=== PATIENT | female | born 1965 | race Caucasian/White ===

== ENCOUNTER → 2018-03-05 12:58 | Outpatient (BNVA) | payer MEDICARE, MEDICAID, SELFPAY | PROVIDERS: PCP Internal Medicine; Visit Provider Student in an Organized Health Care Education/Training Program | DX: M23.92 Unspecified internal derangement of left knee (principal); M25.562 Pain in left knee; M19.90 Unspecified osteoarthritis, unspecified site; E11.39 Type 2 diabetes mellitus with other diabetic ophthalmic complication; M75.31 Calcific tendinitis of right shoulder; M25.511 Pain in right shoulder; M25.512 Pain in left shoulder | CPT/HCPCS: 20610; 99204; J1040 ==

== ENCOUNTER → 2018-04-16 13:12 | Outpatient (BNVA) | payer MEDICARE, MEDICAID, SELFPAY | PROVIDERS: PCP Internal Medicine; Referring Provider Internal Medicine; Visit Provider Surgery | DX: D48.5 Neoplasm of uncertain behavior of skin (principal) | CPT/HCPCS: 11442; 99203; 99213 ==

== ENCOUNTER 2018-04-16 16:20 | Outpatient (REF) | payer MEDICARE, MEDICAID, SELFPAY ==
--- NOTE | 2018-04-16 13:45 | SKI_PTH ---
PATIENT: Trini Sierra LOC: [facility] U#:[id number] AGE/SX: 52/F ROOM: RE04/16/[address]: Gary Mittal DO : 1965 BED: DIS: 04/16/2018 SPEC #: [id number] RECD: 04/16/18 17:53 STATUS: ABDI REQ #: [id number] JAMES: 04/16/18 13:[address]: Gary Mittal DEPT: Surgical Specimen RECD BY: Gale Natarajan ENTERED: 04/16/18 17:54 SP TYPE: SKI OTHR DR: Kathy Solano MD Tissues: 1 - SKIN BIOPSY(SHAVE/PUNCH) Procedures: SKIN LEVEL 4 Comments: [id number]
== END 2018-04-16 16:40 ==
LOC: LBN 16:20
PROVIDERS: PCP Internal Medicine; Visit Provider Surgery
DX: L92.8 Other granulomatous disorders of the skin and subcutaneous tissue (principal)
CPT/HCPCS: 88305

== ENCOUNTER 2018-05-01 14:37 | Outpatient (CLI) | payer MEDICARE, MEDICAID, SELFPAY ==
[2018-05-01 15:02] LABS: HGB 14.1 g/dL (12.0-15.5); Mean Corp. HGB Concentration 34.4 g/dL (32.0-36.0); Mean Corpuscular Volume 84.4 fL (80-95); Mean Platelet Volume 10.4 fL (8.0-11.0); Platelet Count 220 x1000/uL (130-400); RBC 4.86 m/cumm (4.00-5.20); RBC Distribution Width 14.4 % (11.7-14.6); White Blood Cell Count 7.26 k/cumm (4.4-10.8)
[2018-05-01 16:06] LABS: ALT 42 U/L (12-78); AST 28 U/L (15-37); Albumin 3.8 g/dL (3.4-5.0); Alkaline Phosphatase 71 U/L (46-116); BUN 19 mg/dL (7-18); Bilirubin, Total 0.4 mg/dL (0.2-1.0); CREATININE 0.84 mg/dL (0.55-1.02); Calcium 9.2 mg/dL (8.5-10.1); Chloride 104 mmol/L (98-107); Glucose 83 mg/dL (70-100); Potassium 3.7 mmol/L (3.5-5.1); Sodium 141 mmol/L (136-145); Total Protein 7.1 g/dL (6.4-8.2)
[2018-05-01 17:21] LABS: Cholesterol 189 mg/dL (50-200); HDL Cholesterol 46 mg/dL (40-60); LDL CHOLESTEROL 119 mg/dL (<100); Triglyceride 178 mg/dL (30-150)
[2018-05-03 08:04] LABS: Iron 61 ug/dL (50-175)
[2018-05-03 08:17] LABS: Ferritin 80 ng/mL (8-388); TSH (W/Ref FT4) 0.47 uIU/mL (0.358-3.74)
== END 2018-05-01 14:57 ==
PROVIDERS: PCP Internal Medicine; Visit Provider Internal Medicine
DX: L08.9 Local infection of the skin and subcutaneous tissue, unspecified (principal); E11.9 Type 2 diabetes mellitus without complications; N28.9 Disorder of kidney and ureter, unspecified; G47.33 Obstructive sleep apnea (adult) (pediatric); G47.61 Periodic limb movement disorder
CPT/HCPCS: 36415; 80053; 80061; 83721; 85027; 82728; 83036; 83540; 84443

== ENCOUNTER → 2018-05-02 08:58 | Outpatient (BNVA) | payer MEDICARE, MEDICAID, SELFPAY | PROVIDERS: PCP Internal Medicine; Referring Provider Internal Medicine; Visit Provider Student in an Organized Health Care Education/Training Program | DX: M75.31 Calcific tendinitis of right shoulder (principal); E11.9 Type 2 diabetes mellitus without complications; Z79.4 Long term (current) use of insulin | CPT/HCPCS: 20610; 99213; J1040 ==

== ENCOUNTER → 2018-06-13 13:17 | Outpatient (BNVA) | payer MEDICARE, MEDICAID, SELFPAY | PROVIDERS: PCP Internal Medicine; Referring Provider Internal Medicine; Visit Provider Student in an Organized Health Care Education/Training Program | DX: M75.31 Calcific tendinitis of right shoulder (principal); E11.9 Type 2 diabetes mellitus without complications; Z79.4 Long term (current) use of insulin | CPT/HCPCS: 99213 ==

== ENCOUNTER 2018-09-19 10:38 | Outpatient (CLI) | payer OTHER, MEDICAID, SELFPAY ==
[2018-09-19 13:08] LABS: TSH (W/Ref FT4) 1.73 uIU/mL (0.358-3.74)
== END 2018-09-19 10:58 ==
PROVIDERS: PCP Internal Medicine; Visit Provider Internal Medicine
DX: R79.89 Other specified abnormal findings of blood chemistry (principal)
CPT/HCPCS: 36415; 84443

== ENCOUNTER 2018-10-07 08:01 | Emergency (ER) | payer OTHER, MEDICAID, SELFPAY ==
[2018-10-07 08:11] VITALS: BP 123/80; PULSE 82; RESP 18; TEMP 36.9; O2SAT 98
--- NOTE | 2018-10-07 09:16 | ED.GENADUL_ITS ---
Discharge Plan Disposition Patient Disposition: HOME Condition: Stable Discharge Details Chief Complaint: Sorethroat Clinical Impression: Sore throat, Dry throat, Seasonal allergies Primary Care Provider: Kathy Alejandra ED Provider: Radha Bhatti Home Meds and New Rx's Prescriptions: Continued diclofenac sodium 1 % gel 2 gm TP QID PRNRF: 0 loratadine [Claritin] 10 mg tablet 10 mg PO DAILY Qty: 90 RF: 3 diclofenac potassium 50 mg tablet 50 mg PO BID RF: 0 tramadol 50 mg tablet 50 mg PO Q8H MDD 150 Qty: 90 RF: 0 nystatin 100,000 unit/gram powder 1 applic Topical BID PRN Qty: 60 RF: 3 Boost Glucose Control 0.06-1.1 gram-kcal/mL liquid 237 ml PO DAILY Qty: 14 RF: 5 fluconazole [Diflucan] 150 mg tablet 150 mg PO once weekly x3 Qty: 3 RF: 0 furosemide 20 mg tablet 20 mg PO DAILY Qty: 60 RF: 2 gabapentin 600 mg tablet 600 mg PO TID Qty: 90 RF: 6 Restasis 0.05 % dropperette 1 drp OP Q12H RF: 0 Fritz Aerosol [place] [employer] spacer .ROUTE .MEDSUPPLY Qty: 1 RF: 0 multivitamin [Multi-Day] 1 EACH tablet 1 ea PO DAILY RF: 0 ascorbic acid (vitamin C) [Vitamin C] 500 MG tablet 500 mg PO BID RF: 0 Menopause Support 20 MG tablet 20 mg PO BID RF: 0 cyanocobalamin (vitamin B-12) [Vitamin B-12] 1,000 MCG tablet 1,000 mcg PO DAILY RF: 0 primrose 1 cap PO DAILY RF: 0 cholecalciferol (vitamin D3) 1,000 UNIT tablet 1,000 unit PO DAILY RF: 0 blood-glucose meter [OneTouch Ultra2] 1 EACH kit 1 ea Miscellaneous DAILY Qty: 1 RF: 1 Humira 40 MG/0.8 ML kit 40 mg SQ Q 14 DAYS RF: 0 OneTouch Ultra Test 1 EACH strip 1 ea Miscellaneous TID Qty: 200 RF: 4 lancets [OneTouch Delica Lancets] 1 EACH misc 1 ea Miscellaneous TID Qty: 200 RF: 4 pen needle, diabetic 1 EACH needle 1 ea Sub-Q AC & HS Qty: 100 RF: 3 Potassium Chloride 20 MEQ packet 20 meq PO BID Qty: 30 RF: 2 pravastatin 40 MG tablet 40 mg PO DAILY Qty: 90 RF: 3 Jardiance 25 MG tablet 25 mg PO DAILY Qty: 30 RF: 11 triamcinolone acetonide 15 GM cream 15 gm Topical BID Qty: 1 RF: 2 esomeprazole magnesium [Nexium] 40 MG capsule,delayed release(DR/EC) 40 mg PO BID Qty: 180 RF: 4 albuterol sulfate [ProAir HFA] 90 mcg/actuation HFA aerosol inhaler 2 puff Inhalation Q4H PRN Qty: 1 RF: 0 ipratropium bromide 42 mcg (0.06 %) spray,non-aerosol 2 spray ELVER TID Qty: 15 RF: 3 fluticasone propionate 50 mcg/actuation spray,suspension 1 spray NS DAILY PRN (Reason: nasal congestion) Qty: 1 RF: 3 pen needle, diabetic [Unifine Pentips] 31 gauge x 3/16 needle 1 ea Sub-Q AC & HS Qty: 450 RF: 3 Tresiba FlexTouch U-100 100 unit/mL (3 mL) insulin pen 65 - 70 unit SC DAILY Qty: 15 RF: 4 Humalog KwikPen Insulin 100 unit/mL insulin pen 10 unit SC QAC Qty: 15 RF: 5 zolpidem 10 mg tablet 10 mg PO HS Qty: 60 RF: 2 acetaminophen [Tylenol Extra Strength] 500 MG tablet 2 tab PO Q6H PRN PRNQty: 0 RF: 0 Discharge Instructions Instructions: Pharyngitis (ED), Allergies (ED) Additional Instructions: Use your Flonase and Claritin that you have at home as directed. Use [id number] saline nose spray to help with lubrication in your nose and back of the throat. Alternate Tylenol Motrin as needed and directed for pain. Gargle with salt water and use throat lozenges to help with sore throat. Follow-up with primary care doctor in 3 days for reevaluation. Return immediately to the emergency department with any worsening or new concerning symptoms. Discharge Data Discharge Date/Time-TO BE ENTERED AT DEPARTURE: 10/07/18 09:26 Discharge Physician: Radha Bhatti Medical Decision Making 53-year-old female with a history of fibromyalgia, migraine, GERD, diabetes, hyperlipidemia and bipolar disorder who presents with sore throat for the past 4 days, dry throat, sneezing, watery eyes as well as dry cough since last night. Recent positive sick contact with strep throat. Vitals within normal limits. Rapid strep done on arrival and negative. Essentially normal ENT exam. No peritonsillar abscess, drooling, trismus, or lymphadenopathy. Lungs clear to auscultation. Patient's overall symptom presentation appears likely consistent with postnasal drainage causing sore throat likely due to allergies. Also discussed that her symptoms could be viral in nature. Patient states she has loratadine and Flonase at home. She is instructed to use saline nose spray or sinus rinse kit to help with lubrication. She is instructed to drink plenty of fluids. I do not see an indication for antibiotics and patient is agreeable. She is instructed to follow-up with a primary care doctor for reevaluation and return here at any time if worse. HPI General Mode of arrival: ambulatory . Date/Time Provider Initiated Documentation: 10/07/18 08:54 . Limitations to Documentation: no limitations . Information obtained by: patient . HPI Narrative: Pt is a 53yo female with a history of fibromyalgia, migraines, GERD, diabetes, hyperlipidemia and bipolar disorder who presents with sore throat for the past 4 days. Patient states the sore throat is bilateral but worse on the right. She states it was worse this morning. She states she mainly feels like she has a dry throat that hurts when she swallows. She saw her PCP for this complaint 2 days ago and had a rapid strep which was negative. She also admits to a dry cough since last night. She states she is able to eat and drink but with some discomfort. She was recently on antibiotics for a left ear infection but states this ear infection completely resolved. She denies any fever, ear pain, headache, cough, chest pain or shortness of breath. She states she is here to make sure she does not have strep throat as her granddaughter recently tested positive for this. Related Data Home Medications Medication Instructions Recorded Confirmed Menopause Support 20 mg PO BID 09/29/12 10/07/18 ascorbic acid (vitamin C) [Vitamin 500 mg PO BID 09/29/12 10/07/18 C] multivitamin [Multi-Day] 1 ea PO DAILY 09/29/12 10/07/18 [employer] 1 cap PO DAILY 05/29/14 10/07/18 cyanocobalamin (vitamin B-12) 1,000 mcg PO DAILY 05/29/14 10/07/18 [Vitamin B-12] cholecalciferol (vitamin D3) 1,000 unit PO DAILY 10/09/15 10/07/18 blood-glucose meter [OneTouch #1 kit 11/30/16 10/07/18 Ultra2] Humira 40 mg SQ Q 14 DAYS kit 03/22/17 10/07/18 acetaminophen [Tylenol Extra 2 tab PO Q6H PRN PRN #0 tab-cap 04/22/17 10/07/18 Strength] OneTouch Ultra Test #200 strip 06/02/17 10/07/18 lancets [LYFE KitchenTouch Delica Lancets] #200 ea 09/11/17 10/07/18 pen needle, diabetic #100 dis.ndl 09/28/17 10/07/18 pravastatin 40 mg PO DAILY #90 tab-cap 10/27/17 10/07/18 Jardiance 25 mg PO DAILY #30 cap 12/08/17 10/07/18 triamcinolone acetonide 15 gm TOPICAL BID #1 script 12/18/17 10/07/18 esomeprazole magnesium [Nexium] 40 mg PO BID #180 tab-cap NS 01/18/18 10/07/18 diclofenac 1 % topical gel 2 gm TP QID PRN 03/22/18 10/07/18 loratadine 10 mg tablet 10 mg PO DAILY #90 tab-cap 03/22/18 10/07/18 inhalational spacing device #1 each 05/01/18 10/07/18 albuterol sulfate HFA 90 2 puff INHALATION Q4H PRN #1 05/09/18 10/07/18 mcg/actuation aerosol inhaler inhaler ipratropium bromide 42 mcg (0.06 2 spray ELVER TID #15 ml 07/01/18 10/07/18 %) nasal spray fluticasone propionate 50 1 spray NS DAILY PRN #1 bottle 07/11/18 10/07/18 mcg/actuation nasal spray,suspension pen needle, diabetic 31 gauge x #450 each 08/28/18 10/07/1809/08 insulin degludec (U-100) 100 65 - 70 unit SC DAILY #15 ml 09/17/18 10/07/18 unit/mL (3 mL) subcutaneous pen insulin lispro (U- 100) 100 10 unit SC QAC #15 ml 09/17/18 10/07/18 unit/mL subcutaneous pen cyclosporine 0.05 % eye drops in a 1 drp OP Q12H 09/19/18 10/07/18 dropperette diclofenac potassium 50 mg tablet 50 mg PO BID 09/19/18 10/07/18 fluconazole 150 mg tablet 150 mg PO once weekly x3 #3 tab-cap 09/19/18 10/07/18 furosemide 20 mg tablet 20 mg PO DAILY #60 tab-cap 09/19/18 10/07/18 gabapentin 600 mg tablet 600 mg PO TID #90 tab 09/19/18 10/07/18 nutrition tx glu 237 ml PO DAILY #14 bottle 09/19/18 10/07/18 intol,lac-free,soy-fiber 0.06 gram-1.1 kcal/mL liquid nystatin 100,000 unit/gram topical 1 applic TOPICAL BID PRN #60 gm 09/19/18 10/07/18 powder tramadol 50 mg tablet 50 mg PO Q8H #90 tab MDD 150 09/19/18 10/07/18 zolpidem 10 mg tablet 10 mg PO HS #60 tab 10/04/18 10/07/18 Previous Rx's Medication Instructions Recorded acetaminophen [Tylenol Extra 2 tab PO Q6H PRN PRN #0 tab-cap 04/22/17 Strength] OneTouch Ultra Test #200 strip 06/02/17 lancets [OneTouch Delica Lancets] #200 ea 09/11/17 pen needle, diabetic #100 dis.ndl 09/28/17 pravastatin 40 mg PO DAILY #90 tab-cap 10/27/17 Jardiance 25 mg PO DAILY #30 cap 12/08/17 triamcinolone acetonide 15 gm TOPICAL BID #1 script 12/18/17 esomeprazole magnesium [Nexium] 40 mg PO BID #180 tab-cap NS 01/18/18 loratadine 10 mg tablet 10 mg PO DAILY #90 tab-cap 03/22/18 inhalational spacing device #1 each 05/01/18 albuterol sulfate HFA 90 2 puff INHALATION Q4H PRN #1 05/09/18 mcg/actuation aerosol inhaler inhaler ipratropium bromide 42 mcg (0.06 2 spray ELVER TID #15 ml 07/01/18 %) nasal spray fluticasone propionate 50 1 spray NS DAILY PRN #1 bottle 07/11/18 mcg/actuation nasal spray,suspension pen needle, diabetic 31 gauge x #450 each 08/28/1809/08 insulin degludec (U-100) 100 65 - 70 unit SC DAILY #15 ml 09/17/18 unit/mL (3 mL) subcutaneous pen insulin lispro (U- 100) 100 10 unit SC QAC #15 ml 09/17/18 unit/mL subcutaneous pen fluconazole 150 mg tablet 150 mg PO once weekly x3 #3 tab-cap 09/19/18 furosemide 20 mg tablet 20 mg PO DAILY #60 tab-cap 09/19/18 gabapentin 600 mg tablet 600 mg PO TID #90 tab 09/19/18 nutrition tx glu 237 ml PO DAILY #14 bottle 09/19/18 intol,lac-free,soy-fiber 0.06 gram-1.1 kcal/mL liquid nystatin 100,000 unit/gram topical 1 applic TOPICAL BID PRN #60 gm 09/19/18 powder tramadol 50 mg tablet 50 mg PO Q8H #90 tab MDD 150 09/19/18 zolpidem 10 mg tablet 10 mg PO HS #60 tab 10/04/18 Allergies Allergy/AdvReac Type Severity Reaction Status Date / Time divalproex sodium AdvReac Intermediate MENTAL, Verified 10/07/18 08:14 [From Depakote] PHYSICAL REACTIONS lithium AdvReac Intermediate MENTAL, Verified 10/07/18 08:14 PHYSICAL REACTIONS simvastatin AdvReac Mild MYALGIAS Verified 10/07/18 08:14 thioridazine AdvReac Mild PSYCHOTIC Verified 10/07/18 08:14 adhesive tape AdvReac Verified 10/07/18 08:14 General Stated Complaint: Sorethroat NEGRITO: 4 Review of Systems Review of Systems All systems reviewed & are unremarkable except as noted in HPI and below Constitutional Reports as per HPI, Denies chills and Denies fever(s) Eyes Denies blurry vision and Reports other (watery eyes) ENT Denies dizziness, Reports nasal congestion, Reports post nasal drip, Reports sore throat, Denies throat swelling and Reports other (sneezing) Cardiovascular Denies chest pain and Denies dyspnea Respiratory Reports cough and Denies dyspnea Gastrointestinal Denies abdominal pain, Denies diarrhea and Denies vomiting Genitourinary Denies hematuria and Denies dysuria Musculoskeletal Denies back pain and Denies numbness Integumentary/Breasts Denies lesions and Denies rash Neurologic Denies dizziness, Denies focal weakness and Denies numbness Allergic/Immunologic Denies throat swelling [facility] Medical History Internal derangement of left knee (Acute) Undifferentiated inflammatory arthritis (Chronic) Calcific tendinitis of right shoulder (Acute) Retinopathy (Chronic 12/01/16) Primary fibromyalgia syndrome (Chronic) Posterior vitreous detachment of left eye (Acute 08/16/16) Obesity (Acute) Neck pain (Chronic 08/12/14) Migraine (Chronic) Insomnia (Chronic) Hyperlipidemia (Chronic 10/02/12) Gastroesophageal reflux disease (Chronic) Diabetes mellitus (Chronic 10/02/12) Depression (Chronic 03/16/17) Chronic pain syndrome (Chronic) Diabetes type 2, controlled (Chronic) Bipolar disorder (Chronic) Vitamin B12 deficiency (Resolved 05/29/14) Surgical History Status post excisional biopsy (Resolved 04/16/18) Hysterectomy, Laproscopic (~01/2011) Open Carpal Tunnel release (~2000) Family History Mother Diabetes Hyperlipidemia Sister No problems noted. Brother Asthma Brother No problems noted. Brother No problems noted. Grandfather Heart disease Grandfather No problems noted. Grandmother Heart disease Grandmother No problems noted. Son Asthma Son Asthma Son No problems noted. 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 Duration: 15-30 minutes/day Frequency: 1-2 times per week Theodora/Sikhism: Anabaptist Do you feel safe at home: Yes Do you feel safe in your relationship?: Yes Exam Const General: cooperative and healthy appearing Orientation: alert and awake [facility] Head: normal to inspection Ears: hearing grossly normal bilaterally, external ears normal and TM's normal bilaterally General nose exam: external nose normal Face and sinus: normal facial exam and sinus tenderness frontal (right ) Mouth: oral mucosae normal Teeth and gingiva: dentition normal Throat: posterior oropharynx normal, uvula midline, no peritonsillar masses, no postnasal drainage and no uvular edema Eyes General: appearance normal, both eyes and all related structures Eyelids: eyelids normal Pupils: PERRL EOM: EOM intact bilaterally Neck Neck: normal visual inspection Lymphatic: no lymphadenopathy noted Chest Chest: normal inspection of the chest Resp Effort & Inspection: normal respiratory effort and able to speak in complete sentences Auscultation: clear to auscultation bilaterally Cardio Rate: regular rate Rhythm: regular rhythm GI Inspection: normal to inspection Palpation: soft, not firm, no guarding, no hepatosplenomegaly, no masses and nontender Auscultation: normal bowel sounds Skin General skin exam: no rashes or lesions noted Neuro General: alert and awake Cognition: normal cognition Speech: speech normal Gait: normal gait Motor: muscle tone normal throughout Sensory Exam: no sensory deficits noted Extrem General: normal to inspection, full ROM and no edema Psych Appearance: grossly normal Mental Status: mental status grossly normal Speech and Movement: speech and movement normal Affect: normal affect Thought Process: normal Course Vital Signs Temperature 98.4 F 10/07/18 08:11 Pulse 82 10/07/18 08:11 Respiratory Rate 18 10/07/18 08:11 Blood Pressure 123/80 10/07/18 08:11 Pulse Oximetry 98 10/07/18 08:11 Temperature 98.4 F 10/07/18 08:11 Pulse 82 10/07/18 08:11 Respiratory Rate 18 10/07/18 08:11 Respiratory Effort Non-Labored 10/07/18 08:11 Blood Pressure 123/80 10/07/18 08:11 Pulse Oximetry 98 10/07/18 08:11 Oxygen Delivery Method Room Air 10/07/18 08:11 Oxygen Flow Rate 0 10/07/18 08:11 Pain Level 7 10/07/18 08:11 Lab/Test Results Lab/Test Results: 10/07/18 08:17 Pharynx Streptococcus Screen ([facility]) - Pending
== END 2018-10-07 09:26 | disposition home or self-care (01) ==
PROVIDERS: Emergency Provider Physician Assistant; PCP Internal Medicine
DX: J02.9 Acute pharyngitis, unspecified (principal); J30.2 Other seasonal allergic rhinitis
CPT/HCPCS: 99282; 87081

== ENCOUNTER 2019-02-04 13:49 | Outpatient (CLI) | payer OTHER, MEDICAID, SELFPAY ==
[2019-02-04 14:12] LABS: Abs Immature Grans 0.02 k/cumm (0.0-0.09); Absolute Basophil Count 0.02 k/cumm (0.0-0.2); Absolute Eosinophil Count 0.19 k/cumm (0.0-0.7); Absolute Lymphocyte Count 2.13 k/cumm (1.2-3.4); Absolute Monocyte Count 0.44 k/cumm (0.11-0.7); Absolute Neutrophil Count 4.83 k/cumm (1.2-6.7); Basophils % 0.3; Eosinophils % 2.5; HCT 44.3 % (36.0-46.0); HGB 15.4 g/dL (12.0-15.5); Immature Grans % 0.3; Lymphocytes % 27.9; Mean Corp. HGB Concentration 34.8 g/dL (32.0-36.0); Mean Corpuscular Hemoglobin 29.1 pg (27.0-33.0); Mean Corpuscular Volume 83.7 fL (80-95); Mean Platelet Volume 10.6 fL (8.0-11.0); Monocytes % 5.8; Neutrophils % 63.2; Platelet Count 221 x1000/uL (130-400); RBC 5.29 m/cumm (4.00-5.20); RBC Distribution Width 13.4 % (11.7-14.6); White Blood Cell Count 7.63 k/cumm (4.4-10.8)
[2019-02-04 14:38] LABS: Mono Screening Negative (Negative)
== END 2019-02-04 14:09 ==
PROVIDERS: PCP Internal Medicine; Visit Provider Family Medicine
DX: J02.9 Acute pharyngitis, unspecified (principal)
CPT/HCPCS: 36415; 85025; 86308

== ENCOUNTER 2019-04-16 11:47 | Outpatient (CLI) | payer OTHER, SELFPAY ==
[2019-04-16 12:32] LABS: Hemoglobin A1C 7.2 % (4.5-6.2)
== END 2019-04-16 12:07 ==
PROVIDERS: PCP Internal Medicine; Visit Provider Pharmacist
DX: E11.65 Type 2 diabetes mellitus with hyperglycemia (principal)
CPT/HCPCS: 36415; 83036

== ENCOUNTER 2019-08-18 12:41 | Emergency (ER) | payer OTHER, MEDICAID, SELFPAY ==
[2019-08-18 12:44] VITALS: BP 125/99; PULSE 97; RESP 18; TEMP 36.6; O2SAT 97
[2019-08-18] MEDS: Normal Saline 1,000 ML 1000 ML IV (13:59)
[2019-08-18 14:05] LABS: Abs Immature Grans 0.03 k/cumm (0.0-0.09); Absolute Basophil Count 0.05 k/cumm (0.0-0.2); Absolute Eosinophil Count 0.13 k/cumm (0.0-0.7); Absolute Lymphocyte Count 2.92 k/cumm (1.2-3.4); Absolute Monocyte Count 0.71 k/cumm (0.11-0.7); Absolute Neutrophil Count 5.13 k/cumm (1.2-6.7); Basophils % 0.6; Eosinophils % 1.4; HCT 47.1 % (36.0-46.0); HGB 16.3 g/dL (12.0-15.5); Immature Grans % 0.3 %; Lymphocytes % 32.6; Mean Corp. HGB Concentration 34.6 g/dL (32.0-36.0); Mean Corpuscular Hemoglobin 29.5 pg (27.0-33.0); Mean Corpuscular Volume 85.2 fL (80-95); Mean Platelet Volume 10.2 fL (8.0-11.0); Monocytes % 7.9; Neutrophils % 57.2; Platelet Count 200 x1000/uL (130-400); RBC 5.53 m/cumm (4.00-5.20); RBC Distribution Width 13.7 % (11.7-14.6); White Blood Cell Count 8.97 k/cumm (4.4-10.8)
[2019-08-18 14:12] LABS: Mono Screening Negative (Negative)
--- NOTE | 2019-08-18 15:47 | W.ED.GENAD ---
Discharge Plan Disposition Patient Disposition: HOME Condition: Stable Discharge Details Chief Complaint: Sorethroat Clinical Impression: Strep throat Primary Care Provider: Kathy Duenas ED Provider: Lois Bishop Home Meds and New Rx's Prescriptions: New penicillin V potassium 500 mg tablet 500 mg PO TID Qty: 30 RF: 0 Continued diclofenac sodium 1 % gel 2 gm TP QID PRNRF: 0 diclofenac potassium 50 mg tablet 50 mg PO BID RF: 0 Restasis 0.05 % dropperette 1 drp OP Q12H RF: 0 (DME) Fritz Aerosol [place]igo Enhancer spacer See Dose Instructions .ROUTE .MEDSUPPLY Qty: 1 RF: 0 albuterol sulfate [ProAir HFA] 90 mcg/actuation HFA aerosol inhaler 2 puff Inhalation Q4H PRN Qty: 8.5 RF: 3 (DME) [place] Ultra Test strip 1 ea Miscellaneous TID Qty: 200 RF: 4 (DME) lancets [[place] Delica Lancets] 33 gauge misc 1 ea Miscellaneous TID Qty: 200 RF: 4 pravastatin 40 mg tablet 40 mg PO DAILY Qty: 90 RF: 3 ipratropium bromide 42 mcg (0.06 %) spray,non-aerosol 2 spray ELVER TID PRNRF: 0 nystatin 100,000 unit/gram powder 1 applic Topical BID PRN Qty: 60 RF: 3 multivitamin [Multi-Day] 1 EACH tablet 1 ea PO DAILY RF: 0 ascorbic acid (vitamin C) [Vitamin C] 500 MG tablet 500 mg PO BID RF: 0 Menopause Support 20 MG tablet 20 mg PO BID RF: 0 cyanocobalamin (vitamin B-12) [Vitamin B-12] 1,000 MCG tablet 1,000 mcg PO DAILY RF: 0 primrose 1 cap PO DAILY RF: 0 cholecalciferol (vitamin D3) 1,000 UNIT tablet 1,000 unit PO DAILY RF: 0 (DME) blood-glucose meter [TopTenREVIEWS Ultra2 Meter] 1 EACH kit 1 ea Miscellaneous DAILY Qty: 1 RF: 1 (DME) pen needle, diabetic 1 EACH needle 1 ea Sub-Q AC & HS Qty: 100 RF: 3 Potassium Chloride 20 MEQ packet 20 meq PO BID Qty: 30 RF: 2 (DME) pen needle, diabetic [Unifine Pentips] 31 gauge x 3/16 needle 1 ea Sub-Q AC & HS Qty: 450 RF: 3 Jardiance 25 mg tablet 25 mg PO DAILY Qty: 90 RF: 4 fluticasone propionate 50 mcg/actuation spray,suspension 1 spray NS DAILY PRN (Reason: nasal congestion) Qty: 1 RF: 3 furosemide 20 mg tablet 20 mg PO DAILY Qty: 90 RF: 2 gabapentin 600 mg tablet 600 mg PO TID Qty: 300 RF: 3 esomeprazole magnesium [Nexium] 40 mg capsule,delayed release(DR/EC) 40 mg PO BID Qty: 180 RF: 4 triamcinolone acetonide 0.5 % cream 1 applic Topical BID Qty: 15 RF: 2 mupirocin calcium 2 % cream 1 applic TP TID Qty: 15 RF: 1 Tresiba FlexTouch U-100 100 unit/mL (3 mL) insulin pen 65 - 70 unit SC DAILY Qty: 30 RF: 12 insulin lispro [Humalog KwikPen Insulin] 100 unit/mL insulin pen 10 unit SC QAC Qty: 15 RF: 12 loratadine [Claritin] 10 mg tablet 10 mg PO DAILY Qty: 90 RF: 3 zolpidem 10 mg tablet 10 mg PO HS Qty: 90 RF: 2 tramadol 50 mg tablet 50 mg PO Q8H MDD 150 Qty: 90 RF: 0 acetaminophen [Tylenol Extra Strength] 500 MG tablet 2 tab PO Q6H PRN PRNQty: 0 RF: 0 Remicade 100 mg Recon Soln IV RF: 0 Discharge Instructions Instructions: Strep Throat (ED) Additional Instructions: Drink plenty of fluids. Warm salt water gargles. Cepacol lozenge for comfort. Use antibiotic as prescribed. Be sure to throw away her toothbrush on day 3 and day 10 of treatment. Rest activities as tolerated. Follow-up with your primary care doctor for reevaluation next week as discussed. Consider having your grandchild and family members tested for colonization of strep which may be the source of your infections as discussed. Return for any worsening, concerns or alarming symptoms. Specifically observe for difficulty swallowing, drooling, high fevers or signs of dehydration. Medical Decision Making Is a 53-year-old patient presenting to the emergency room with complaints of sore throat. Patient has had sore throat intermittently for the last 2 months has been treated with multiple courses of antibiotics after being positively diagnosed with strep and having subsequent tonsillar infections. Patient reports 1 week of sore throat after feeling improved for several weeks. Patient reports mild laryngitis associated. Able to eat and drink without difficulty. Patient does report appetite suppression in the last few days. Denies abdominal pain associated. Intermittent headaches present. No measured fever or chills. Patient does have a cough which has been present with no associated production, difficulty breathing shortness of breath or wheezing. Will recommend mono testing given the persistence of pharyngeal complaints Over the last several months in the left upper quadrant pain noted on exam. Patient with mild tonsillar exudates present and pharyngeal erythema present with cervical lymphadenopathy associated. Strep testing pending. Patient does feel somewhat dehydrated will provide IV fluids. Greenup testing negative. Rapid strep testing positive. Labs reviewed with no associated leukocytosis. Discussed positive strep testing today. Patient has not been on antibiotics in the last 30 days therefore will prescribe penicillin. Patient agrees with this plan of care. We did discuss etiology of patient's strep as she is concerned she has had frequent infections recently. Patient is immunocompromise due to Remicade which she takes however she has been throwing away her toothbrush, inhalers and lip products during and after treatment. She does not feel she is likely reinfecting herself. She does care to her grandchild who was positive for strep in the last few months. I am concerned that there is a possibility that she is being exposed to a chronic carrier and therefore I have recommended considering her family to have strep testing. Patient agrees with plan of care. Patient stable, requesting discharge home at this time. HPI General Date/Time Provider Initiated Documentation: 08/18/19 12:52. HPI Narrative: Is a 53-year-old patient presenting for complaints of sore throat. Patient reports several tonsil infections over the last 2 months. Patient reports she has been treated with antibiotics multiple times. Last course of antibiotics was greater than 30 days ago. Patient reports in the last week onset of sore throat. Patient reports mild laryngitis associated. Is able to eat and drink. Patient does report painful swallowing. Patient denies measured fever or chills. Patient does report a dry cough. No associated difficulty breathing shortness of breath or wheezing. Denies abdominal pain, nausea, vomiting or diarrhea. Patient reports intermittent headache. No associated dizziness. Related Data Home Medications Medication Instructions Recorded Confirmed Menopause Support 20 mg PO BID 04/06/13 01/03/20 ascorbic acid (vitamin C) [Vitamin 500 mg PO BID 09/29/12 08/18/19 C] multivitamin [Multi-Day] 1 ea PO DAILY 09/29/12 08/18/19 [place] 1 cap PO DAILY 05/29/14 06/28/19 cyanocobalamin (vitamin B-12) 1,000 mcg PO DAILY 05/29/14 08/18/19 [Vitamin B-12] cholecalciferol (vitamin D3) 1,000 unit PO DAILY 10/09/15 08/18/19 blood-glucose meter [OneTouch #1 kit 11/30/16 06/28/19 Ultra2 Meter] acetaminophen [Tylenol Extra 2 tab PO Q6H PRN PRN #0 tab-cap 04/22/17 08/18/19 Strength] pen needle, diabetic #100 dis.ndl 09/28/17 06/28/19 diclofenac sodium 1 % topical gel 2 gm TP QID PRN 03/22/18 08/18/19 inhalational spacing device #1 each 05/01/18 06/28/19 pen needle, diabetic 31 gauge x #450 each 08/28/18 06/28/1909/08 cyclosporine 0.05 % eye drops in a 1 drp OP Q12H 09/19/18 08/18/19 dropperette diclofenac potassium 50 mg tablet 50 mg PO BID 09/19/18 08/18/19 Nexium 40 mg capsule,delayed 40 mg PO BID #180 tab-cap NS 10/18/18 08/18/19 release empagliflozin 25 mg tablet 25 mg PO DAILY #90 cap 10/18/18 08/18/19 fluticasone propionate 50 1 spray NS DAILY PRN #1 bottle 10/18/18 08/18/19 mcg/actuation nasal spray,suspension furosemide 20 mg tablet 20 mg PO DAILY #90 tab-cap 10/18/18 08/18/19 gabapentin 600 mg tablet 600 mg PO TID #300 tab 10/18/18 08/18/19 triamcinolone acetonide 0.5 % 1 applic TOPICAL BID #15 gm 10/18/18 08/18/19 topical cream albuterol sulfate 90 mcg/actuation 2 puff INHALATION Q4H PRN #8.5 gm 10/24/18 08/18/19 aerosol inhaler blood sugar diagnostic #200 strip 10/24/18 06/28/19 lancets 33 gauge #200 ea 10/24/18 06/28/19 pravastatin 40 mg tablet 40 mg PO DAILY #90 tab-cap 10/24/18 08/18/19 mupirocin calcium 2 % topical cream 1 applic TP TID #15 gm 02/27/19 06/28/19 ipratropium bromide 42 mcg (0.06 2 spray ELVER TID PRN ml 03/04/19 08/18/19 %) nasal spray nystatin 100,000 unit/gram topical 1 applic TOPICAL BID PRN #60 gm 03/04/19 08/18/19 powder insulin degludec 100 unit/mL (3 65 - 70 unit SC DAILY #30 ml 03/25/19 06/28/19 mL) subcutaneous pen insulin lispro 100 unit/mL 10 unit SC QAC #15 ml 03/25/19 08/18/19 subcutaneous pen loratadine 10 mg tablet 10 mg PO DAILY #90 tab-cap 03/25/19 08/18/19 zolpidem 10 mg tablet 10 mg PO HS #90 tab 04/30/19 08/18/19 tramadol 50 mg tablet 50 mg PO Q8H #90 tab MDD 150 08/02/19 08/18/19 Remicade IV 08/18/19 penicillin V potassium 500 mg PO TID #30 tab 08/18/19 Previous Rx's Medication Instructions Recorded acetaminophen [Tylenol Extra 2 tab PO Q6H PRN PRN #0 tab-cap 04/22/17 Strength] pen needle, diabetic #100 dis.ndl 09/28/17 inhalational spacing device #1 each 05/01/18 pen needle, diabetic 31 gauge x #450 each 08/28/18/ Nexium 40 mg capsule,delayed 40 mg PO BID #180 tab-cap NS 10/18/18 release empagliflozin 25 mg tablet 25 mg PO DAILY #90 cap 10/18/18 fluticasone propionate 50 1 spray NS DAILY PRN #1 bottle 10/18/18 mcg/actuation nasal spray,suspension furosemide 20 mg tablet 20 mg PO DAILY #90 tab-cap 10/18/18 gabapentin 600 mg tablet 600 mg PO TID #300 tab 10/18/18 triamcinolone acetonide 0.5 % 1 applic TOPICAL BID #15 gm 10/18/18 topical cream albuterol sulfate 90 mcg/actuation 2 puff INHALATION Q4H PRN #8.5 gm 10/24/18 aerosol inhaler blood sugar diagnostic #200 strip 10/24/18 lancets 33 gauge #200 ea 10/24/18 pravastatin 40 mg tablet 40 mg PO DAILY #90 tab-cap 10/24/18 mupirocin calcium 2 % topical cream 1 applic TP TID #15 gm 02/27/19 nystatin 100,000 unit/gram topical 1 applic TOPICAL BID PRN #60 gm 03/04/19 powder insulin degludec 100 unit/mL (3 65 - 70 unit SC DAILY #30 ml 03/25/19 mL) subcutaneous pen insulin lispro 100 unit/mL 10 unit SC QAC #15 ml 03/25/19 subcutaneous pen loratadine 10 mg tablet 10 mg PO DAILY #90 tab-cap 03/25/19 zolpidem 10 mg tablet 10 mg PO HS #90 tab 04/30/19 tramadol 50 mg tablet 50 mg PO Q8H #90 tab MDD 150 08/02/19 penicillin V potassium 500 mg PO TID #30 tab 08/18/19 Allergies Allergy/AdvReac Type Severity Reaction Status Date / Time divalproex sodium AdvReac Intermediate MENTAL, Verified 08/18/19 12:50 [From Depakote] PHYSICAL REACTIONS lithium AdvReac Intermediate MENTAL, Verified 08/18/19 12:50 PHYSICAL REACTIONS simvastatin AdvReac Mild MYALGIAS Verified 08/18/19 12:50 thioridazine AdvReac Mild PSYCHOTIC Verified 08/18/19 12:50 adhesive tape AdvReac Verified 08/18/19 12:50 General Stated Complaint: Sorethroat NEGRITO: 4 Review of Systems All systems reviewed & are unremarkable except as noted in HPI and below Constitutional Constitutional: Reports chills, Denies fatigue, Denies fever(s), Reports headache(s) and Denies malaise ENT Ears, Nose, Mouth, and Throat: Denies otalgia, Reports headache(s), Denies nasal congestion, Denies sinus pain, Denies sinus pressure and Reports sore throat Respiratory Respiratory: Reports cough, Denies pain on inspiration and Denies pain with cough Gastrointestinal Gastrointestinal: Denies abdominal pain, Denies diarrhea, Denies nausea and Denies vomiting Neurologic Neurologic: Reports headache(s) Endocrine Endocrine: Denies fatigue FOR[facility]LY [facility], [facility] Medical History Acute tonsillitis (Acute) Bipolar disorder (Chronic) Doing well off risperadone. Will leave her off and continue Prozac. Calcific tendinitis of right shoulder (Acute) Chronic pain syndrome (Chronic) 07/03/17 CONTROLLED SUBSTANCE AGREEMENT (TRAMADOL) Depression (Chronic 03/16/17) Diabetes mellitus (Chronic 10/02/12) Diabetes type 2, controlled (Chronic) Gastroesophageal reflux disease (Chronic) + EGD for inflammation (11/27) Hyperlipidemia (Chronic 10/02/12) Due for recheck of Lipids and A1C along with CBC/CMP... Insomnia (Chronic) Internal derangement of left knee (Acute) Follow up with Dr. Lawrence Migraine (Chronic) Neck pain (Chronic 08/12/14) muscle spasm 2013 functional [facility] at [facility] Obesity (Acute) Posterior vitreous detachment of left eye (Acute 08/16/16) [facility]- VITREOUS CELLS AND CHOROIDAL LESIONS IN BOTH EYES. 08/16/16 Primary fibromyalgia syndrome (Chronic) fibromyalgia Retinopathy (Chronic 12/01/16) 11/18/16 [facility]-MILD 10/15/18 [facility] Undifferentiated inflammatory arthritis (Chronic) Vitamin B12 deficiency (Resolved 05/29/14) resolved on po B12 Surgical History (Updated 12/14/18 @ 13:00 by Miky Ochoa) Hysterectomy, Laproscopic (~01/2011) AT [facility]/STILL HAS OVARIES Open Carpal Tunnel release (~2000) right Status post excisional biopsy (Resolved 04/16/18) dr hdz (in office) - granuloma around foreign object (glass) Social History Smoking/Tobacco Use Status: Former Tobacco Use Alcohol Intake: never Drug use: Never Substance use type: does not use Household members: other Details: ADAM LOCKETT 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 Well hydrated. Alert and oriented. HENMT: Head nomocephalic, normal to inspection. Atraumatic. Hearing grossly normal. Pharyngeal erythema present with mild tonsillar exudates present. No evidence of peritonsillar abscess. Mildly dry mucous membranes. EYES: General normal appearance. Alignment normal. Eyelids normal. Conjunctiva normal. NECK: Normal visual inspection. FROM. Trachea midline. No Midline tenderness. Cervical lymphadenopathy present bilaterally CHEST: Normal insepection of the chest. RESP: Normal respiratory effort. Speaking full sentences. No cough. No audible wheezing. No retractions. Breath sounds are clear, full and equal bilaterally. No wheezing, rhonchi or rales CARDIO: No JVD. No murmur. Regular rate and rhythm GI: Bowel sounds present in all 4 quadrants, abdomen is soft. Left upper quadrant tenderness with palpation. No peritoneal signs, rebound or guarding. Course Vital Signs Vital signs: Vital Signs Temperature 36.6 C 08/18/19 12:44 Pulse 97 H 08/18/19 12:44 Respiratory Rate 18 08/18/19 12:44 Blood Pressure 125/99 H 08/18/19 12:44 Pulse Oximetry 97 08/18/19 12:44 Temperature 36.6 C 08/18/19 12:44 Temperature Source Skin 08/18/19 12:44 Pulse 97 H 08/18/19 12:44 Respiratory Rate 18 08/18/19 12:44 Respiratory Effort 08/18/19 12:48 Blood Pressure 125/99 H 08/18/19 12:44 Blood Pressure Position Sitting 08/18/19 12:44 Pulse Oximetry 97 08/18/19 12:44 Oxygen Delivery Method Room Air 08/18/19 12:44 Oxygen Flow Rate 0 08/18/19 12:44 Pain Level 2 08/18/19 12:44 Lab/Test Results Lab/Test Results: Laboratory Tests Range/Units 08/18/19 08/18/19 13:55 13:55 WBC (4.4-10.8) k/cumm 8.97 RBC (4.00-5.20) m/cumm 5.53 H Hgb (12.0-15.5) g/dL 16.3 H Hct (36.0-46.0) % 47.1 H MCV (80-95) fL 85.2 MCH (27.0-33.0) pg 29.5 MCHC (32.0-36.0) g/dL 34.6 RDW (11.7-14.6) % 13.7 Plt Count (130-400) x1000/uL 200 MPV (8.0-11.0) fL 10.2 Immature Gran % % 0.3 Neutrophils % 57.2 Lymphocytes % 32.6 Monocytes % 7.9 Eosinophils % 1.4 Basophils % 0.6 Absolute Neutrophils (1.2-6.7) k/cumm 5.13 Absolute Lymphocytes (1.2-3.4) k/cumm 2.92 Absolute Monocytes (0.11-0.7) k/cumm 0.71 H Absolute Eosinophils (0.0-0.7) k/cumm 0.13 Absolute Basophils (0.0-0.2) k/cumm 0.05 Monoscreen (Negative) Negative POC Strep Test-ZOEY(Rapid) Start: 08/18/19 14:20 Freq: .Rapid Strep Test Status: Active Protocol: Document 08/18/19 14:45 MM (Rec: 08/18/19 14:56 MM ER10) Strep test-ZOEY(Rapid)-POC POC-Strep test-ZOEY (Rapid) Positive POC-Strep test-ZOEY (Rapid) Positive
== END 2019-08-18 16:00 | disposition home or self-care (01) ==
PROVIDERS: Emergency Provider Physician Assistant; PCP Internal Medicine
DX: J02.0 Streptococcal pharyngitis (principal); E86.0 Dehydration; E11.9 Type 2 diabetes mellitus without complications
CPT/HCPCS: 36415; 87880; 96360; 99283; 85025; 86308

== ENCOUNTER 2019-09-02 08:59 | Outpatient (CLI) | payer OTHER, MEDICAID, SELFPAY ==
[2019-09-02 12:06] LABS: Hemoglobin A1C 6.2 % (3.8-5.6)
== END 2019-09-02 09:19 ==
PROVIDERS: PCP Internal Medicine; Visit Provider Internal Medicine
DX: E11.9 Type 2 diabetes mellitus without complications (principal)
CPT/HCPCS: 36415; 83036

== ENCOUNTER 2019-09-02 13:10 | Outpatient (REF) | payer OTHER, MEDICAID, SELFPAY | END 2019-09-02 13:30 | LOC: LBN 13:10 | PROVIDERS: PCP Internal Medicine; Visit Provider Internal Medicine | DX: J03.01 Acute recurrent streptococcal tonsillitis (principal) | CPT/HCPCS: 87070 ==

== ENCOUNTER → 2019-11-15 13:28 | Outpatient (BNVA) | payer OTHER, MEDICAID, SELFPAY | PROVIDERS: PCP Family Medicine; Referring Provider Family Medicine; Visit Provider Surgery | DX: K21.9 Gastro-esophageal reflux disease without esophagitis (principal); J02.9 Acute pharyngitis, unspecified; E11.9 Type 2 diabetes mellitus without complications; Z79.4 Long term (current) use of insulin | CPT/HCPCS: 99213; 99214 ==

== ENCOUNTER 2019-11-22 01:46 | Outpatient (CLI) | payer OTHER, MEDICAID, SELFPAY ==
[2019-11-22 13:02] LABS: Abs Immature Grans 0.01 k/cumm (0.0-0.09); Absolute Basophil Count 0.01 k/cumm (0.0-0.2); Absolute Eosinophil Count 0.01 k/cumm (0.0-0.7); Absolute Lymphocyte Count 1.33 k/cumm (1.2-3.4); Absolute Monocyte Count 0.21 k/cumm (0.11-0.7); Absolute Neutrophil Count 4.59 k/cumm (1.2-6.7); Basophils % 0.2; Eosinophils % 0.2; HCT 45.6 % (36.0-46.0); HGB 15.7 g/dL (12.0-15.5); Immature Grans % 0.2 %; Lymphocytes % 21.6; Mean Corp. HGB Concentration 34.4 g/dL (32.0-36.0); Mean Corpuscular Hemoglobin 29.6 pg (27.0-33.0); Mean Platelet Volume 10.5 fL (8.0-11.0); Monocytes % 3.4; Neutrophils % 74.4; Platelet Count 239 x1000/uL (130-400); RBC Distribution Width 13.6 % (11.7-14.6); White Blood Cell Count 6.16 k/cumm (4.4-10.8)
[2019-11-22 13:50] LABS: ALT 97 U/L (14-59); AST 40 U/L (15-37); Albumin 3.9 g/dL (3.4-5.0); Alkaline Phosphatase 70 U/L (46-116); Anion Gap 4.9 mmol/L (3-11); BUN 20 mg/dL (7-18); Bilirubin, Total 0.5 mg/dL (0.2-1.0); CO2 29.1 mmol/L (21.0-32.0); CREATININE 0.98 mg/dL (0.55-1.02); Calcium 9.3 mg/dL (8.5-10.1); Chloride 105 mmol/L (98-107); Estimated GFR 59.14 (mL/min/1.73m2); Glucose 141 mg/dL (74-106); Potassium 4.1 mmol/L (3.5-5.1); Sodium 139 mmol/L (136-145); Total Protein 7.8 g/dL (6.4-8.2)
[2019-11-23 12:33] LABS: COVID-19 RT-PCR UVMMC Result Negative (Negative)
== END 2019-11-22 02:06 ==
PROVIDERS: Surgery; PCP Family Medicine; Visit Provider Student in an Organized Health Care Education/Training Program
DX: H30.90 Unspecified chorioretinal inflammation, unspecified eye (principal); Z01.818 Encounter for other preprocedural examination; Z11.59 Encounter for screening for other viral diseases
CPT/HCPCS: 36415; 80053; U0003; 85025

== ENCOUNTER 2019-11-25 07:51 | Day surgery (SDC) | payer OTHER, MEDICAID, SELFPAY ==
--- NOTE | 2019-11-25 06:36 | ENDO_ITS ---
Date of service: 11/25/19 Time of Service: 09:25 Endoscopy Report DATE OF PROCEDURE: 11/25/19 PRE-OP DIAGNOSIS: Dysphagia, hoarsness and sore throat POST-OP DIAGNOSIS: same (reflux) PROCEDURE: EGD with biopsies SURGEON: Fina Mathew ANESTHESIA: other (General/ ASA 3/ luanne Mathew, CITLALLI) ESTIMATED BLOOD LOSS: 3 PATHOLOGY: other (Distal esophagus) COMPLICATIONS: None DISPOSITION: same day INDICATIONS: 54 year old female with hx of GERD on high dose Nexium for years who has had 1 year of recurrent sore throat treated with antibiotics for tonsilitis. She has some relief while on antibiotics and then symptoms recur. Al so complains of hoarsness and dysphagia. Risks, benefits and complications have been reviewed. Complications include but are not limited to bleeding, pain, perforation, sore throat, aspiration, and adverse reaction to the medications. Questions were entertained and answered to their satisfaction and they wished to proceed. No guarantees were given or implied. FINDINGS: evidence of mild reflux in the esophagus PROCEDURE DESCRIPTION: After informed consent was obtained the patient was take to the procedure room and placed in a supine position. Monitors were applied and a time out was done. The patients name, date of , procedure type, allergies to medications and metal in their body was reviewed. A bite block was placed and the patient was sedated. Once sedated and comfortable the gastroscope was advanced through the oropharynx which was grossly normal into the esophagus. Vocal cords were noted to be normal. The proximal and mid-esophagus were normal. In the distal esophagus there was mild inflammation noted and evidence of reflux noted. The scope was advanced into the stomach and through the pylorus into the 3rd portion of the duodenum. The duodenum was noted to be normal. The scope was retracted back into the stomach. There was no inflammation and no ulcers. The scope was retro-flexed. The cardia and fundus were noted to be normal. There was no hiatal hernia noted. The scope was retracted back into the esophagus and biopsies were done of the GE junction to rule out Bermudez's. The Z line was irregular. The GE junction was at 35 cm. The scope was removed and the patient was woken up and taken back to [facility] in stable condition. Follow up: with PCP. Recommend ENT referral. EGD was non-diagnostic for the patients symptoms.
--- NOTE | 2019-11-25 06:38 | W.PM.DSUDISC ---
Discharge Plan Disposition Patient Disposition: HOME Condition: Good Discharge Details Reason For Visit: Hoarsness, dysphagia and sore throat Attending Provider: Fina Mathew Primary Care Provider: Louie Lao Home Meds and New Rx's Prescriptions: Continued prednisone 20 mg tablet 40 mg PO DAILY Qty: 10 RF: 0 Restasis 0.05 % dropperette 1 drp OP Q12H RF: 0 (DME) Fritz Aerosol [place] Enhancer spacer See Dose Instructions .ROUTE .MEDSUPPLY Qty: 1 RF: 0 ipratropium bromide 42 mcg (0.06 %) spray,non-aerosol 2 spray ELVER TID PRNRF: 0 nystatin 100,000 unit/gram powder 1 applic Topical BID PRN Qty: 60 RF: 3 diclofenac sodium 1 % gel 2 gm TP QID PRN (Reason: pain) Qty: 100 RF: 3 zolpidem 10 mg tablet 10 mg PO HS Qty: 90 RF: 2 albuterol sulfate [ProAir HFA] 90 mcg/actuation HFA aerosol inhaler 2 puff Inhalation Q4H PRN Qty: 8.5 RF: 5 (DME) blood sugar diagnostic Strip 1 ea Miscellaneous TID Qty: 200 RF: 4 Jardiance 25 mg tablet 25 mg PO DAILY Qty: 90 RF: 4 fluticasone propionate 50 mcg/actuation spray,suspension 1 spray NS DAILY PRN (Reason: nasal congestion) Qty: 1 RF: 3 gabapentin 600 mg tablet 600 mg PO TID Qty: 300 RF: 3 (DME) lancets [OneTouch Delica Lancets] 33 gauge misc 1 ea Miscellaneous TID Qty: 200 RF: 4 pravastatin 40 mg tablet 40 mg PO DAILY Qty: 90 RF: 3 triamcinolone acetonide 0.5 % cream 1 applic Topical BID Qty: 15 RF: 2 tramadol 50 mg tablet 50 mg PO Q8H MDD 150 Qty: 90 RF: 0 multivitamin [Multi-Day] 1 EACH tablet 1 ea PO DAILY RF: 0 ascorbic acid (vitamin C) [Vitamin C] 500 MG tablet 500 mg PO BID RF: 0 Menopause Support 20 MG tablet 20 mg PO BID RF: 0 cyanocobalamin (vitamin B-12) [Vitamin B-12] 1,000 MCG tablet 5,000 mcg PO DAILY RF: 0 primrose 1 cap PO DAILY RF: 0 cholecalciferol (vitamin D3) 1,000 UNIT tablet 1,000 unit PO DAILY RF: 0 (DME) blood-glucose meter [Crimson HexagonTouch Ultra2 Meter] 1 EACH kit 1 ea Miscellaneous DAILY Qty: 1 RF: 1 Potassium Chloride 20 MEQ tablet 20 meq PO BID Qty: 30 RF: 2 (DME) pen needle, diabetic [Unifine Pentips] 31 gauge x 3/16 needle 1 ea Sub-Q AC & HS Qty: 450 RF: 3 mupirocin calcium 2 % cream 1 applic TP TID Qty: 15 RF: 1 Tresiba FlexTouch U-100 100 unit/mL (3 mL) insulin pen 65 - 70 unit SC DAILY Qty: 30 RF: 12 insulin lispro [Humalog KwikPen Insulin] 100 unit/mL insulin pen 10 unit SC QAC Qty: 15 RF: 12 loratadine [Claritin] 10 mg tablet 10 mg PO DAILY Qty: 90 RF: 3 furosemide 20 mg tablet 20 mg PO DAILY Qty: 90 RF: 2 esomeprazole magnesium [Nexium] 40 mg capsule,delayed release(DR/EC) 40 mg PO BID Qty: 180 RF: 4 fluconazole [Diflucan] 150 mg tablet 150 mg PO Q3D 0 Days Qty: 2 RF: 0 acetaminophen [Tylenol Extra Strength] 500 MG tablet 2 tab PO Q6H PRN PRNQty: 0 RF: 0 leflunomide 10 mg tablet 10 mg PO DAILY RF: 0 diclofenac potassium 50 mg tablet 50 mg PO DAILY RF: 0 Remicade 100 mg Recon Soln IV RF: 0 Discharge Instructions Instructions: Gastroesophageal Reflux Disease (DC) Additional Instructions: Findings: evidence of reflux Normal stomach and normal small bowel Follow up: with your PCP Continue antacids Please call if you develop: fevers >101.5 Nausea or Vomiting Abdominal pain that is not transient DAY SURGERY UNIT POST ENDOSCOPY INSTRUCTIONS 1. Because there will be medication in your system for the next 24 hours, you may feel a little sleepy. Your coordination will be affected. Therefore: a. Do not drive or operate dangerous equipment for 24 hours. b. Do not drink alcohol beverages for 24 hours (not even beer). c. Plan to go home and rest for the day. 2. Generally there are no restrictions on your activity after a day or so has gone by, but you may feel a bit fatigued for a few days. 3 After you arrive home you may have a light meal and return to a normal diet as you can tolerate it without feeling sick to your stomach. 4. After surgery, you may feel pain or discomfort. This should be only transient, but if it persists please contact your doctor. 5. If there are any questions regarding the findings of your procedure, please feel free to contact your doctor. 6. If you are unable to contact your doctor with a problem, contact the hospital at [phone]. 7. Continue all your regular medications unless directed otherwise. I understand the above instructions and have no questions. Signature of Patient or Responsible Adult Escort Date/Time Name of Responsible Adult Escort Signature of Nurse Date/Time Activity:: Activity as Tolerated Diet:: As Tolerated Discharge Orders Discharge Orders: Discharge Order (Routine); Ordered 11/25/19 Ordered By: Fina Mathew DS: Diagnosis Discharge Diagnosis (1) Dysphagia: Status: Acute (2) Hoarseness: Status: Acute (3) Sore throat: Status: Acute
[2019-11-25 08:08] VITALS: BP 110/80; PULSE 89; RESP 20; TEMP 37.2; O2SAT 97
[2019-11-25] MEDS: Lactated Ringers 1,000 ML 80 ML IV (08:39)
--- NOTE | 2019-11-25 09:17 | ESO_PTH ---
PATIENT: Trini Sierra LOC: [facility] U#:[id number] AGE/SX: 54/F ROOM: RE11/25/[address]: Fina Mathew MD : [id number] BED: DIS: 11/25/2019 SPEC #: [id number] RECD: 11/25/19 14:32 STATUS: ABDI REMalachi #: [id number] JAMES: 11/25/19 09:[address]: Fina Mathew DEPT: Surgical Specimen RECD BY: Gale Natarajan ENTERED: 11/25/19 14:33 SP TYPE: Eso JEFF DR: Louie Lao MD Tissues: 1 - ESOPHAGUS BIOPSY Procedures: GROSS AND MICRO LEVEL 4 Comments: [id number]
[2019-11-25 10:00] VITALS: BP 104/62; PULSE 72; RESP 16; TEMP 36.3; O2SAT 97
== END 2019-11-25 10:26 | disposition home or self-care (01) ==
LOC: SUR 07:52
PROVIDERS: PCP Family Medicine; Visit Provider Surgery
PROC: 0DJ68ZZ Inspection of Stomach, Via Natural or Artificial Opening Endoscopic (ICD-10-PCS; CPT 43235; principal; 2019-11-25 08:45)
DX: R13.10 Dysphagia, unspecified (principal); R49.0 Dysphonia; J02.9 Acute pharyngitis, unspecified
CPT/HCPCS: 43239; 88305; J2001

== ENCOUNTER 2019-12-19 01:11 | Outpatient (CLI) | payer OTHER, MEDICAID, SELFPAY ==
--- NOTE | 2019-12-19 10:45 | DI.RAD_ITS ---
EXAM: XR CHEST 2V PA LATERAL CLINICAL HISTORY: exertional dyspnea/autoimmune arthritis, R06.00 TECHNIQUE: 2D digital imaging was performed. COMPARISON: CR RIGHT SHOULDER COMPLETE from 11/01/2017 FINDINGS: The heart is not enlarged. The lungs are clear and well expanded. No pleural effusion seen. Mediastin al contours appear intact. IMPRESSION: Normal chest
== END 2019-12-19 01:31 ==
PROVIDERS: PCP Family Medicine; Visit Provider Family Medicine
DX: R06.09 Other forms of dyspnea (principal)
CPT/HCPCS: 71046

== ENCOUNTER 2019-12-23 08:59 | Outpatient (CLI) | payer OTHER, MEDICAID, SELFPAY ==
[2019-12-23 23:24] LABS: COVID-19 RT-PCR UVMMC Result Negative (Negative)
== END 2019-12-23 09:19 ==
PROVIDERS: PCP Family Medicine; Visit Provider Family Medicine
DX: Z03.818 Encounter for observation for suspected exposure to other biological agents ruled out (principal)
CPT/HCPCS: U0003

== ENCOUNTER 2019-12-25 04:37 | Outpatient (CLI) | payer OTHER, MEDICAID, SELFPAY ==
--- NOTE | 2019-12-30 08:42 | W.PFT ---
Date of service: 12/25/19 Time of Service: 10:05 Pulmonary Function Test Result Interpretation Spirometry: Spirometry shows no evidence of obstructive airways disease, no bronchodilator response Lung Volumes: Not done Diffusion Capacity: Not done Airway Pressure: Not done Impression Normal spirometry. Clinical correlation recommended Clinical Correlation therefore is recommended.
== END 2019-12-25 04:57 ==
PROVIDERS: PCP Family Medicine; Visit Provider Family Medicine
DX: R06.09 Other forms of dyspnea (principal)
CPT/HCPCS: 94060

== ENCOUNTER 2019-12-27 00:41 | Outpatient (CLI) | payer OTHER, MEDICAID, SELFPAY ==
--- NOTE | 2019-12-27 09:13 | DI.MAMMO_ITS ---
EXAM: MG MAMMO SCREENING CLINICAL HISTORY: screening, Z12.39 TECHNIQUE: Bilateral full field digital CC and MLO mammographic images were obtained with 3D tomosyn thesis and utilizing computer aided detection (CAD). COMPARISON: Available for comparison. FINDINGS: Masses/Architectural Distortion: None seen. Microcalcifications: No suspicious pleomorphic-type are seen. Skin Thickening/Nipple Retraction: None. IMPRESSION: 1. No significant interval change with no specific features of malignancy noted. 2. Unless there is more urgent need, screening mammography is recommended, as per [employer] guidelines. BI-RADS Category 1 - Negative Breast Density - Category A - Almost entirely fatty A negative radiographic report should not delay biopsy if a dominant or clinically suspicious mass is present. Up to ten percent of cancers are not identified on mammography. A negative report may reinforce clinical impression. Adenosis and dense breasts may obscure an underlying neoplasm. False positive reports average 6 to 10%. Patient will receive a letter notifying them of these results.
== END 2019-12-27 01:01 ==
PROVIDERS: PCP Family Medicine; Visit Provider Internal Medicine
DX: Z12.31 Encounter for screening mammogram for malignant neoplasm of breast (principal)
CPT/HCPCS: 77063; 77067

== ENCOUNTER 2020-03-05 03:03 | Outpatient (CLI) | payer OTHER, MEDICAID, SELFPAY ==
[2020-03-05 14:51] LABS: Abs Immature Grans 0.01 10^3/uL (0.0-0.06); Absolute Basophil Count 0.05 10^3/uL (0.0-0.2); Absolute Eosinophil Count 0.24 10^3/uL (0.0-0.7); Absolute Lymphocyte Count 1.97 10^3/uL (1.2-3.4); Absolute Neutrophil Count 4.35 10^3/uL (1.2-6.7); Basophils % 0.7; Eosinophils % 3.4; HCT 48.7 % (36.0-46.0); HGB 16.6 g/dL (11.2-15.7); Immature Grans % 0.1; Lymphocytes % 27.7; MCH 29.2 pg (27.0-33.0); MCHC 34.1 % (32.0-36.0); MCV 85.7 fL (80-95); Neutrophils % 61.1; Nucleated RBC 0 %; Platelet Count 214 10^3/uL (130-400); RBC 5.68 10^6/uL (3.93-5.22); RDW 13.3 % (11.7-14.6); RDW-SD 41.3 fL; WBC 7.12 10^3/uL (4.4-10.8)
[2020-03-05 15:32] LABS: ESR 22 mm/hr (0-30)
[2020-03-05 17:59] LABS: ALT 118 U/L (14-59); AST 74 U/L (15-37); Albumin 3.6 g/dL (3.4-5.0); Alkaline Phosphatase 81 U/L (46-116); Anion Gap 8.6 mmol/L (3-11); BUN 13 mg/dL (7-18); Bilirubin, Total 0.5 mg/dL (0.2-1.0); CO2 27.4 mmol/L (21.0-32.0); CREATININE 0.99 mg/dL (0.55-1.02); Calcium 9.3 mg/dL (8.5-10.1); Chloride 103 mmol/L (98-107); Estimated GFR 58.45 (mL/min/1.73m2); Glucose 162 mg/dL (74-106); Potassium 3.8 mmol/L (3.5-5.1); Sodium 139 mmol/L (136-145)
[2020-03-05 18:22] LABS: C-Reactive Protein 0.41 mg/dL (0.0-0.3)
== END 2020-03-05 03:23 ==
PROVIDERS: Nurse Practitioner; PCP Family Medicine; Visit Provider Internal Medicine Rheumatology
DX: M13.80 Other specified arthritis, unspecified site (principal); M19.90 Unspecified osteoarthritis, unspecified site; H30.90 Unspecified chorioretinal inflammation, unspecified eye
CPT/HCPCS: 36415; 80053; 85652; 85025; 86140

== ENCOUNTER 2020-04-24 03:57 | Outpatient (RCR) | payer OTHER, MEDICAID, SELFPAY ==
[2020-04-24] VITALS (7 sets, daily range): BP systolic 106–119; BP diastolic 70–82; PULSE 84–91; RESP 16–18; TEMP 36.6–37; O2SAT 91–94
[2020-04-24] MEDS: diphenhydrAMINE 25 MG CAP PO (08:53)
[2020-04-24] MEDS: Acetaminophen 325 MG TAB 650 MG PO (08:53)
[2020-04-24] MEDS: methylPREDNISolone SUCC 125 MG VIAL 50 MG IVP (08:54)
[2020-04-24] MEDS: Normal Saline Flush 10 ML SYR IVP (08:55)
== END 2020-04-25 23:59 | disposition home or self-care (01) ==
LOC: INF 03:57
PROVIDERS: PCP Family Medicine; Visit Provider Nurse Practitioner Family
DX: M06.0A Rheumatoid arthritis without rheumatoid factor, other specified site (principal)
CPT/HCPCS: 96365; 96366; J1745; J2930

== ENCOUNTER 2020-05-02 01:43 | Emergency (ER) | payer OTHER, MEDICAID, SELFPAY ==
--- NOTE | 2020-05-02 01:45 | RT.EKG_ITS ---
APPROVED REPORT Exam: Resting ECG Patient Location: E HR:108 bpm ECG Measurements Heart Rate 108 AXIS NJ 166 P 46 QRSd 74 QRS 38 QT 337 T 19 QTc 454 Conclusion Sinus tachycardia...rate> 99 Physician: Rate 108, sinus tachycardia, no significant ST elevations or depressions, small Q-wave not ed in lead III, no evidence of STEMI.
[2020-05-02 01:46] VITALS: BP 117/73; PULSE 136; RESP 16; TEMP 36.8; O2SAT 95
--- NOTE | 2020-05-02 01:58 | ED.GENADUL_ITS ---
Discharge Plan Disposition Patient Disposition: HOME Condition: Good Discharge Details Clinical Impression: Neuropathic pain, Neck pain Primary Care Provider: Louie Lao ED Provider: James Wood Home Meds and New Rx's Prescriptions: Continued Restasis 0.05 % dropperette 1 drp OP Q12H RF: 0 (DME) Fritz Aerosol Hunt Enhancer spacer See Dose Instructions .ROUTE .MEDSUPPLY Qty: 1 RF: 0 ipratropium bromide 42 mcg (0.06 %) spray,non-aerosol 2 spray ELVER TID PRNRF: 0 diclofenac sodium 1 % gel 2 gm TP QID PRN (Reason: pain) Qty: 100 RF: 3 albuterol sulfate [ProAir HFA] 90 mcg/actuation HFA aerosol inhaler 2 puff Inhalation Q4H PRN Qty: 8.5 RF: 5 (DME) blood sugar diagnostic Strip 1 ea Miscellaneous TID Qty: 200 RF: 4 Jardiance 25 mg tablet 25 mg PO DAILY Qty: 90 RF: 4 fluticasone propionate 50 mcg/actuation spray,suspension 1 spray NS DAILY PRN (Reason: nasal congestion) Qty: 1 RF: 3 gabapentin 600 mg tablet 600 mg PO TID Qty: 300 RF: 3 (DME) lancets [[employer] DelDoppelganger Lancets] 33 gauge misc 1 ea Miscellaneous TID Qty: 200 RF: 4 pravastatin 40 mg tablet 40 mg PO DAILY Qty: 90 RF: 3 triamcinolone acetonide 0.5 % cream 1 applic Topical BID Qty: 15 RF: 2 multivitamin [Multi-Day] 1 EACH tablet 1 ea PO DAILY RF: 0 ascorbic acid (vitamin C) [Vitamin C] 500 MG tablet 500 mg PO BID RF: 0 Menopause Support 20 MG tablet 20 mg PO BID RF: 0 cyanocobalamin (vitamin B-12) [Vitamin B-12] 1,000 MCG tablet 5,000 mcg PO DAILY RF: 0 primrose 1 cap PO DAILY RF: 0 cholecalciferol (vitamin D3) 1,000 UNIT tablet 1,000 unit PO DAILY RF: 0 (DME) blood-glucose meter [[employer] Ultra2 Meter] 1 EACH kit 1 ea Miscellaneous DAILY Qty: 1 RF: 1 Potassium Chloride 20 MEQ tablet 20 meq PO BID Qty: 30 RF: 2 (DME) pen needle, diabetic [Unifine Pentips] 31 gauge x 3/16 needle 1 ea Sub-Q AC & HS Qty: 450 RF: 3 mupirocin calcium 2 % cream 1 applic TP TID Qty: 15 RF: 1 insulin lispro [Humalog KwikPen Insulin] 100 unit/mL insulin pen 10 unit SC QAC Qty: 15 RF: 12 loratadine [Claritin] 10 mg tablet 10 mg PO DAILY Qty: 90 RF: 3 furosemide 20 mg tablet 20 mg PO DAILY Qty: 90 RF: 2 esomeprazole magnesium [Nexium] 40 mg capsule,delayed release(DR/EC) 40 mg PO BID Qty: 180 RF: 4 zolpidem 10 mg tablet 10 mg PO QHS PRN (Reason: insomnia) Qty: 30 RF: 5 tramadol 50 mg tablet 50 mg PO Q8H MDD 150 Qty: 90 RF: 0 acetaminophen [Tylenol Extra Strength] 500 MG tablet 2 tab PO Q6H PRN PRNQty: 0 RF: 0 leflunomide 10 mg tablet 10 mg PO DAILY RF: 0 Remicade 100 mg Recon Soln IV RF: 0 black cohosh 50 mg Capsule PO DAILY RF: 0 Tresiba FlexTouch U-100 100 unit/mL (3 mL) insulin pen 70 unit SC DAILY RF: 0 Discharge Instructions Instructions: Neck Pain (ED) Additional Instructions: At this time the CT scan of your neck does not show any signs of fractures or significant abnormality. Your laboratory work-up is reassuring and unremarkable. At this time I am concerned that your symptoms are combination of your unique arthritis in conjunction with nerve pain likely secondary to the chronic irritation to the peripheral nerves as they come out of your cervical spine. At this time I would recommend that you continue taking her gabapentin and tramadol. Please use ice as needed on your joints where there is pain. Please avoid any significant vigorous activity. Please follow-up closely with your survival specialist and your thermoscrew operator. If you notice any worsening of your symptoms, or any new symptoms such as vomiting, diarrhea, fever, chills, shortness of breath, chest pain, numbness, weakness, or fainting , please return immediately to the emergency department for reevaluation. Please follow up with your primary care provider as soon as possible for reassessment and reevaluation. As always, it was a pleasure participating in your medical care today. Referrals: Louie Lao [Primary Care Provider] - Medical Decision Making 54-year-old female with a past medical history of diabetes, primary fibromyalgia syndrome, undifferentiated inflammatory arthritis, previous cervical disc pathology with(per patient) surgery in 2013, bipolar type I, presents today for evaluation of bilateral arm and neck pain. Patient states that she was doing some lifting today, moving it daily but she did it safely and cautiously, there was no injury or straining at the time, and later this evening at about 5 PM she developed mild neck pain which she states that she has had before. However as the night went on at 630 she then subsequently developed bilateral arm and hand pain which has difficulty with movement. She does have good strength but pain is present regardless of movement or position. She describes it as a severe aching pain, like they are in a vice card lacer jacquard. She does take gabapentin chronically. She admits to some mild associated nausea which she states is classic when she gets pain, she denies any chest pain, chest heaviness, tightness or shortness of breath. She denies any history of cardiac disease. She has not taken anything for her symptoms. She has no other complaints at this time. Physical exam demonstrates mild midline tenderness at C6, but more so left paracervical tenderness at C6. Her neurologic exam is unremarkable, no evidence of weakness or neurologic deficit however she does have pain with movement but it seems to be less related to actual movement more related to what appears more so to be in neuropathic pain. She is able to hold her arms up, shows no focal weakness, no signs of central cord syndrome. With the patient's mild midline tenderness but greater paraspinal tenderness to the left I suspect the major cause of her symptomatology is muscle and peripheral nerve related, and not a central cord related. However because of her exam findings we will get a CT scan of the neck to evaluate for acute significant pathology. We will treat with morphine Toradol and Tylenol. We will give mild muscle relaxant. Will monitor closely and reassess. Additionally her differential is low for ACS but with her atypical arm pain I do feel that screening EKG and troponin are indicated. 3:[address] scan results have returned, no evidence of significant abnormality aside from mild to moderate degenerative disc disease and right and left osseous neural foraminal narrowing. Repeat exam demonstrates notable improvement of her symptoms, she can now move her arms well as well as her hands and wrists and e lbows without significant difficulty. She shows very mild residual achiness throughout, but otherwise minimal in comparison. The remainder of her work-up is otherwise unremarkable, no evidence of cardiac etiology, or distal acute fracture or osseous damage. Symptoms at this time I feel are consistent with neuropathic pain, possibly a component of reflex and pathetic dystrophy. But with no evidence of objective neurovascular abnormality do not see any indication for additional emergent imaging or work-up. With the patient's notable clinical improvement I do feel that she can go home, however I do recommend continued gabapentin and tramadol use at home which she already has, as well as close follow-up with her thermoscrew operator and survival specialist. I contacted her friend at her request, Anne, and discussed the case with her as well. Additionally the patient's potassium was slightly low at 3.1, she has been given 40 mEq of oral potassium, and I did discuss with her orally the importance of eating foods that are high in potassium. Of note patient's heart rate initially on my discussion with her at time of discharge was in the 90s.clinically the patient is afebrile and shows no clinical evidence of meningitis, infectious etiology, she has no white count bandemia or left shift, no other abnormality. I have extensively reviewed the treatment plan and discharge instructions with the patient. I have addressed all patient concerns at this time. The patient was made aware of what symptoms to monitor for that would warrant a return to the emergency department. Discussed the plan with the patient, they demonstrate verbal understanding and agreement with our assessment and plan at this time. EKG 2: 00 Rate 108, sinus tachycardia, no significant ST elevations or depressions, small Q-wave noted in lead III, no evidence of STEMI. FINDINGS: Brain: Normal volume for age. No hemorrhage. No significant white matter disease. No edema. Cerebral ventricles: No ventriculomegaly. Bones/joints: Unremarkable. No acute fracture. Paranasal sinuses: Visualized sinuses are unremarkable. No fluid levels. Mastoid air cells: No mastoid effusion. Soft tissues: No focal soft tissue abnormality. IMPRESSION: No acute intracranial abnormality FINDINGS: Bones/joints: No acute fracture, vertebral body heights are preserved. There is straightening with slight reversal of normal cervical lordosis, could be related to patient positioning or muscle spasm. No traumatic spondylolisthesis. There are mild scattered facet hypertrophic changes. Discs/Spinal canal/Neural foramina: There is moderate degenerative disc disease at C5-C6 with moderate intervertebral disc height loss and moderate right and mild left osseous neural foraminal narrowing. There are scattered mild degenerative disc changes at the other cervical levels. There is mild left osseous neural foraminal narrowing at C4-C5 related to uncovertebral hypertrophic changes and asymmetric facet hypertrophic changes. Osseous central canal is patent. Soft tissues: No focal abnormality. Trachea: At the level of the thoracic inlet there is likely tracheal diverticulum along the right posterolateral wall of the trachea. Thyroid: No mass. Lymph nodes: No pathologically sized nodes by CT size criteria. IMPRESSION: 1. No acute fracture. 2. Moderate degenerative disc disease at C5-C6 with moderate right and mild left osseous neural foraminal narrowing. Thank you for allowing us to participate in the care of your patient. Dictated and Authenticated by: Ino Grullon MD 05/02/2020 3:22 AM Eastern Time ([place] & [place]) HPI General Date/Time Provider Initiated Documentation: 05/02/20 01:45 . HPI Narrative: 54-year-old female with a past medical history of diabetes, primary fibromyalgia syndrome, undifferentiated inflammatory arthritis, previous cervical disc pathology with(per patient) surgery in 2014, bipolar type I, presents today for evaluation of bilateral arm and neck pain. Patient states that she was doing some lifting today, moving it daily but she did it safely and cautiously, there was no injury or straining at the time, and later this evening at about 5 PM she developed mild neck pain which she states that she has had before. However as the night went on at 630 she then subsequently developed bilateral arm and hand pain which has difficulty with movement. She does have good strength but pain is present regardless of movement or position. She describes it as a severe aching pain, like they are in a vice card lacer jacquard. She does take gabapentin chronically. She admits to some mild associated nausea which she states is classic when she gets pain, she denies any chest pain, chest h eaviness, tightness or shortness of breath. She denies any history of cardiac disease. She has not taken anything for her symptoms. She has no other complaints at this time. Related Data Home Medications Medication Instructions Recorded Confirmed Menopause Support 20 mg PO BID 09/29/12 05/02/20 ascorbic acid (vitamin C) [Vitamin 500 mg PO BID 09/29/12 05/02/20 C] multivitamin [Multi-Day] 1 ea PO DAILY 09/29/12 05/02/20 [place] 1 cap PO DAILY 05/29/14 05/02/20 cyanocobalamin (vitamin B-12) 5,000 mcg PO DAILY 05/29/14 05/02/20 [Vitamin B-12] cholecalciferol (vitamin D3) 1,000 unit PO DAILY 10/09/15 05/02/20 blood-glucose meter [OneTouch #1 kit 11/30/16 04/20/20 Ultra2 Meter] acetaminophen [Tylenol Extra 2 tab PO Q6H PRN PRN #0 tab-cap 04/22/17 05/02/20 Strength] inhalational spacing device #1 each 05/01/18 04/20/20 pen needle, diabetic 31 gauge x #450 each 08/28/18 04/20/2009/08 cyclosporine 0.05 % eye drops in a 1 drp OP Q12H 09/19/18 05/02/20 dropperette mupirocin calcium 2 % topical cream 1 applic TP TID #15 gm 02/27/19 05/02/20 ipratropium bromide 42 mcg (0.06 2 spray ELVER TID PRN ml 03/04/19 05/02/20 %) nasal spray insulin lispro 100 unit/mL 10 unit SC QAC #15 ml 03/25/19 05/02/20 subcutaneous pen loratadine 10 mg tablet 10 mg PO DAILY #90 tab-cap 03/25/19 05/02/20 Remicade IV 08/18/19 04/20/20 diclofenac sodium 1 % topical gel 2 gm TP QID PRN #100 gm 08/26/19 05/02/20 furosemide 20 mg tablet 20 mg PO DAILY #90 tab-cap 08/26/19 05/02/20 albuterol sulfate 90 mcg/actuation 2 puff INHALATION Q4H PRN #8.5 gm 09/30/19 05/02/20 aerosol inhaler blood sugar diagnostic #200 strip 09/30/19 04/20/20 empagliflozin 25 mg tablet 25 mg PO DAILY #90 cap 09/30/19 05/02/20 fluticasone propionate 50 1 spray NS DAILY PRN #1 bottle 09/30/19 05/02/20 mcg/actuation nasal spray,suspension gabapentin 600 mg tablet 600 mg PO TID #300 tab 09/30/19 05/02/20 lancets 33 gauge #200 ea 09/30/19 04/20/20 pravastatin 40 mg tablet 40 mg PO DAILY #90 tab-cap 09/30/19 05/02/20 triamcinolone acetonide 0.5 % 1 applic TOPICAL BID #15 gm 09/30/19 05/02/20 topical cream Nexium 40 mg capsule,delayed 40 mg PO BID #180 tab-cap NS 10/02/19 05/02/20 release leflunomide 10 mg PO DAILY 11/21/19 05/02/20 zolpidem 10 mg tablet 10 mg PO QHS PRN #30 tab 02/26/20 05/02/20 tramadol 50 mg tablet 50 mg PO Q8H #90 tab MDD 150 03/16/20 05/02/20 Tresiba FlexTouch U-100 70 unit SC DAILY 05/02/20 05/02/20 black cohosh mg PO DAILY 05/02/20 Previous Rx's Medication Instructions Recorded acetaminophen [Tylenol Extra 2 tab PO Q6H PRN PRN #0 tab-cap 04/22/17 Strength] inhalational spacing device #1 each 05/01/18 pen needle, diabetic 31 gauge x #450 each 08/28/1809/08 mupirocin calcium 2 % topical cream 1 applic TP TID #15 gm 02/27/19 insulin lispro 100 unit/mL 10 unit SC QAC #15 ml 03/25/19 subcutaneous pen loratadine 10 mg tablet 10 mg PO DAILY #90 tab-cap 03/25/19 diclofenac sodium 1 % topical gel 2 gm TP QID PRN #100 gm 08/26/19 furosemide 20 mg tablet 20 mg PO DAILY #90 tab-cap 08/26/19 albuterol sulfate 90 mcg/actuation 2 puff INHALATION Q4H PRN #8.5 gm 09/30/19 aerosol inhaler blood sugar diagnostic #200 strip 09/30/19 empagliflozin 25 mg tablet 25 mg PO DAILY #90 cap 09/30/19 fluticasone propionate 50 1 spray NS DAILY PRN #1 bottle 09/30/19 mcg/actuation nasal spray,suspension gabapentin 600 mg tablet 600 mg PO TID #300 tab 09/30/19 lancets 33 gauge #200 ea 09/30/19 pravastatin 40 mg tablet 40 mg PO DAILY #90 tab-cap 09/30/19 triamcinolone acetonide 0.5 % 1 applic TOPICAL BID #15 gm 09/30/19 topical cream Nexium 40 mg capsule,delayed 40 mg PO BID #180 tab-cap NS 10/02/19 release zolpidem 10 mg tablet 10 mg PO QHS PRN #30 tab 02/26/20 tramadol 50 mg tablet 50 mg PO Q8H #90 tab MDD 150 03/16/20 Allergies Allergy/AdvReac Type Severity Reaction Status Date / Time divalproex sodium AdvReac Intermediate MENTAL, Verified 12/14/19 12:41 [From Depakote] PHYSICAL REACTIONS lithium AdvReac Intermediate MENTAL, Verified 12/14/19 12:41 PHYSICAL REACTIONS methotrexate AdvReac Intermediate Rash Verified 12/14/19 12:41 simvastatin AdvReac Mild MYALGIAS Verified 12/14/19 12:41 thioridazine AdvReac Mild PSYCHOTIC Verified 12/14/19 12:41 adhesive tape AdvReac Verified 12/14/19 12:41 General NEGRITO: 4 Review of Systems All systems reviewed & are unremarkable except as noted in HPI and below PFSH Medical History Acute tonsillitis Amygdalolith Bipolar disorder Doing well off risperadone. Will leave her off and continue Prozac. Calcific tendinitis of right shoulder Chronic pain syndrome 07/03/17 CONTROLLED SUBSTANCE AGREEMENT (TRAMADOL) Depression (03/16/17) Diabetes mellitus (10/02/12) Diabetes type 2, controlled Dysphonia Exertional dyspnea Gastroesophageal reflux disease + EGD for inflammation (11/27) Hyperlipidemia (10/02/12) Due for recheck of Lipids and A1C along with CBC/CMP... Insomnia Internal derangement of left knee Follow up with Dr. Lawrence Migraine Neck pain (08/12/14) muscle spasm 2014 functional uatsdin program at [facility] Obesity Posterior vitreous detachment of left eye (08/16/16) [facility]- VITREOUS CELLS AND CHOROIDAL LESIONS IN BOTH EYES. 08/16/16 Primary fibromyalgia syndrome fibromyalgia Retinopathy (12/01/16) 11/18/16 [facility]-MILD 10/15/18 [facility]-kb Sleep apnea Undifferentiated inflammatory arthritis Vitamin B12 deficiency (05/29/14) resolved on po B12 Surgical History Hysterectomy, Laproscopic (~01/2011) AT [facility]/STILL HAS OVARIES Open Carpal Tunnel release (~2000) right Status post excisional biopsy (04/16/18) dr hdz (in office) - granuloma around foreign object (glass) Family History Mother Diabetes Hyperlipidemia Sister No problems noted. Brother Asthma Brother No problems noted. Brother No problems noted. Grandfather Heart disease Grandfather No problems noted. Grandmother Heart disease Grandmother No problems noted. Son Asthma Son Asthma Son No problems noted. 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 3.ENT: Atraumatic external nose and ears. Moist MM. Neck: Symmetric, trachea midline, No thyromegaly. 4.CVS: +S1/S2, No murmurs or gallops. Peripheral pulses 2+ and equal in all extremities. Brisk capillary refill in all extremities. 5.RESP: Unlabored respiratory effort. Clear to auscultation bilaterally. No wheezes rales or rhonchi 6.GI: Soft, Nontender/Nondistended, No hepatosplenomegaly. No guarding or rebound. 7.MSK: Normocephalic/Atraumatic, Extremities w/o deformity or ttp No cyanosis or clubbing, Normal movement of all extremities. No midline tenderness to palpation over the TLS spine. Minimal midline tenderness over C6, of her worsening pain more so over the left paraspinal region next to C6. Symptoms in the hands and arms are not worsened by cranial compression or movement of the head or neck. Normal ROM in flexion, extension, side bend, and rotation. Patient has +5 out of 5 strength in the lower extremities in dorsiflexion and plantarflexion, knee flexion and extension, hip flexion and extension. Normal strength for dorsiflexion and plantar flexion of the great toe bilaterally. There is +2 over 2 dorsalis pedis pulses bilaterally. There is normal sensation to the skin with light touch at the foot, knee, and hip. Good sensation over the deep sural nerve area bilaterally. Rectal exam deferred. +5 out of 5 strength in the medial, ulnar, radial nerve distribution bilaterally in the hands as well as intact light touch sensation to these dermatomes on the hands. Patient is able to abduct the arms to greater than 90 degrees, and is able to hold them in these positions. She is able to lift her arms over her head and hold them there. No evidence of focal weakness. There is subjective pain though with these movements that appears to be unrelated to palpation or movement. 8.Skin: Warm, Dry. No rashes or lesions. 9.Neuro: signal supervisor II-XII grossly intact. Sensation grossly intact, no focal neurologic deficits. Please see musculoskeletal 10.Psych: (AAO) x3. Appropriate mood and affect
[2020-05-02] MEDS: Acetaminophen 500 MG TAB 1000 MG PO (02:18)
[2020-05-02] MEDS: Ondansetron 4 MG/2 ML VIAL IVP (02:18)
[2020-05-02] MEDS: Ketorolac 30 MG/ML VIAL IVP (02:18)
[2020-05-02 02:28] VITALS: RESP 18
[2020-05-02 02:34] LABS: Abs Immature Grans 0.03 10^3/uL (0.0-0.06); Absolute Basophil Count 0.04 10^3/uL (0.0-0.2); Absolute Lymphocyte Count 1.73 10^3/uL (1.2-3.4); Absolute Monocyte Count 0.87 10^3/uL (0.1-0.8); Absolute Neutrophil Count 7.45 10^3/uL (1.2-6.7); Basophils % 0.4; HCT 45.8 % (36.0-46.0); HGB 15.6 g/dL (11.2-15.7); Immature Grans % 0.3; Lymphocytes % 16.9; MCH 29.1 pg (27.0-33.0); MCHC 34.1 % (32.0-36.0); MCV 85.3 fL (80-95); MPV 11.3 fL (8.0-11.0); Monocytes % 8.5; Neutrophils % 72.9; Nucleated RBC 0 %; Platelet Count 176 10^3/uL (130-400); RBC 5.37 10^6/uL (3.93-5.22); RDW 13.1 % (11.7-14.6); RDW-SD 40.2 fL; WBC 10.22 10^3/uL (4.4-10.8)
[2020-05-02 02:48] LABS: ALT 67 U/L (14-59); AST 29 U/L (15-37); Albumin 3.3 g/dL (3.4-5.0); Alkaline Phosphatase 77 U/L (46-116); Anion Gap 11.5 mmol/L (3-11); BUN 15 mg/dL (7-18); Bilirubin, Total 0.5 mg/dL (0.2-1.0); CO2 25.5 mmol/L (21.0-32.0); Chloride 102 mmol/L (98-107); Estimated GFR 51.76 (mL/min/1.73m2); Glucose 191 mg/dL (74-106); Potassium 3.1 mmol/L (3.5-5.1); Sodium 139 mmol/L (136-145); Total Protein 7.2 g/dL (6.4-8.2)
--- NOTE | 2020-05-02 02:49 | DI.CT_ITS ---
EXAM: CT HEAD CERVICAL SPINE WO COMPARISON: No exams were available for comparison FINDINGS: CT examination of the cervical spine was performed without contrast administration. There are moderate degenerative changes of the cervical spine and there is a mild cervical kyphosis. There is no evidence of acute cervical spine fracture or dislocation. Intervertebral disc spaces are well maintained. Tracheolaryngeal structures appear intact except for a probable tracheal diverticulum on the right at the level of the right lung apex measuring about 21 millimeters in greatest diameter.. No cervical mass or adenopathy. Noncontrast cranial CT was performed. Ventricular system is normal in appearance. No evidence of acute intracranial hemorrhage, mass effect, or midline shift. No calvarial fracture. The orbital and temporal bone structures appear intact. IMPRESSION: No evidence of acute cervical spine injury. No evidence of acute intracranial injury. RADIATION DOSE DELIVERED: 1,390.58mGy.cm Total DLP 1,390.58mGy.cm Total DLP DATA REPOSITORY: All CT scans at this facility are submitted to the National Radiology Data Registry (NRDR) Dose Index Registry (DIR) with the [employer] ([employer]). RADIATION OPTIMIZATION: All CT scans at this facility use at least one of these dose optimization te chniques: automated exposure control; mA and/or kV adjustment per patient size (includes targeted exa ms where dose is matched to clinical indication); or iterative reconstruction.
[2020-05-02 02:50] LABS: Troponin I < 0.05 ng/mL (<0.06)
[2020-05-02 03:06] LABS: Diff Comment Agrees w/ Instrument; RBC Morphology Normal
[2020-05-02] MEDS: Potassium Chloride 20 MEQ TABCR 40 MEQ PO (03:13)
--- NOTE | 2020-05-02 03:22 | DI.VRAD_ITS ---
PROCEDURE INFORMATION: Exam: CT Head Without Contrast Exam date and time: 05/02/2020 2:41 AM Age: 54 years old Clinical indication: Other: Neck pain; Additional info: Midline c6 pain and bilat arm pain S/P heavy lifting earlier today TECHNIQUE: Imaging protocol: Computed tomography of the head without contrast. Radiation optimization: All CT scans at this facility use at least one of these dose optimization techniques: automated exposure control; mA and/or kV adjustment per patient size (includes targeted exams where dose is matched to clinical indication); or iterative reconstruction. COMPARISON: No relevant prior studies available. FINDINGS: Brain: Normal volume for age. No hemorrhage. No significant white matter disease. No edema. Cerebral ventricles: No ventriculomegaly. Bones/joints: Unremarkable. No acute fracture. Paranasal sinuses: Visualized sinuses are unremarkable. No fluid levels. Mastoid air cells: No mastoid effusion. Soft tissues: No focal soft tissue abnormality. IMPRESSION: No acute intracranial abnormality. PROCEDURE INFORMATION: Exam: CT Cervical Spine Without Contrast Exam date and time: 05/02/2020 2:41 AM Age: 54 years old Clinical indication: Other: Neck pain; Additional info: Midline c6 pain and bilat arm pain S/P heavy lifting earlier today TECHNIQUE: Imaging protocol: Computed tomography images of the cervical spine without contrast. Radiation optimization: All CT scans at this facility use at least one of these dose optimization techniques: automated exposure control; mA and/or kV adjustment per patient size (includes targeted exams where dose is matched to clinical indication); or iterative reconstruction. COMPARISON: No relevant prior studies available. FINDINGS: Bones/joints: No acute fracture, vertebral body heights are preserved. There is straightening with slight reversal of normal cervical lordosis, could be related to patient positioning or muscle spasm. No traumatic spondylolisthesis. There are mild scattered facet hypertrophic changes. Discs/Spinal canal/Neural foramina: There is moderate degenerative disc disease at C5-C6 with moderate intervertebral disc height loss and moderate right and mild left osseous neural foraminal narrowing. There are scattered mild degenerative disc changes at the other cervical levels. There is mild left osseous neural foraminal narrowing at C4-C5 related to uncovertebral hypertrophic changes and asymmetric facet hypertrophic changes. Osseous central canal is patent. Soft tissues: No focal abnormality. Trachea: At the level of the thoracic inlet there is likely tracheal diverticulum along the right posterolateral wall of the trachea. Thyroid: No mass. Lymph nodes: No pathologically sized nodes by CT size criteria. IMPRESSION: 1. No acute fracture. 2. Moderate degenerative disc disease at C5-C6 with moderate right and mild left osseous neural foraminal narrowing. Dictated and Authenticated by: Ino Grullon MD. Ordering:CASTILLO Ramirez MD
[2020-05-02 03:31] VITALS: BP 95/54; PULSE 117; RESP 16; O2SAT 95
[2020-05-02 04:00] VITALS: BP 95/54; PULSE 117; RESP 16; O2SAT 95
== END 2020-05-02 03:55 | disposition home or self-care (01) ==
PROVIDERS: Emergency Provider Student in an Organized Health Care Education/Training Program; PCP Family Medicine
DX: M54.2 Cervicalgia (principal); M79.2 Neuralgia and neuritis, unspecified; M79.7 Fibromyalgia; M06.4 Inflammatory polyarthropathy; E87.6 Hypokalemia; E11.9 Type 2 diabetes mellitus without complications; Z79.4 Long term (current) use of insulin
CPT/HCPCS: 36415; 80053; 93005; 96374; 96375; 99285; 70450; 72125; 84484; 85025; 93010; 99284; J1885; J2405

== ENCOUNTER 2020-05-02 16:04 | Emergency (ER) | payer OTHER, MEDICAID, SELFPAY ==
[2020-05-02] VITALS (20 sets, daily range): BP systolic 92–110; BP diastolic 54–73; PULSE 93–128; RESP 13–27; TEMP 36.9; O2SAT 90–94
[2020-05-02] MEDS: Normal Saline 1,000 ML 1000 ML IV (16:36)
--- NOTE | 2020-05-02 16:57 | W.ED.GENAD ---
Discharge Plan Disposition Patient Disposition: HOME Condition: Improving Discharge Details Clinical Impression: Bilateral shoulder pain Primary Care Provider: Louie Lao ED Provider: Letty Abernathy Home Meds and New Rx's Prescriptions: New prednisone 20 mg tablet 60 mg PO DAILY Qty: 30 RF: 0 No Action Restasis 0.05 % dropperette 1 drp OP Q12H RF: 0 (DME) Fritz Aerosol Warrick Enhancer spacer See Dose Instructions .ROUTE .MEDSUPPLY Qty: 1 RF: 0 ipratropium bromide 42 mcg (0.06 %) spray,non-aerosol 2 spray ELVER TID PRNRF: 0 diclofenac sodium 1 % gel 2 gm TP QID PRN (Reason: pain) Qty: 100 RF: 3 albuterol sulfate [ProAir HFA] 90 mcg/actuation HFA aerosol inhaler 2 puff Inhalation Q4H PRN Qty: 8.5 RF: 5 (DME) blood sugar diagnostic Strip 1 ea Miscellaneous TID Qty: 200 RF: 4 Jardiance 25 mg tablet 25 mg PO DAILY Qty: 90 RF: 4 fluticasone propionate 50 mcg/actuation spray,suspension 1 spray NS DAILY PRN (Reason: nasal congestion) Qty: 1 RF: 3 gabapentin 600 mg tablet 600 mg PO TID Qty: 300 RF: 3 (DME) lancets [[employer] Delica Lancets] 33 gauge misc 1 ea Miscellaneous TID Qty: 200 RF: 4 pravastatin 40 mg tablet 40 mg PO DAILY Qty: 90 RF: 3 triamcinolone acetonide 0.5 % cream 1 applic Topical BID Qty: 15 RF: 2 multivitamin [Multi-Day] 1 EACH tablet 1 ea PO DAILY RF: 0 ascorbic acid (vitamin C) [Vitamin C] 500 MG tablet 500 mg PO BID RF: 0 Menopause Support 20 MG tablet 20 mg PO BID RF: 0 cyanocobalamin (vitamin B-12) [Vitamin B-12] 1,000 MCG tablet 5,000 mcg PO DAILY RF: 0 primrose 1 cap PO DAILY RF: 0 cholecalciferol (vitamin D3) 1,000 UNIT tablet 1,000 unit PO DAILY RF: 0 (DME) blood-glucose meter [[employer] Ultra2 Meter] 1 EACH kit 1 ea Miscellaneous DAILY Qty: 1 RF: 1 Potassium Chloride 20 MEQ tablet 20 meq PO BID Qty: 30 RF: 2 (DME) pen needle, diabetic [Unifine Pentips] 31 gauge x 3/16 needle 1 ea Sub-Q AC & HS Qty: 450 RF: 3 mupirocin calcium 2 % cream 1 applic TP TID Qty: 15 RF: 1 insulin lispro [Humalog KwikPen Insulin] 100 unit/mL insulin pen 10 unit SC QAC Qty: 15 RF: 12 loratadine [Claritin] 10 mg tablet 10 mg PO DAILY Qty: 90 RF: 3 furosemide 20 mg tablet 20 mg PO DAILY Qty: 90 RF: 2 esomeprazole magnesium [Nexium] 40 mg capsule,delayed release(DR/EC) 40 mg PO BID Qty: 180 RF: 4 zolpidem 10 mg tablet 10 mg PO QHS PRN (Reason: insomnia) Qty: 30 RF: 5 tramadol 50 mg tablet 50 mg PO Q8H MDD 150 Qty: 90 RF: 0 acetaminophen [Tylenol Extra Strength] 500 MG tablet 2 tab PO Q6H PRN PRNQty: 0 RF: 0 leflunomide 10 mg tablet 10 mg PO DAILY RF: 0 Remicade 100 mg Recon Soln 100 mg IV PRN PRNRF: 0 black cohosh 50 mg Capsule 50 mg PO DAILY RF: 0 Tresiba FlexTouch U-100 100 unit/mL (3 mL) insulin pen 70 unit SC DAILY RF: 0 Discharge Instructions Instructions: Shoulder Pain (ED), Polymyalgia Rheumatica (ED) Additional Instructions: take prednisone 60mg daily until instructed by your doctor, you will likely need a slow taper your symptoms as concerning for Giant cell arteritis and polymyalgia rheumatica you should discuss temporal artery biopsy as soon as possible. Referrals: RHEUMATOLOGY,[facility] – [place] [OTHER] - (call first thing Monday morning for follow up appointment) Medical Decision Making patient returns to ED with symptoms most consistent with PMR. will establish IV, check routine labs. give IV acetaminophen, IV solumedrol 80 mg and valium 2 mg. labs reviewed, magnesium repleted with 1 gm IV, symptoms starting to improve. differentials include PMR and GCA will discharge to home on prednisone 60 mg daily, taper should be by pcp or rheumatology. recommendations for outpatient temporal artery biopsy toradol 15 mg IVP with further improvement. safe for discharge to home for outpatient f/u Medical Records Medical records reviewed: Yes I reviewed the patient's medical records. Medical records narrative: [facility] – [place] records reviewed, rheumatology outpaient f/u from 03/11/20 Lab Data Lab results reviewed: Yes I reviewed the patient's lab results. Lab results narrative: Laboratory Tests Range/Units 05/02/20 05/02/20 05/02/20 16:30 16:30 16:30 WBC (4.4-10.8) 10^3/uL 11.86 H RBC (3.93-5.22) 10^6/uL 5.19 Hgb (11.2-15.7) g/dL 14.9 Hct (36.0-46.0) % 44.4 MCV (80-95) fL 85.5 MCH (27.0-33.0) pg 28.7 MCHC (32.0-36.0) % 33.6 RDW (11.7-14.6) % 13.4 Plt Count (130-400) 10^3/uL 161 MPV (8.0-11.0) fL 11.5 H Immature Gran % 0.4 Neutrophils % 76.7 Lymphocytes % 16.6 Monocytes % 5.7 Eosinophils % 0.3 Basophils % 0.3 Nucleated RBC % % 0 Absolute Neutrophils (1.2-6.7) 10^3/uL 9.10 H Absolute Lymphocytes (1.2-3.4) 10^3/uL 1.97 Absolute Monocytes (0.1-0.8) 10^3/uL 0.68 Absolute Eosinophils (0.0-0.7) 10^3/uL 0.04 Absolute Basophils (0.0-0.2) 10^3/uL 0.04 ESR (0-30) mm/hr Sodium (136-145) mmol/L 136 Potassium (3.5-5.1) mmol/L 3.3 L Chloride (98-107) mmol/L 100 Carbon Dioxide (21.0-32.0) mmol/L 26.9 Anion Gap (3-11) mmol/L 9.1 BUN (7-18) mg/dL 13 Creatinine (0.55-1.02) mg/dL 1.11 H Estimated GFR/1.73 m2 (mL/min/1.73m2) 51.22 Glucose (74-106) mg/dL 128 H Uric Acid (2.6-6.0) mg/dL Calcium (8.5-10.1) mg/dL 8.6 Magnesium (1.8-2.4) mg/dL 1.7 L Total Bilirubin (0.2-1.0) mg/dL 1.0 AST (15-37) U/L 26 ALT (14-59) U/L 53 Alkaline Phosphatase (46-116) U/L 65 C-Reactive Protein (0.0-0.3) mg/dL 8.66 H Total Protein (6.4-8.2) g/dL 7.3 Albumin (3.4-5.0) g/dL 3.2 L Range/Units 05/02/20 05/02/20 16:30 16:30 WBC (4.4-10.8) 10^3/uL RBC (3.93-5.22) 10^6/uL Hgb (11.2-15.7) g/dL Hct (36.0-46.0) % MCV (80-95) fL MCH (27.0-33.0) pg MCHC (32.0-36.0) % RDW (11.7-14.6) % Plt Count (130-400) 10^3/uL MPV (8.0-11.0) fL Immature Gran % Neutrophils % Lymphocytes % Monocytes % Eosinophils % Basophils % Nucleated RBC % % Absolute Neutrophils (1.2-6.7) 10^3/uL Absolute Lymphocytes (1.2-3.4) 10^3/uL Absolute Monocytes (0.1-0.8) 10^3/uL Absolute Eosinophils (0.0-0.7) 10^3/uL Absolute Basophils (0.0-0.2) 10^3/uL ESR (0-30) mm/hr 37 H Sodium (136-145) mmol/L Potassium (3.5-5.1) mmol/L Chloride (98-107) mmol/L Carbon Dioxide (21.0-32.0) mmol/L Anion Gap (3-11) mmol/L BUN (7-18) mg/dL Creatinine (0.55-1.02) mg/dL Estimated GFR/1.73 m2 (mL/min/1.73m2) Glucose (74-106) mg/dL Uric Acid (2.6-6.0) mg/dL 3.9 Calcium (8.5-10.1) mg/dL Magnesium (1.8-2.4) mg/dL Total Bilirubin (0.2-1.0) mg/dL AST (15-37) U/L ALT (14-59) U/L Alkaline Phosphatase (46-116) U/L C-Reactive Protein (0.0-0.3) mg/dL Total Protein (6.4-8.2) g/dL Albumin (3.4-5.0) g/dL Labs: cpk 96 HPI General Date/Time Provider Initiated Documentation: 05/02/20 16:21. Limitations to Documentation: no limitations. Information obtained by: patient. HPI Narrative: patient returns to the ED with c/o bilateral upper wrist elbow and shoulder pain, unable to lift her arms, also reporting pain in her hips and lower extremities. No fevers or recent illness. she denies visual disturbances, she is reporting pain now in her jaw. she reports visual disturbances but states this is longstanding and followed by Dr Catherine, ricardo new was seen in ED last night and given morphine, ketoralac and apap, potassium was replaced with no improvement in her symptoms Related Data Home Medications Medication Instructions Recorded Confirmed Menopause Support 20 mg PO BID 09/29/12 05/02/20 ascorbic acid (vitamin C) [Vitamin 500 mg PO BID 09/29/12 05/02/20 C] multivitamin [Multi-Day] 1 ea PO DAILY 09/29/12 05/02/20 Olivet 1 cap PO DAILY 05/29/14 05/02/20 cyanocobalamin (vitamin B-12) 5,000 mcg PO DAILY 05/29/14 05/02/20 [Vitamin B-12] cholecalciferol (vitamin D3) 1,000 unit PO DAILY 10/09/15 05/02/20 blood-glucose meter [OneTouch #1 kit 11/30/16 05/02/20 Ultra2 Meter] acetaminophen [Tylenol Extra 2 tab PO Q6H PRN PRN #0 tab-cap 04/22/17 05/02/20 Strength] inhalational spacing device #1 each 05/01/18 05/02/20 pen needle, diabetic 31 gauge x #450 each 08/28/18 05/02/2009/08 cyclosporine 0.05 % eye drops in a 1 drp OP Q12H 09/19/18 05/02/20 dropperette mupirocin calcium 2 % topical cream 1 applic TP TID #15 gm 02/27/19 05/02/20 ipratropium bromide 42 mcg (0.06 2 spray ELVER TID PRN ml 03/04/19 05/02/20 %) nasal spray insulin lispro 100 unit/mL 10 unit SC QAC #15 ml 03/25/19 05/02/20 subcutaneous pen loratadine 10 mg tablet 10 mg PO DAILY #90 tab-cap 03/25/19 05/02/20 Remicade 100 mg IV PRN PRN 08/18/19 05/02/20 diclofenac sodium 1 % topical gel 2 gm TP QID PRN #100 gm 08/26/19 05/02/20 furosemide 20 mg tablet 20 mg PO DAILY #90 tab-cap 08/26/19 05/02/20 albuterol sulfate 90 mcg/actuation 2 puff INHALATION Q4H PRN #8.5 gm 09/30/19 05/02/20 aerosol inhaler blood sugar diagnostic #200 strip 09/30/19 05/02/20 empagliflozin 25 mg tablet 25 mg PO DAILY #90 cap 09/30/19 05/02/20 fluticasone propionate 50 1 spray NS DAILY PRN #1 bottle 09/30/19 05/02/20 mcg/actuation nasal spray,suspension gabapentin 600 mg tablet 600 mg PO TID #300 tab 09/30/19 05/02/20 lancets 33 gauge #200 ea 09/30/19 05/02/20 pravastatin 40 mg tablet 40 mg PO DAILY #90 tab-cap 09/30/19 05/02/20 triamcinolone acetonide 0.5 % 1 applic TOPICAL BID #15 gm 09/30/19 05/02/20 topical cream Nexium 40 mg capsule,delayed 40 mg PO BID #180 tab-cap NS 10/02/19 05/02/20 release leflunomide 10 mg PO DAILY 11/21/19 05/02/20 zolpidem 10 mg tablet 10 mg PO QHS PRN #30 tab 02/26/20 05/02/20 tramadol 50 mg tablet 50 mg PO Q8H #90 tab MDD 150 03/16/20 05/02/20 Tresiba FlexTouch U-100 70 unit SC DAILY 05/02/20 05/02/20 black cohosh 50 mg PO DAILY 05/02/20 05/02/20 prednisone 60 mg PO DAILY #30 tab 05/02/20 Previous Rx's Medication Instructions Recorded acetaminophen [Tylenol Extra 2 tab PO Q6H PRN PRN #0 tab-cap 04/22/17 Strength] inhalational spacing device #1 each 05/01/18 pen needle, diabetic 31 gauge x #450 each 08/28/1809/08 mupirocin calcium 2 % topical cream 1 applic TP TID #15 gm 02/27/19 insulin lispro 100 unit/mL 10 unit SC QAC #15 ml 03/25/19 subcutaneous pen loratadine 10 mg tablet 10 mg PO DAILY #90 tab-cap 03/25/19 diclofenac sodium 1 % topical gel 2 gm TP QID PRN #100 gm 08/26/19 furosemide 20 mg tablet 20 mg PO DAILY #90 tab-cap 08/26/19 albuterol sulfate 90 mcg/actuation 2 puff INHALATION Q4H PRN #8.5 gm 09/30/19 aerosol inhaler blood sugar diagnostic #200 strip 09/30/19 empagliflozin 25 mg tablet 25 mg PO DAILY #90 cap 09/30/19 fluticasone propionate 50 1 spray NS DAILY PRN #1 bottle 09/30/19 mcg/actuation nasal spray,suspension gabapentin 600 mg tablet 600 mg PO TID #300 tab 09/30/19 lancets 33 gauge #200 ea 09/30/19 pravastatin 40 mg tablet 40 mg PO DAILY #90 tab-cap 09/30/19 triamcinolone acetonide 0.5 % 1 applic TOPICAL BID #15 gm 09/30/19 topical cream Nexium 40 mg capsule,delayed 40 mg PO BID #180 tab-cap NS 10/02/19 release zolpidem 10 mg tablet 10 mg PO QHS PRN #30 tab 02/26/20 tramadol 50 mg tablet 50 mg PO Q8H #90 tab MDD 150 03/16/20 prednisone 60 mg PO DAILY #30 tab 05/02/20 Allergies Allergy/AdvReac Type Severity Reaction Status Date / Time divalproex sodium AdvReac Intermediate MENTAL, Verified 05/02/20 16:19 [From Depakote] PHYSICAL REACTIONS lithium AdvReac Intermediate MENTAL, Verified 05/02/20 16:19 PHYSICAL REACTIONS methotrexate AdvReac Intermediate Rash Verified 05/02/20 16:19 simvastatin AdvReac Mild MYALGIAS Verified 05/02/20 16:19 thioridazine AdvReac Mild PSYCHOTIC Verified 05/02/20 16:19 adhesive tape AdvReac Verified 05/02/20 16:19 General Stated Complaint: GenMedical NEGRITO: 3 Review of Systems Constitutional Constitutional: Denies fever(s) and Reports headache(s) Eyes Eyes: Reports loss of vision (chronic and not worsened) ENT Ears, Nose, Mouth, and Throat: Denies vertigo, Denies dizziness, Reports headache(s) and Reports neck pain Cardiovascular Cardiovascular: Denies chest pain and Denies dyspnea Respiratory Respiratory: Denies cough and Denies dyspnea Gastrointestinal Gastrointestinal: Denies change in bowel habits, Reports nausea and Denies vomiting Musculoskeletal Musculoskeletal: Denies deformity, Reports arthralgias, Denies joint swelling, Reports limited range of motion, Reports muscle weakness, Reports neck pain and Denies numbness Integumentary/Breasts Skin/Breast: Denies rash and Denies sores Neurologic Neurologic: Denies confusion, Denies vertigo, Denies dizziness, Reports headache(s), Denies lack of coordination, Reports loss of vision (chronic and not worsened), Denies numbness and Denies convulsions Psychiatric Psychiatric: Denies confusion [facility] Medical History Acute tonsillitis Amygdalolith Bipolar disorder Doing well off risperadone. Will leave her off and continue Prozac. Calcific tendinitis of right shoulder Chronic pain syndrome 07/03/17 CONTROLLED SUBSTANCE AGREEMENT (TRAMADOL) Depression (03/16/17) Diabetes mellitus (10/02/12) Diabetes type 2, controlled Dysphonia Exertional dyspnea Gastroesophageal reflux disease + EGD for inflammation (11/27) Hyperlipidemia (10/02/12) Due for recheck of Lipids and A1C along with CBC/CMP... Insomnia Internal derangement of left knee Follow up with Dr. Lawrence Migraine Neck pain (08/12/14) muscle spasm 2014 functional hindu program at [facility] – [place] Obesity Posterior vitreous detachment of left eye (08/16/16) [facility]- VITREOUS CELLS AND CHOROIDAL LESIONS IN BOTH EYES. 08/16/16 Primary fibromyalgia syndrome fibromyalgia Retinopathy (12/01/16) 11/18/16 [facility]-MILD 10/15/18 [facility]-MILD-kb Sleep apnea Undifferentiated inflammatory arthritis Vitamin B12 deficiency (05/29/14) resolved on po B12 Surgical History Hysterectomy, Laproscopic (~01/2011) AT [facility] – [place]/STILL HAS OVARIES Open Carpal Tunnel release (~2000) right Status post excisional biopsy (04/16/18) dr hdz (in office) - granuloma around foreign object (glass) Family History Mother Diabetes Hyperlipidemia Sister No problems noted. Brother Asthma Brother No problems noted. Brother No problems noted. Grandfather Heart disease Grandfather No problems noted. Grandmother Heart disease Grandmother No problems noted. Son Asthma Son Asthma Son No problems noted. 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 Current gender identity: female Duration: 15-30 minutes/day Frequency: 1-2 times per week Theodora/Anglican: Gnosticism Do you feel safe at home: Yes Exam Const General: cooperative, no acute distress, disheveled and ill appearing (older appearing than stated age) chronically Nutritional Appearance: overweight Orientation: alert, awake and oriented x3 HENMT Head: normal to inspection, normocephalic and atraumatic Mouth: oral mucosae normal Resp Effort & Inspection: normal respiratory effort Auscultation: clear to auscultation bilaterally Cardio Rate: regular rate Rhythm: regular rhythm Extrem General: abnormal ROM and other (unable to lift arms up d/t pain. ) Right upper extremity: edema Left upper extremity: edema Course Vital Signs Vital signs: Vital Signs Temperature 36.9 C 05/02/20 16:12 Pulse 128 H 05/02/20 16:12 Respiratory Rate 15 05/02/20 16:12 Blood Pressure 110/73 05/02/20 16:12 Pulse Oximetry 93 05/02/20 16:12 Temperature 36.9 C 05/02/20 16:12 Temperature Source Oral 05/02/20 16:12 Pulse 128 H 05/02/20 16:12 Respiratory Rate 15 05/02/20 16:12 Respiratory Effort Non-Labored 05/02/20 16:16 Blood Pressure 110/73 05/02/20 16:12 Blood Pressure Position Sitting 05/02/20 16:12 Pulse Oximetry 93 05/02/20 16:12 Oxygen Delivery Method Room Air 05/02/20 16:12 Oxygen Flow Rate 0 05/02/20 16:12 Pain Level 10 05/02/20 16:12
[2020-05-02 17:05] LABS: Abs Immature Grans 0.05 10^3/uL (0.0-0.06); Absolute Basophil Count 0.04 10^3/uL (0.0-0.2); Absolute Lymphocyte Count 1.97 10^3/uL (1.2-3.4); Absolute Monocyte Count 0.68 10^3/uL (0.1-0.8); Basophils % 0.3; Eosinophils % 0.3; HCT 44.4 % (36.0-46.0); HGB 14.9 g/dL (11.2-15.7); Immature Grans % 0.4; Lymphocytes % 16.6; MCH 28.7 pg (27.0-33.0); MCHC 33.6 % (32.0-36.0); MCV 85.5 fL (80-95); MPV 11.5 fL (8.0-11.0); Monocytes % 5.7; Neutrophils % 76.7; Nucleated RBC 0 %; Platelet Count 161 10^3/uL (130-400); RBC 5.19 10^6/uL (3.93-5.22); RDW 13.4 % (11.7-14.6); RDW-SD 41.4 fL; WBC 11.86 10^3/uL (4.4-10.8)
[2020-05-02 17:13] LABS: Absolute Eosinophil Count 0.04 10^3/uL (0.0-0.7)
[2020-05-02 17:18] LABS: C-Reactive Protein 8.66 mg/dL (0.0-0.3)
[2020-05-02 17:20] LABS: Uric Acid 3.9 mg/dL (2.6-6.0)
[2020-05-02 17:23] LABS: ALT 53 U/L (14-59); AST 26 U/L (15-37); Albumin 3.2 g/dL (3.4-5.0); Alkaline Phosphatase 65 U/L (46-116); Anion Gap 9.1 mmol/L (3-11); BUN 13 mg/dL (7-18); CO2 26.9 mmol/L (21.0-32.0); CREATININE 1.11 mg/dL (0.55-1.02); Calcium 8.6 mg/dL (8.5-10.1); Chloride 100 mmol/L (98-107); Estimated GFR 51.22 (mL/min/1.73m2); Glucose 128 mg/dL (74-106); Magnesium 1.7 mg/dL (1.8-2.4); Potassium 3.3 mmol/L (3.5-5.1); Sodium 136 mmol/L (136-145); Total Protein 7.3 g/dL (6.4-8.2)
[2020-05-02] MEDS: ACETAMINOPHEN 1,000 MG/100 ML BTL 400 MG IVPB (17:37)
[2020-05-02 17:55] LABS: ESR 37 mm/hr (0-30)
[2020-05-02] MEDS: Ondansetron 4 MG/2 ML VIAL IVP (18:06)
[2020-05-02] MEDS: diazePAM 10 MG/2 ML SYR 2 MG IVP (18:06)
[2020-05-02] MEDS: methylPREDNISolone SUCC 125 MG VIAL 80 MG IVP (18:06)
[2020-05-02] MEDS: Potassium Chloride 20 MEQ TABCR 40 MEQ PO (18:06)
[2020-05-02] MEDS: MAGNESIUM SULFATE 1 GM/100 ML BAG IVPB (18:07)
[2020-05-02] MEDS: Ketorolac 15 MG/ML VIAL IVP (19:20)
[2020-05-02 19:43] LABS: Creatine Kinase 96 U/L (26-192)
[2020-05-12 13:26] LABS: Anaplasma phagocytophilum Negative (Negative); Ehrlichia chaffeensis Negative (Negative); Ehrlichia ewingii/canis Negative (Negative); Ehrlichia muris eauclairensis Negative (Negative); Lyme Ab w Rflx to Lyme Confirm Negative (Negative)
[2020-05-12 13:27] LABS: B. miyamotoi PCR Negative (Negative); Babesia divergens/MO-1 Negative (Negative); Babesia duncani Negative (Negative); Babesia microti Negative (Negative)
== END 2020-05-02 20:15 | disposition home or self-care (01) ==
PROVIDERS: Emergency Provider Nurse Practitioner Acute Care; PCP Family Medicine
DX: M25.511 Pain in right shoulder (principal); M25.512 Pain in left shoulder; M35.3 Polymyalgia rheumatica
CPT/HCPCS: 36415; 80053; 82550; 85652; 87798; 96361; 96365; 96367; 96375; 99284; 83735; 84550; 85025; 86140; 86618; J0131; J1885; J2405; J2930; J3360; J3475

== ENCOUNTER 2020-05-08 01:51 | Outpatient (CLI) | payer OTHER, MEDICAID, SELFPAY ==
[2020-05-08 10:08] LABS: Abs Immature Grans 0.05 10^3/uL (0.0-0.06); Absolute Basophil Count 0.01 10^3/uL (0.0-0.2); Absolute Monocyte Count 0.48 10^3/uL (0.1-0.8); Absolute Neutrophil Count 8.41 10^3/uL (1.2-6.7); Basophils % 0.1; Eosinophils % 0.9; HCT 51.3 % (36.0-46.0); Immature Grans % 0.4; MCH 29.1 pg (27.0-33.0); MCHC 33.1 % (32.0-36.0); MCV 87.7 fL (80-95); MPV 10.3 fL (8.0-11.0); Monocytes % 4.1; Neutrophils % 71.5; Nucleated RBC 0 %; Platelet Count 274 10^3/uL (130-400); RBC 5.85 10^6/uL (3.93-5.22); RDW 13.6 % (11.7-14.6); RDW-SD 42.9 fL; WBC 11.76 10^3/uL (4.4-10.8)
[2020-05-08 10:12] LABS: Absolute Eosinophil Count 0.11 10^3/uL (0.0-0.7)
[2020-05-08 10:51] LABS: ESR 29 mm/hr (0-30)
[2020-05-08 11:07] LABS: ALT 90 U/L (14-59); AST 44 U/L (15-37); C-Reactive Protein 0.76 mg/dL (0.0-0.3); CREATININE 1.11 mg/dL (0.55-1.02); Estimated GFR 51.22 (mL/min/1.73m2)
[2020-05-08 11:23] LABS: Potassium 3.9 mmol/L (3.5-5.1)
== END 2020-05-08 02:11 ==
PROVIDERS: PCP Family Medicine; Visit Provider Internal Medicine Rheumatology
DX: E87.6 Hypokalemia (principal); M19.09 Primary osteoarthritis, other specified site; Z79.899 Other long term (current) drug therapy
CPT/HCPCS: 36415; 85652; 82565; 84132; 84450; 84460; 85025; 86140

== ENCOUNTER 2020-05-08 03:50 | Outpatient (RCR) | payer OTHER, MEDICAID, SELFPAY ==
[2020-05-08 10:05] VITALS: BP 121/83; PULSE 89; RESP 18; TEMP 36.2; O2SAT 98
[2020-05-08] MEDS: Normal Saline Flush 10 ML SYR IVP (10:16)
[2020-05-08] MEDS: Acetaminophen 325 MG TAB 650 MG PO (10:16)
[2020-05-08] MEDS: diphenhydrAMINE 25 MG CAP PO (10:16)
[2020-05-08 10:42] VITALS: BP 111/78; PULSE 81; RESP 18; TEMP 36.2; O2SAT 96
[2020-05-08 10:56] VITALS: BP 111/75; PULSE 83; RESP 18; TEMP 36.5; O2SAT 97
[2020-05-08 11:12] VITALS: BP 112/74; PULSE 84; RESP 18; TEMP 36.5; O2SAT 94
[2020-05-08 11:27] VITALS: BP 113/78; PULSE 83; RESP 19; TEMP 36.5; O2SAT 96
[2020-05-08 11:56] VITALS: BP 122/81; PULSE 91; RESP 18; TEMP 36.5; O2SAT 98
== END 2020-05-25 23:59 | disposition home or self-care (01) ==
LOC: INF 03:50
PROVIDERS: PCP Family Medicine; Visit Provider Nurse Practitioner Family
DX: M06.00 Rheumatoid arthritis without rheumatoid factor, unspecified site (principal)
CPT/HCPCS: 96365; 96366; 96413; 96415; J1745

== ENCOUNTER 2020-05-12 15:53 | Outpatient (REF) | payer OTHER, MEDICAID, SELFPAY ==
[2020-05-16 05:26] LABS: Patient Race White; SARS-CoV-2 RNA Undetected (Undetected); SARS-CoV-2 Specimen Source Nasal
== END 2020-05-12 16:13 ==
LOC: NCHCN 15:53
PROVIDERS: PCP Family Medicine; Visit Provider Physician Assistant
DX: R05 Cough (principal)
CPT/HCPCS: U0003; 87070

== ENCOUNTER 2020-06-05 03:22 | Outpatient (RCR) | payer OTHER, MEDICAID, SELFPAY ==
[2020-05-26 00:05] VITALS: BP 122/81; PULSE 91; RESP 18; TEMP 36.5
[2020-06-05] VITALS (7 sets, daily range): BP systolic 106–126; BP diastolic 72–85; PULSE 83–96; RESP 18–19; TEMP 36.1–36.6; O2SAT 94–98
[2020-06-05] MEDS: diphenhydrAMINE 25 MG CAP PO (09:59)
[2020-06-05] MEDS: Acetaminophen 325 MG TAB 650 MG PO (09:59)
[2020-06-05] MEDS: methylPREDNISolone SUCC 125 MG VIAL 50 MG IVP ×2 (09:59→10:54)
[2020-06-05] MEDS: Normal Saline Flush 10 ML SYR IVP (11:08)
== END 2020-06-25 23:59 | disposition home or self-care (01) ==
LOC: INF 03:22
PROVIDERS: PCP Family Medicine; Visit Provider Nurse Practitioner Family
DX: M06.00 Rheumatoid arthritis without rheumatoid factor, unspecified site (principal)
CPT/HCPCS: 96365; 96366; 96375; 96413; 96415; J1745; J2930

== ENCOUNTER 2020-07-17 10:00 | Outpatient (RCR) | payer OTHER, MEDICAID, SELFPAY ==
[2020-06-26 00:06] VITALS: BP 110/74; PULSE 89; RESP 18; TEMP 36.6
[2020-07-17] VITALS (7 sets, daily range): BP systolic 106–131; BP diastolic 73–84; PULSE 85–98; RESP 18; TEMP 36.2–36.6; O2SAT 94–97
[2020-07-17] MEDS: diphenhydrAMINE 25 MG CAP PO (10:07)
[2020-07-17] MEDS: Acetaminophen 325 MG TAB 650 MG PO (10:07)
[2020-07-17 10:34] LABS: AST 52 U/L (15-37); C-Reactive Protein 0.23 mg/dL (0.0-0.3); CREATININE 1.02 mg/dL (0.55-1.02); Estimated GFR 56.47 (mL/min/1.73m2)
[2020-07-17] MEDS: methylPREDNISolone SUCC 125 MG VIAL 100 MG IVP (10:45)
[2020-07-17 12:50] LABS: Absolute Basophil Count 0.03 10^3/uL (0.0-0.2); Absolute Eosinophil Count 0.13 10^3/uL (0.0-0.7); Absolute Lymphocyte Count 1.81 10^3/uL (1.2-3.4); Absolute Neutrophil Count 2.88 10^3/uL (1.2-6.7); Basophils % 0.6; Eosinophils % 2.5; HCT 46.5 % (36.0-46.0); HGB 15.8 g/dL (11.2-15.7); Lymphocytes % 34.5; MCH 29.5 pg (27.0-33.0); MCV 86.9 fL (80-95); MPV 11.1 fL (8.0-11.0); Monocytes % 7.6; Neutrophils % 54.8; Nucleated RBC 0 %; Platelet Count 205 10^3/uL (130-400); RBC 5.35 10^6/uL (3.93-5.22); RDW 12.9 % (11.7-14.6); RDW-SD 40.5 fL; WBC 5.25 10^3/uL (4.4-10.8)
[2020-07-17 13:37] LABS: ESR 15 mm/hr (0-30)
== END 2020-07-26 23:59 | disposition home or self-care (01) ==
LOC: INF 10:00
PROVIDERS: Internal Medicine Rheumatology; PCP Family Medicine; Visit Provider Nurse Practitioner Family
DX: M06.0A Rheumatoid arthritis without rheumatoid factor, other specified site (principal); Z79.899 Other long term (current) drug therapy; K21.9 Gastro-esophageal reflux disease without esophagitis
CPT/HCPCS: 36415; 85652; 96365; 96366; 96374; 96375; 82565; 84450; 85025; 86140; J1745; J2930

== ENCOUNTER 2020-08-28 05:36 | Outpatient (RCR) | payer OTHER, MEDICAID, SELFPAY ==
[2020-07-27 00:12] VITALS: BP 130/78; PULSE 91; RESP 18; TEMP 36.6
[2020-08-28] VITALS (7 sets, daily range): BP systolic 101–117; BP diastolic 63–81; PULSE 77–89; RESP 17–19; TEMP 36.6–36.9; O2SAT 92–99
[2020-08-28] MEDS: methylPREDNISolone SUCC 125 MG VIAL 100 MG IVP (10:09)
[2020-08-28] MEDS: Acetaminophen 325 MG TAB 650 MG PO (10:10)
[2020-08-28] MEDS: diphenhydrAMINE 25 MG CAP PO (10:10)
== END 2020-09-23 23:59 | disposition home or self-care (01) ==
LOC: INF 05:36
PROVIDERS: PCP Family Medicine; Visit Provider Nurse Practitioner Family
DX: Z79.899 Other long term (current) drug therapy (principal); M05.8A Other rheumatoid arthritis with rheumatoid factor of other specified site; K21.9 Gastro-esophageal reflux disease without esophagitis
CPT/HCPCS: 96365; 96366; 96374; 96375; 96413; 96415; J1745; J2930

== ENCOUNTER 2020-09-07 08:50 | Emergency (ER) | payer OTHER, MEDICAID, SELFPAY ==
[2020-09-07 09:00] VITALS: BP 128/76; PULSE 107; RESP 18; TEMP 36.7; O2SAT 99
[2020-09-07 09:05] VITALS: PULSE 108; O2SAT 97
--- NOTE | 2020-09-07 09:15 | DI.RAD_ITS ---
EXAM: XR KNEE LT 3V AP,LAT,PK CLINICAL HISTORY: left knee pain, suspect patellar dislocation/reloc. TECHNIQUE: 2D digital imaging was performed. COMPARISON: CR,DX XR KNEE 3 VIEWS BILAT from 02/06/2018 FINDINGS: There is no evidence of fracture nor obvious joint effusion. No osseous lesions. With minimal degen erative changes. Some calcification is noted at the insertion of the quadriceps tendon on the oswaldo superior aspect of the patella. IMPRESSION: No fracture nor joint effusion. No osseous lesions DATA REPOSITORY: RADIATION DOSE DELIVERED:
--- NOTE | 2020-09-07 09:20 | ED.GENADUL_ITS ---
Discharge Plan Disposition Patient Disposition: HOME Condition: Good Discharge Details Clinical Impression: Internal derangement of left knee Primary Care Provider: Louie Lao ED Provider: Gale Santizo Home Meds and New Rx's Prescriptions: New (DME) Knee Support Brace Misc See Rx Instructions .ROUTE .MEDSUPPLY Qty: 1 RF: 0 (DME) cane Device See Rx Instructions .ROUTE .MEDSUPPLY Qty: 1 RF: 0 No Action Restasis 0.05 % dropperette 1 drp OP Q12H RF: 0 (DME) Fritz Aerosol Sierra Enhancer spacer See Dose Instructions .ROUTE .MEDSUPPLY Qty: 1 RF: 0 ipratropium bromide 42 mcg (0.06 %) spray,non-aerosol 2 spray ELVER TID PRNRF: 0 diclofenac sodium 1 % gel 2 gm TP QID PRN (Reason: pain) Qty: 100 RF: 3 albuterol sulfate [ProAir HFA] 90 mcg/actuation HFA aerosol inhaler 2 puff Inhalation Q4H PRN Qty: 8.5 RF: 5 (DME) blood sugar diagnostic Strip 1 ea Miscellaneous TID Qty: 200 RF: 4 Jardiance 25 mg tablet 25 mg PO DAILY Qty: 90 RF: 4 fluticasone propionate 50 mcg/actuation spray,suspension 1 spray NS DAILY PRN (Reason: nasal congestion) Qty: 1 RF: 3 gabapentin 600 mg tablet 600 mg PO TID Qty: 300 RF: 3 (DME) lancets [OneTouch Delica Lancets] 33 gauge misc 1 ea Miscellaneous TID Qty: 200 RF: 4 pravastatin 40 mg tablet 40 mg PO DAILY Qty: 90 RF: 3 triamcinolone acetonide 0.5 % cream 1 applic Topical BID Qty: 15 RF: 2 Tresiba FlexTouch U-100 100 unit/mL (3 mL) insulin pen 70 unit SC DAILY Qty: 63 RF: 3 fluconazole 150 mg tablet 150 mg PO Q3D PRN (Reason: yeast infection) Qty: 30 RF: 3 potassium chloride 20 mEq tablet extended release 20 meq PO BID Qty: 60 RF: 11 magnesium oxide 250 mg magnesium tablet 250 mg PO DAILY Qty: 30 RF: 11 multivitamin [Multi-Day] 1 EACH tablet 1 ea PO DAILY RF: 0 ascorbic acid (vitamin C) [Vitamin C] 500 MG tablet 500 mg PO BID RF: 0 cyanocobalamin (vitamin B-12) [Vitamin B-12] 1,000 MCG tablet 5,000 mcg PO DAILY RF: 0 [place]rose 1 cap PO DAILY RF: 0 cholecalciferol (vitamin D3) 1,000 UNIT tablet 1,000 unit PO DAILY RF: 0 (DME) blood-glucose meter [[employer] Ultra2 Meter] 1 EACH kit 1 ea Miscellaneous DAILY Qty: 1 RF: 1 mupirocin calcium 2 % cream 1 applic TP TID Qty: 15 RF: 1 insulin lispro [Humalog KwikPen Insulin] 100 unit/mL insulin pen 10 unit SC QAC Qty: 15 RF: 12 (DME) pen needle, diabetic [Unifine Pentips] 31 gauge x 3/16 needle 1 ea Sub-Q AC & HS Qty: 450 RF: 3 furosemide 20 mg tablet 20 mg PO DAILY Qty: 90 RF: 2 loratadine [Claritin] 10 mg tablet 10 mg PO DAILY Qty: 90 RF: 3 nystatin 100,000 unit/gram powder 1 applic Topical BID PRN Qty: 60 RF: 3 tramadol 50 mg tablet 50 mg PO Q8H MDD 150 Qty: 90 RF: 0 esomeprazole magnesium [Nexium] 40 mg capsule,delayed release(DR/EC) 40 mg PO BID Qty: 180 RF: 0 zolpidem 10 mg tablet 10 mg PO QHS PRN (Reason: insomnia) Qty: 30 RF: 5 acetaminophen [Tylenol Extra Strength] 500 MG tablet 2 tab PO Q6H PRN PRNQty: 0 RF: 0 leflunomide 10 mg tablet 10 mg PO DAILY RF: 0 prednisone 20 mg tablet 60 mg PO DAILY Qty: 30 RF: 0 Remicade 100 mg recon soln 100 mg IV PRN PRNRF: 0 black cohosh 50 mg Capsule 50 mg PO DAILY RF: 0 Discharge Instructions Additional Instructions: Apply Voltaren gel for pain control Follow-up with orthopedic supplied Use your knee brace when ambulatory Use cane for support Please return with redness, worsening pain, fever, chills, or with any new or progressing symptoms Referrals: Mina Lawrence MD [ [facility] STAFF PHYSICIAN] - Medical Decision Making Patient is ambulatory with antalgic with stable gait Given prescription for hands knees: Has Ultram, and Voltaren gel Orthopedic referral No clinical evidence of DVT Neurovascularly intact No evidence of fracture, x-ray image reviewed, pending radiology of review Return precautions discussed and patient expressed understanding, no clinical evidence of secondary infection Differential Diagnosis Differential Diagnosis: Septic arthritis, DVT, patellar dislocation, arthritis Medical Records Medical records reviewed: Yes I reviewed the patient's medical records. HPI This 54-year-old female with chronic arthritis, insulin-dependent diabetes presents with report of her knee locking up at 4 AM this morning. She states that she flexed her knee and the pain dramatically worsened and then improved. Now she is have persistent pain since the event occurred. She denies any additional injuries. She states she had a similar episode when she was 17 and have been had any symptoms since she had cartilage removed from my knee . She denies any known injuries to the affected area. She denies any posterior leg pain, chest pain, shortness of breath, dizziness. She denies any fever or ch ills. General Date/Time Provider Initiated Documentation: 09/07/20 09:11 . Related Data Home Medications Medication Instructions Recorded Confirmed ascorbic acid (vitamin C) [Vitamin 500 mg PO BID 09/29/12 09/07/20 C] multivitamin [Multi-Day] 1 ea PO DAILY 09/29/12 09/07/20 [place] 1 cap PO DAILY 05/29/14 09/07/20 cyanocobalamin (vitamin B-12) 5,000 mcg PO DAILY 05/29/14 09/07/20 [Vitamin B-12] cholecalciferol (vitamin D3) 1,000 unit PO DAILY 10/09/15 09/07/20 blood-glucose meter [OneTouch #1 kit 11/30/16 09/07/20 Ultra2 Meter] acetaminophen [Tylenol Extra 2 tab PO Q6H PRN PRN #0 tab-cap 04/22/17 09/07/20 Strength] inhalational spacing device #1 each 05/01/18 09/07/20 cyclosporine 0.05 % eye drops in a 1 drp OP Q12H 09/19/18 09/07/20 dropperette mupirocin calcium 2 % topical cream 1 applic TP TID #15 gm 02/27/19 09/07/20 ipratropium bromide 42 mcg (0.06 2 spray ELVER TID PRN ml 03/04/19 09/07/20 %) nasal spray diclofenac sodium 1 % topical gel 2 gm TP QID PRN #100 gm 08/26/19 09/07/20 albuterol sulfate 90 mcg/actuation 2 puff INHALATION Q4H PRN #8.5 gm 09/30/19 09/07/20 aerosol inhaler blood sugar diagnostic #200 strip 09/30/19 09/07/20 empagliflozin 25 mg tablet 25 mg PO DAILY #90 cap 09/30/19 09/07/20 fluticasone propionate 50 1 spray NS DAILY PRN #1 bottle 09/30/19 09/07/20 mcg/actuation nasal spray,suspension gabapentin 600 mg tablet 600 mg PO TID #300 tab 09/30/19 09/07/20 lancets 33 gauge #200 ea 09/30/19 09/07/20 pravastatin 40 mg tablet 40 mg PO DAILY #90 tab-cap 09/30/19 09/07/20 triamcinolone acetonide 0.5 % 1 applic TOPICAL BID #15 gm 09/30/19 09/07/20 topical cream leflunomide 10 mg PO DAILY 11/21/19 09/07/20 black cohosh 50 mg PO DAILY 05/02/20 09/07/20 prednisone 60 mg PO DAILY #30 tab 05/02/20 09/07/20 infliximab 100 mg intravenous 100 mg IV PRN PRN 05/05/20 09/07/20 solution magnesium oxide 250 mg PO DAILY #30 tab 05/05/20 09/07/20 potassium chloride 20 mEq 20 meq PO BID #60 tab 05/05/20 09/07/20 tablet,extended release insulin lispro 100 unit/mL 10 unit SC QAC #15 ml 05/13/20 09/07/20 subcutaneous pen pen needle, diabetic 31 gauge x #450 each 05/23/20 09/07/20 3/16 furosemide 20 mg tablet 20 mg PO DAILY #90 tab-cap 06/15/20 09/07/20 loratadine 10 mg tablet 10 mg PO DAILY #90 tab-cap 06/15/20 09/07/20 nystatin 100,000 unit/gram topical 1 applic TOPICAL BID PRN #60 gm 06/15/20 09/07/20 powder tramadol 50 mg tablet 50 mg PO Q8H #90 tab MDD 150 07/15/20 09/07/20 fluconazole 150 mg tablet 150 mg PO Q3D PRN #30 tab 07/22/20 09/07/20 insulin degludec 100 unit/mL (3 70 unit SC DAILY #63 ml 07/22/20 09/07/20 mL) subcutaneous pen Nexium 40 mg capsule,delayed 40 mg PO BID #180 tab-cap NS 08/03/20 09/07/20 release zolpidem 10 mg tablet 10 mg PO QHS PRN #30 tab 08/19/20 09/07/20 cane #1 ea 09/07/20 leg brace [Knee Support Brace] #1 ea 09/07/20 Previous Rx's Medication Instructions Recorded acetaminophen [Tylenol Extra 2 tab PO Q6H PRN PRN #0 tab-cap 04/22/17 Strength] inhalational spacing device #1 each 05/01/18 mupirocin calcium 2 % topical cream 1 applic TP TID #15 gm 02/27/19 diclofenac sodium 1 % topical gel 2 gm TP QID PRN #100 gm 08/26/19 albuterol sulfate 90 mcg/actuation 2 puff INHALATION Q4H PRN #8.5 gm 09/30/19 aerosol inhaler blood sugar diagnostic #200 strip 09/30/19 empagliflozin 25 mg tablet 25 mg PO DAILY #90 cap 09/30/19 fluticasone propionate 50 1 spray NS DAILY PRN #1 bottle 09/30/19 mcg/actuation nasal spray,suspension gabapentin 600 mg tablet 600 mg PO TID #300 tab 09/30/19 lancets 33 gauge #200 ea 09/30/19 pravastatin 40 mg tablet 40 mg PO DAILY #90 tab-cap 09/30/19 triamcinolone acetonide 0.5 % 1 applic TOPICAL BID #15 gm 09/30/19 topical cream prednisone 60 mg PO DAILY #30 tab 05/02/20 magnesium oxide 250 mg PO DAILY #30 tab 05/05/20 potassium chloride 20 mEq 20 meq PO BID #60 tab 05/05/20 tablet,extended release insulin lispro 100 unit/mL 10 unit SC QAC #15 ml 05/13/20 subcutaneous pen pen needle, diabetic 31 gauge x #450 each 05/23/20 3/16 furosemide 20 mg tablet 20 mg PO DAILY #90 tab-cap 06/15/20 loratadine 10 mg tablet 10 mg PO DAILY #90 tab-cap 06/15/20 nystatin 100,000 unit/gram topical 1 applic TOPICAL BID PRN #60 gm 06/15/20 powder tramadol 50 mg tablet 50 mg PO Q8H #90 tab MDD 150 07/15/20 fluconazole 150 mg tablet 150 mg PO Q3D PRN #30 tab 07/22/20 insulin degludec 100 unit/mL (3 70 unit SC DAILY #63 ml 07/22/20 mL) subcutaneous pen Nexium 40 mg capsule,delayed 40 mg PO BID #180 tab-cap NS 08/03/20 release zolpidem 10 mg tablet 10 mg PO QHS PRN #30 tab 08/19/20 cane #1 ea 09/07/20 leg brace [Knee Support Brace] #1 ea 09/07/20 Allergies Allergy/AdvReac Type Severity Reaction Status Date / Time divalproex sodium AdvReac Intermediate MENTAL, Verified 09/07/20 09:08 [From Depakote] PHYSICAL REACTIONS lithium AdvReac Intermediate MENTAL, Verified 09/07/20 09:08 PHYSICAL REACTIONS methotrexate AdvReac Intermediate Rash Verified 09/07/20 09:08 simvastatin AdvReac Mild MYALGIAS Verified 09/07/20 09:08 thioridazine AdvReac Mild PSYCHOTIC Verified 09/07/20 09:08 adhesive tape AdvReac Verified 09/07/20 09:08 General Stated Complaint: Orthopedic NEGRITO: 4 Review of Systems Narrative: Review of systems obtained x5, indicated in HPI [facility] Medical History (Updated 09/07/20 @ 10:09 by ALBERTO Warren) Acute tonsillitis Amygdalolith Bipolar disorder Doing well off risperadone. Will leave her off and continue Prozac. Calcific tendinitis of right shoulder Chronic pain syndrome Chronic pain syndrome Depression (03/16/17) Diabetes mellitus (10/02/12) Diabetes type 2, controlled Dysphonia Exertional dyspnea Gastroesophageal reflux disease + EGD for inflammation (11/27) Hyperlipidemia (10/02/12) Due for recheck of Lipids and A1C along with CBC/CMP... Insomnia Internal derangement of left knee Follow up with Dr. Lawrence Migraine Neck pain (08/12/14) muscle spasm 2014 [place] [facility] [place]erior vitreous [place] of left eye (08/16/16) [facility]- VITREOUS CELLS AND CHOROIDAL LESIONS IN BOTH EYES. 08/16/16 Primary fibromyalgia syndrome fibromyalgia Retinopathy (12/01/16) 11/18/16 [facility] 10/15/18 [facility]-kb Sleep apnea Undifferentiated inflammatory arthritis Vitamin B12 deficiency (05/29/14) resolved on po B12 Surgical History [place], [place] [facility] [place] Open Carpal Tunnel release (~2000) right Status post excisional biopsy (04/16/18) dr hdz (in office) - granuloma around foreign object (glass) Family History Mother Diabetes Hyperlipidemia Sister No problems noted. Brother Asthma Brother No problems noted. Brother No problems noted. Grandfather Heart disease Grandfather No problems noted. Grandmother Heart disease Grandmother No problems noted. Son Asthma Son Asthma Son No problems noted. 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 Current gender identity: female Duration: 15-30 minutes/day Frequency: 1-2 times per week Theodora/Mandaen: Adventist Do you feel safe at home: Yes Exam Const General: cooperative and healthy appearing Skin General skin exam: no rashes or lesions noted Extrem Other: Left knee with tenderness to the suprapatellar region, no palpable bursitis, no erythema, no crepitus, no calf tenderness or swelling, neurovascularly intact, no tenderness to left hip or left ankle Course Vital Signs Vital signs: Vital Signs Temperature 36.7 C 09/07/20 09:00 Pulse 107 H 09/07/20 09:00 Respiratory Rate 18 09/07/20 09:00 Blood Pressure 128/76 09/07/20 09:00 Pulse Oximetry 99 09/07/20 09:00 Temperature 36.7 C 09/07/20 09:00 Temperature Source Skin 09/07/20 09:00 Pulse 107 H 09/07/20 09:00 Respiratory Rate 18 09/07/20 09:00 Respiratory Effort Non-Labored 09/07/20 09:08 Blood Pressure 128/76 09/07/20 09:00 Blood Pressure Position Sitting 09/07/20 09:00 Pulse Oximetry 99 09/07/20 09:00 Oxygen Delivery Method Room Air 09/07/20 09:00 Oxygen Flow Rate 0 09/07/20 09:00 Pain Level 5 09/07/20 09:00
[2020-09-07] MEDS: traMADol 50 MG TAB PO (09:28)
== END 2020-09-07 10:20 | disposition home or self-care (01) ==
PROVIDERS: Emergency Provider Physician Assistant; PCP Family Medicine
DX: M23.8X2 Other internal derangements of left knee (principal); M23.92 Unspecified internal derangement of left knee
CPT/HCPCS: 73562; 99283

== ENCOUNTER 2020-09-22 18:22 | Outpatient (REF) | payer OTHER, MEDICAID, SELFPAY ==
[2020-09-24 14:16] LABS: COVID-19 RT-PCR UVMMC Result Negative (Negative)
== END 2020-09-22 18:23 | disposition home or self-care (01) ==
LOC: LBN 18:22
PROVIDERS: PCP Family Medicine; Visit Provider Nurse Practitioner Family
DX: J02.9 Acute pharyngitis, unspecified (principal); Z20.822 Contact with and (suspected) exposure to COVID-19
CPT/HCPCS: U0003; 87070

== ENCOUNTER 2020-10-09 10:00 | Outpatient (RCR) | payer OTHER, MEDICAID, SELFPAY ==
[2020-09-24 00:02] VITALS: BP 117/81; PULSE 88; RESP 17; TEMP 36.6
[2020-10-09] MEDS: Acetaminophen 325 MG TAB 650 MG PO (10:09)
[2020-10-09] MEDS: diphenhydrAMINE 25 MG CAP PO (10:09)
[2020-10-09] MEDS: methylPREDNISolone SUCC 125 MG VIAL 100 MG IVP (10:10)
[2020-10-09 10:19] LABS: Abs Immature Grans 0.02 10^3/uL (0.0-0.06); Absolute Basophil Count 0.06 10^3/uL (0.0-0.2); Absolute Eosinophil Count 0.18 10^3/uL (0.0-0.7); Absolute Lymphocyte Count 2.18 10^3/uL (1.2-3.4); Absolute Neutrophil Count 3.94 10^3/uL (1.2-6.7); Basophils % 0.9; Eosinophils % 2.6; HCT 45.6 % (36.0-46.0); HGB 15.7 g/dL (11.2-15.7); Immature Grans % 0.3; Lymphocytes % 31.2; MCHC 34.4 % (32.0-36.0); MCV 84.1 fL (80-95); MPV 11.1 fL (8.0-11.0); Monocytes % 8.6; Neutrophils % 56.4; Nucleated RBC 0 %; Platelet Count 228 10^3/uL (130-400); RBC 5.42 10^6/uL (3.93-5.22); RDW 12.9 % (11.7-14.6); WBC 6.98 10^3/uL (4.4-10.8)
[2020-10-09 10:22] LABS: ESR 32 mm//hr (0-30)
[2020-10-09 10:28] VITALS: BP 101/71; PULSE 84; RESP 16; TEMP 37; O2SAT 94
[2020-10-09 10:28] LABS: ALT 67 U/L (14-59); AST 47 U/L (15-37); C-Reactive Protein 0.29 mg/dL (0.0-0.3); Estimated GFR 57.56 (mL/min/1.73m2)
[2020-10-09 10:45] VITALS: BP 102/76; PULSE 62; RESP 16; TEMP 36; O2SAT 96
[2020-10-09 11:10] VITALS: BP 92/61; PULSE 84; RESP 18; TEMP 36.5; O2SAT 95
[2020-10-09 11:41] VITALS: BP 99/68; PULSE 82; RESP 16; TEMP 36.5; O2SAT 93
[2020-10-09 12:14] VITALS: BP 100/71; PULSE 84; RESP 16; TEMP 36.2; O2SAT 97
== END 2020-10-23 23:59 | disposition home or self-care (01) ==
LOC: INF 10:00
PROVIDERS: Internal Medicine Rheumatology; PCP Family Medicine; Visit Provider Nurse Practitioner Family
DX: M06.0A Rheumatoid arthritis without rheumatoid factor, other specified site (principal); K21.9 Gastro-esophageal reflux disease without esophagitis; Z79.899 Other long term (current) drug therapy
CPT/HCPCS: 36415; 85652; 96365; 96366; 96374; 96375; 96413; 96415; 82565; 84450; 84460; 85025; 86140; J1745; J2930

== ENCOUNTER → 2020-10-16 09:33 | Outpatient (BNVA) | payer OTHER, MEDICAID, SELFPAY | PROVIDERS: PCP Family Medicine; Referring Provider Student in an Organized Health Care Education/Training Program; Visit Provider Student in an Organized Health Care Education/Training Program | DX: M25.562 Pain in left knee (principal) | CPT/HCPCS: 99213 ==

== ENCOUNTER 2020-11-06 04:01 | Outpatient (CLI) | payer OTHER, MEDICAID, SELFPAY ==
--- NOTE | 2020-11-06 06:45 | DI.MRI_ITS ---
Exam(s) MR LOWER JOINT LT WO EXAM: MR LOWER JOINT LT WO CLINICAL HISTORY: KNEE PAIN, TEAR MEDIAL MENISCUS,S83.242A. TECHNIQUE: Multiplanar multisequence MRI was performed. COMPARISON: CR XR KNEE LT 3V AP,LAT,PK from 09/07/2020 CR XR KNEE LT 3V AP,LAT,PK from 09/07/2020 FINDINGS: Small joint effusion. Tiny Bryan's cyst. Thinning and irregularity of patellar cartilage greater at the apex and medial facet. No focal defec t. Mild red marrow reconversion. No bony contusion. Mild marginal spurring femoral condyles and tibial plateaus. Enthesophyte at quadriceps insertion on the patella and patellar tendon insertion at the tibial tubercle. Cruciate and collateral ligaments and extensor mechanism appear intact. Lateral meniscus shows mild degenerative inter substance change. Medial meniscus: Irregular abnormal areas of increased signal in the body and posterior horn. The ma in component of the tear is horizontal, extending to the inferior articular surface. No displaced fr agment is seen. The anterior horn appears intact. IMPRESSION: Complex tear of the posterior horn and body of the medial meniscus. No ligament or tendon tear. Patellar chondromalacia. DATA REPOSITORY:
== END 2020-11-06 04:21 ==
PROVIDERS: PCP Family Medicine; Visit Provider Student in an Organized Health Care Education/Training Program
DX: M25.562 Pain in left knee (principal); S83.242A Other tear of medial meniscus, current injury, left knee, initial encounter; M25.462 Effusion, left knee; M71.22 Synovial cyst of popliteal space [Baker], left knee; M22.42 Chondromalacia patellae, left knee
CPT/HCPCS: 73721

== ENCOUNTER → 2020-11-10 08:02 | Outpatient (BNVA) | payer OTHER, MEDICAID, SELFPAY | PROVIDERS: PCP Family Medicine; Referring Provider Family Medicine; Visit Provider Physician Assistant Surgical | DX: S83.242D Other tear of medial meniscus, current injury, left knee, subsequent encounter (principal); X50.9XXD Other and unspecified overexertion or strenuous movements or postures, subsequent encounter; M22.2X1 Patellofemoral disorders, right knee; M22.2X2 Patellofemoral disorders, left knee | CPT/HCPCS: 99213 ==

== ENCOUNTER 2020-11-19 10:00 | Outpatient (RCR) | payer OTHER, MEDICAID, SELFPAY ==
[2020-11-19] VITALS (7 sets, daily range): BP systolic 103–131; BP diastolic 70–83; PULSE 78–94; RESP 12–16; TEMP 36–36.7; O2SAT 93–96
[2020-11-19] MEDS: diphenhydrAMINE 25 MG CAP PO (10:00)
[2020-11-19] MEDS: Acetaminophen 325 MG TAB 650 MG PO (10:01)
[2020-11-19] MEDS: Normal Saline Flush 10 ML SYR IVP (10:01)
[2020-11-19] MEDS: methylPREDNISolone SUCC 125 MG VIAL 100 MG IVP (10:02)
[2020-11-19 10:37] LABS: Abs Immature Grans 0.01 10^3/uL (0.0-0.06); Absolute Basophil Count 0.04 10^3/uL (0.0-0.2); Absolute Eosinophil Count 0.13 10^3/uL (0.0-0.7); Absolute Lymphocyte Count 1.76 10^3/uL (1.2-3.4); Absolute Monocyte Count 0.41 10^3/uL (0.1-0.8); Absolute Neutrophil Count 2.93 10^3/uL (1.2-6.7); Basophils % 0.8; Eosinophils % 2.5; HCT 46.2 % (36.0-46.0); HGB 15.5 g/dL (11.2-15.7); Immature Grans % 0.2; Lymphocytes % 33.3; MCHC 33.5 % (32.0-36.0); MCV 86.4 fL (80-95); MPV 10.8 fL (8.0-11.0); Monocytes % 7.8; Neutrophils % 55.4; Nucleated RBC 0 %; Platelet Count 188 10^3/uL (130-400); RBC 5.35 10^6/uL (3.93-5.22); RDW 13.3 % (11.7-14.6); RDW-SD 41.6 fL; WBC 5.28 10^3/uL (4.4-10.8)
[2020-11-19 10:50] LABS: ALT 46 U/L (14-59); AST 26 U/L (15-37); Estimated GFR 57.56 (mL/min/1.73m2)
== END 2020-11-23 23:59 | disposition home or self-care (01) ==
LOC: INF 10:00
PROVIDERS: Internal Medicine Rheumatology; Visit Provider Internal Medicine
DX: Z79.899 Other long term (current) drug therapy (principal); M05.7A Rheumatoid arthritis with rheumatoid factor of other specified site without organ or systems involvement; K21.9 Gastro-esophageal reflux disease without esophagitis
CPT/HCPCS: 36415; 96365; 96366; 96374; 96375; 96413; 96415; 82565; 84450; 84460; 85025; J1745; J2930

== ENCOUNTER 2020-12-07 02:26 | Outpatient (CLI) | payer OTHER, MEDICAID, SELFPAY ==
[2020-12-07 11:26] LABS: Source Nasal/Nares
[2020-12-07 21:00] LABS: COVID-19 PCR Negative (Negative)
== END 2020-12-07 02:27 | disposition home or self-care (01) ==
LOC: LBO 02:27
PROVIDERS: Visit Provider Student in an Organized Health Care Education/Training Program
DX: Z20.822 Contact with and (suspected) exposure to COVID-19 (principal); Z01.818 Encounter for other preprocedural examination
CPT/HCPCS: 87635

== ENCOUNTER 2020-12-07 19:15 | Outpatient (REF) | payer OTHER, MEDICAID, SELFPAY ==
[2020-12-09 11:23] LABS: Lyme Ab w Rflx to Lyme Confirm Negative (Negative)
[2020-12-10 17:52] LABS: Anaplasma phagocytophilum Negative (Negative); B. miyamotoi PCR Negative (Negative); Babesia divergens/MO-1 Negative (Negative); Babesia duncani Negative (Negative); Babesia microti Negative (Negative); Ehrlichia chaffeensis Negative (Negative); Ehrlichia ewingii/canis Negative (Negative); Ehrlichia muris eauclairensis Negative (Negative)
== END 2020-12-07 19:16 | disposition home or self-care (01) ==
LOC: NCHCN 19:15
PROVIDERS: Visit Provider Nurse Practitioner Family
DX: W57.XXXA Bitten or stung by nonvenomous insect and other nonvenomous arthropods, initial encounter (principal); T14.8XXA Other injury of unspecified body region, initial encounter
CPT/HCPCS: 87798; 86618

== ENCOUNTER 2020-12-09 08:18 | Day surgery (SDC) | payer OTHER, MEDICAID, SELFPAY ==
--- NOTE | 2020-11-18 15:44 | ANES.CON_ITS ---
General Date of Service Date of Service: 11/18/20 Reason for Consult Requesting Provider: Mina Lawrence How Consult Conducted:: Chart Review Reason for Consult:: fitness for anesthesia here at [facility]. Consult Recommendation after Review:: ok to proceed. Meds Allergies and Home Medications Allergies Allergy/AdvReac Type Severity Reaction Status Date / Time divalproex sodium AdvReac Intermediate MENTAL, Verified 11/10/20 08:11 [From Depakote] PHYSICAL REACTIONS lithium AdvReac Intermediate MENTAL, Verified 11/10/20 08:11 PHYSICAL REACTIONS methotrexate AdvReac Intermediate Rash Verified 11/10/20 08:11 simvastatin AdvReac Mild MYALGIAS Verified 11/10/20 08:11 thioridazine AdvReac Mild PSYCHOTIC Verified 11/10/20 08:11 adhesive tape AdvReac Verified 11/10/20 08:11 Home Medication Medication Instructions Recorded ascorbic acid (vitamin C) [Vitamin 500 mg PO BID 09/29/12 C] multivitamin [Multi-Day] 1 ea PO DAILY 09/29/12 [place] 1 cap PO DAILY 05/29/14 cyanocobalamin (vitamin B-12) 5,000 mcg PO DAILY 05/29/14 [Vitamin B-12] cholecalciferol (vitamin D3) 1,000 unit PO DAILY 10/09/15 acetaminophen [Tylenol Extra 2 tab PO Q6H PRN PRN #0 tab-cap 04/22/17 Strength] inhalational spacing device #1 each 05/01/18 cyclosporine 0.05 % eye drops in a 1 drp OP Q12H 09/19/18 dropperette mupirocin calcium 2 % topical cream 1 applic TP TID #15 gm 02/27/19 ipratropium bromide 42 mcg (0.06 2 spray ELVER TID PRN ml 03/04/19 %) nasal spray diclofenac sodium 1 % topical gel 2 gm TP QID PRN #100 gm 08/26/19 albuterol sulfate 90 mcg/actuation 2 puff INHALATION Q4H PRN #8.5 gm 09/30/19 aerosol inhaler empagliflozin 25 mg tablet 25 mg PO DAILY #90 cap 09/30/19 lancets 33 gauge #200 ea 09/30/19 triamcinolone acetonide 0.5 % 1 applic TOPICAL BID #15 gm 09/30/19 topical cream leflunomide 10 mg PO DAILY 11/21/19 black cohosh 50 mg PO DAILY 05/02/20 infliximab 100 mg intravenous 100 mg IV PRN PRN 05/05/20 solution magnesium oxide 250 mg PO DAILY #30 tab 05/05/20 potassium chloride 20 mEq 20 meq PO BID #60 tab 05/05/20 tablet,extended release insulin lispro 100 unit/mL 10 unit SC QAC #15 ml 05/13/20 subcutaneous pen pen needle, diabetic 31 gauge x #450 each 05/23/20 3/16 furosemide 20 mg tablet 20 mg PO DAILY #90 tab-cap 06/15/20 loratadine 10 mg tablet 10 mg PO DAILY #90 tab-cap 06/15/20 nystatin 100,000 unit/gram topical 1 applic TOPICAL BID PRN #60 gm 06/15/20 powder insulin degludec 100 unit/mL (3 70 unit SC DAILY #63 ml 07/22/20 mL) subcutaneous pen zolpidem 10 mg tablet 10 mg PO QHS PRN #30 tab 08/19/20 cane #1 ea 09/07/20 leg brace [Knee Support Brace] #1 ea 09/07/20 fluticasone propionate 50 1 spray NS BID PRN ml 10/16/20 mcg/actuation nasal spray,suspension tramadol 50 mg tablet 50 mg PO Q8H #90 tab MDD 150 10/16/20 alprazolam 0.5 mg tablet 0.5 mg PO ONCE PRN #2 tab 10/19/20 blood sugar diagnostic #200 strip 10/23/20 blood-glucose meter #1 kit 10/23/20 Nexium 40 mg capsule,delayed 40 mg PO BID #180 tab-cap NS 10/28/20 release gabapentin 600 mg tablet 600 mg PO TID #60 tab 10/28/20 pravastatin 40 mg tablet 40 mg PO DAILY #90 tab-cap 10/28/20 PFSH Active Problems Active Problems: Problem Status Onset Code Patellofemoral syndrome of both knees M22.2X1, M22.2X2 Tear of medial meniscus of left knee S83.242A Chronic pain syndrome G89.4 Amygdalolith J35.8 Dysphonia R49.0 Exertional dyspnea R06.00 Sore throat J02.9 Hoarseness R49.0 Dysphagia R13.10 Contact dermatitis L25.9 Monilial intertrigo B37.2 Strep throat J02.0 Vaginitis N76.0 Acute tonsillitis J03.90 Abdominal pain R10.9 Carpal tunnel syndrome G56.00 Depressed bipolar I disorder F31.9 Status post laparoscopic hysterectomy Z90.710 History of tachycardia Z87.898 Internal derangement of left knee M23.92 Undifferentiated inflammatory arthritis M06.4 Calcific tendinitis of right shoulder M75.31 Retinopathy 12/01/16 H35.00 Primary fibromyalgia syndrome M79.7 Posterior vitreous detachment of left eye 08/16/16 H43.812 Obesity E66.9 Neck pain 08/12/14 M54.2 Migraine G43.909 Insomnia G47.00 Hyperlipidemia 10/02/12 E78.5 Gastroesophageal reflux disease K21.9 Diabetes mellitus 10/02/12 E11.9 Depression 03/16/17 F32.9 Chronic pain syndrome G89.4 Diabetes type 2, controlled E11.9 Hypokalemia E87.6 Retinitis H30.90 Bipolar disorder F31.9 Medical History Medical History Acute tonsillitis Amygdalolith Bipolar disorder Doing well off risperadone. Will leave her off and continue Prozac. Calcific tendinitis of right shoulder Chronic pain syndrome Chronic pain syndrome Depression (03/16/17) Diabetes mellitus (10/02/12) Diabetes type 2, controlled Dysphonia Exertional dyspnea Gastroesophageal reflux disease + EGD for inflammation (11/27) Hyperlipidemia (10/02/12) Due for recheck of Lipids and A1C along with CBC/CMP... Insomnia Internal derangement of left knee Follow up with Dr. Lawrence Migraine Neck pain (08/12/14) muscle spasm 2014 functional [facility] program at [facility] [place] Obesity Posterior vitreous detachment of left eye (08/16/16) [facility]- VITREOUS CELLS AND CHOROIDAL LESIONS IN BOTH EYES. 08/16/16 Primary fibromyalgia syndrome fibromyalgia Retinopathy (12/01/16) 11/18/16 [facility] 10/15/18 [facility] Sleep apnea Undifferentiated inflammatory arthritis Vitamin B12 deficiency (05/29/14) resolved on po B12 Surgical History Surgical History Hysterectomy, Laproscopic (~01/2011) AT [facility] [place]STILL HAS OVARIES Open Carpal Tunnel release (~2000) right Status post excisional biopsy (04/16/18) dr hdz (in office) - granuloma around foreign object (glass) Tobacco Smoking/Tobacco Use Status: Former Tobacco Use Alcohol Alcohol Intake: former Substance Use Substance use: Never Substance use type: does not use Vital Signs & Lab Results Point of Care Results Nursing Point of Care Results: No Data to Display Lab Results Blood Type / Crossmatch: No Data to Display Complete Blood Count: No Data to Display Complete Metabolic Panel: Hemoglobin A1c 7.1 % (4.5-5.7) H 10/20/20 11:16 10/20/20 Liver Function Panel: No Data to Display Coagulation Panel: No Data to Display Cardiac Panel: No Data to Display Arterial Blood Gas: No Data to Display Venous Blood Gas: No Data to Display Pancreas Panel: No Data to Display Thyroid Panel: No Data to Display Infectious Disease: No Data to Display Blood Cultures: No Data to Display Toxicology Panel: No Data to Display Imaging and Studies Imaging and Studies EKG Summary: 05/15: sinus tach. Stress Test Summary: 04/11: significantly reduced exercise capacity, no objective evidence of ischemia. Echocardiogram Summary: 04/11: LVEF 55-60%, no WMA, rv fxn wnl. Pulmonary Function Summary: 01/12: no evidence of obstructive airway dz, no bronchodilator response. Anesthesia Assessment and Plan Anesthesia History Personal History: No History of Anesthesia Complications Family History: No Family History of Anesthesia Complications Preoperative Comments:: Asked to review Trini's fitness for anesthesia here at [facility] for an upcoming knee arthroscopy. Based off her chart review I do not see any issues for her moving forward with surgery.
[2020-12-09] VITALS (8 sets, daily range): BP systolic 81–122; BP diastolic 54–82; PULSE 66–95; RESP 14–19; TEMP 36.1–36.6; O2SAT 93–99; BMI 39.0
--- NOTE | 2020-12-09 08:28 | W.ANESPRE ---
General Info Date of Service Date Performed: 12/09/20 Height: 5 ft Weight: 90.718 kg Body Mass Index (BMI): 39.0 Surgical Procedure: Operation Date: 12/09/20 11:55 Proposed Procedures Side Surgeon p lt knee arthroscopic partial medial menisectomy Left Mina Lawrence MD Meds Allergies and Home Medications Allergies Allergy/AdvReac Type Severity Reaction Status Date / Time divalproex sodium AdvReac Intermediate MENTAL, Verified 12/09/20 08:35 [From Depakote] PHYSICAL REACTIONS lithium AdvReac Intermediate MENTAL, Verified 12/09/20 08:35 PHYSICAL REACTIONS methotrexate AdvReac Intermediate Rash Verified 12/09/20 08:35 simvastatin AdvReac Mild MYALGIAS Verified 12/09/20 08:35 thioridazine AdvReac Mild PSYCHOTIC Verified 12/09/20 08:35 adhesive tape AdvReac Verified 12/09/20 08:35 Home Medication Medication Instructions Recorded ascorbic acid (vitamin C) [Vitamin 500 mg PO BID 09/29/12 C] multivitamin [Multi-Day] 1 ea PO DAILY 09/29/12 [place] 1 cap PO DAILY 05/29/14 cyanocobalamin (vitamin B-12) 5,000 mcg PO DAILY 05/29/14 [Vitamin B-12] cholecalciferol (vitamin D3) 1,000 unit PO DAILY 10/09/15 acetaminophen [Tylenol Extra 2 tab PO Q6H PRN PRN #0 tab-cap 04/22/17 Strength] inhalational spacing device #1 each 05/01/18 mupirocin calcium 2 % topical cream 1 applic TP TID #15 gm 02/27/19 ipratropium bromide 42 mcg (0.06 2 spray ELVER TID PRN ml 03/04/19 %) nasal spray diclofenac sodium 1 % topical gel 2 gm TP QID PRN #100 gm 08/26/19 albuterol sulfate 90 mcg/actuation 2 puff INHALATION Q4H PRN #8.5 gm 09/30/19 aerosol inhaler empagliflozin 25 mg tablet 25 mg PO DAILY #90 cap 09/30/19 lancets 33 gauge #200 ea 09/30/19 triamcinolone acetonide 0.5 % 1 applic TOPICAL BID #15 gm 09/30/19 topical cream leflunomide 10 mg PO DAILY 11/21/19 black cohosh 50 mg PO DAILY 05/02/20 infliximab 100 mg intravenous 100 mg IV PRN PRN 05/05/20 solution magnesium oxide 250 mg PO DAILY #30 tab 05/05/20 potassium chloride 20 mEq 20 meq PO BID #60 tab 05/05/20 tablet,extended release insulin lispro 100 unit/mL 10 unit SC QAC #15 ml 05/13/20 subcutaneous pen pen needle, diabetic 31 gauge x #450 each 05/23/20 3/16 furosemide 20 mg tablet 20 mg PO DAILY #90 tab-cap 06/15/20 loratadine 10 mg tablet 10 mg PO DAILY #90 tab-cap 06/15/20 nystatin 100,000 unit/gram topical 1 applic TOPICAL BID PRN #60 gm 06/15/20 powder insulin degludec 100 unit/mL (3 70 unit SC DAILY #63 ml 07/22/20 mL) subcutaneous pen zolpidem 10 mg tablet 10 mg PO QHS PRN #30 tab 08/19/20 cane #1 ea 09/07/20 leg brace [Knee Support Brace] #1 ea 09/07/20 fluticasone propionate 50 1 spray NS BID PRN ml 10/16/20 mcg/actuation nasal spray,suspension tramadol 50 mg tablet 50 mg PO Q8H #90 tab MDD 150 10/16/20 alprazolam 0.5 mg tablet 0.5 mg PO ONCE PRN #2 tab 10/19/20 blood sugar diagnostic #200 strip 10/23/20 blood-glucose meter #1 kit 10/23/20 Nexium 40 mg capsule,delayed 40 mg PO BID #180 tab-cap NS 10/28/20 release gabapentin 600 mg tablet 600 mg PO TID #60 tab 10/28/20 pravastatin 40 mg tablet 40 mg PO DAILY #90 tab-cap 10/28/20 doxycycline hyclate 100 mg capsule 200 mg PO ONCE #2 cap 12/07/20 Current Visit Medications: Current Medications Generic Name Dose Route Start Last Admin Trade Name Freq PRN Reason Stop Dose Admin Ringer's Solution 1,000 mls @ 80 mls/hr 12/09/20 06:00 IV 01/07/21 23:59 INFUSION KILEY Cefazolin Sodium/Dextrose 2 gm in 50 mls @ 100 mls/hr 12/09/20 06:00 Ancef Duplex IVPB 01/07/21 23:59 PREOP KILEY IV Miscellaneous Supplies 1 each 12/09/20 06:00 Iv Access IV 01/07/21 23:59 DIRECTED KILEY Sodium Chloride 0 ml 12/09/20 06:00 Normal Saline Flush 10 Ml Syr IV 01/07/21 23:59 PRN PRN Sodium Chloride 0 ml 12/09/20 06:00 Normal Saline 10 Ml Vial IJ 01/07/21 23:59 DIRECTED PRN Sterile Water 0 ml 12/09/20 06:00 Water,Injection,Sterile 10 Ml Vial IJ 01/07/21 23:59 DIRECTED PRN PFSH Active Problems Active Problems: Problem Status Onset Code Patellofemoral syndrome of both knees M22.2X1, M22.2X2 Tear of medial meniscus of left knee S83.242A Chronic pain syndrome G89.4 Amygdalolith J35.8 Dysphonia R49.0 Exertional dyspnea R06.00 Sore throat J02.9 Hoarseness R49.0 Dysphagia R13.10 Contact dermatitis L25.9 Monilial intertrigo B37.2 Strep throat J02.0 Vaginitis N76.0 Acute tonsillitis J03.90 Abdominal pain R10.9 Carpal tunnel syndrome G56.00 Depressed bipolar I disorder F31.9 Status post laparoscopic hysterectomy Z90.710 History of tachycardia Z87.898 Internal derangement of left knee M23.92 Undifferentiated inflammatory arthritis M06.4 Calcific tendinitis of right shoulder M75.31 Retinopathy 12/01/16 H35.00 Primary fibromyalgia syndrome M79.7 Posterior vitreous detachment of left eye 08/16/16 H43.812 Obesity E66.9 Neck pain 08/12/14 M54.2 Migraine G43.909 Insomnia G47.00 Hyperlipidemia 10/02/12 E78.5 Gastroesophageal reflux disease K21.9 Diabetes mellitus 10/02/12 E11.9 Depression 03/16/17 F32.9 Chronic pain syndrome G89.4 Diabetes type 2, controlled E11.9 Hypokalemia E87.6 Retinitis H30.90 Bipolar disorder F31.9 Medical History Medical History Acute tonsillitis Amygdalolith Bipolar disorder Doing well off risperadone. Will leave her off and continue Prozac. Calcific tendinitis of right shoulder Chronic pain syndrome Chronic pain syndrome Depression (03/16/17) Diabetes mellitus (10/02/12) Diabetes type 2, controlled Dysphonia Exertional dyspnea Gastroesophageal reflux disease + EGD for inflammation (11/27) Hyperlipidemia (10/02/12) Due for recheck of Lipids and A1C along with CBC/CMP... Insomnia Internal derangement of left knee Follow up with Dr. Lawrence Migraine Neck pain (08/12/14) muscle spasm 2014 functional oriental orthodox program at [facility] Obesity Posterior vitreous detachment of left eye (08/16/16) [facility]- VITREOUS CELLS AND CHOROIDAL LESIONS IN BOTH EYES. 08/16/16 Primary fibromyalgia syndrome fibromyalgia Retinopathy (12/01/16) 11/18/16 [facility] 10/15/18 [facility] Sleep apnea Undifferentiated inflammatory arthritis Vitamin B12 deficiency (05/29/14) resolved on po B12 Surgical History Surgical History Hysterectomy, Laproscopic (~01/2011) AT [facility]/STILL HAS OVARIES Open Carpal Tunnel release (~2000) right Status post excisional biopsy (04/16/18) dr hdz (in office) - granuloma around foreign object (glass) Tobacco Smoking/Tobacco Use Status: Former Tobacco Use Alcohol Alcohol Intake: former Substance Use Substance use: Never Substance use type: does not use Vital Signs and Lab Results Lab Results Blood Type / Crossmatch: No Data to Display Complete Blood Count: White Blood Count 5.28 10^3/uL (4.4-10.8) 11/19/20 10:15 11/19/20 Red Blood Count 5.35 10^6/uL (3.93-5.22) H 11/19/20 10:15 11/19/20 Hemoglobin 15.5 g/dL (11.2-15.7) 11/19/20 10:15 11/19/20 Hematocrit 46.2 % (36.0-46.0) H 11/19/20 10:15 11/19/20 Platelet Count 188 10^3/uL (130-400) 11/19/20 10:15 11/19/20 Complete Metabolic Panel: Creatinine 1.0 mg/dL (0.55-1.02) 11/19/20 10:15 11/19/20 Liver Function Panel: Alanine Aminotransferase (ALT/SGPT) 46 U/L (14-59) 11/19/20 10:15 11/19/20 Aspartate Amino Transf (AST/SGOT) 26 U/L (15-37) 11/19/20 10:15 11/19/20 Coagulation Panel: No Data to Display Cardiac Panel: No Data to Display Arterial Blood Gas: No Data to Display Venous Blood Gas: No Data to Display Pancreas Panel: No Data to Display Thyroid Panel: No Data to Display Infectious Disease: Coronavirus (COVID-19)(PCR) Negative (Negative) 12/07/20 09:33 12/07/20 Coronavirus 2019 Source Nasal/nares 12/07/20 09:33 12/07/20 Blood Cultures: No Data to Display Toxicology Panel: No Data to Display Imaging and Studies Imaging and Studies EKG Summary: 05/15: sinus tach. Stress Test Summary: 04/11: significantly reduced exercise capacity, no objective evidence of ischemia. Echocardiogram Summary: 04/11: LVEF 55-60%, no WMA, rv fxn wnl. Pulmonary Function Summary: 01/12: no evidence of obstructive airway dz, no bronchodilator response. Anesthesia Assessment and Plan Anesthesia History Personal History: No History of Anesthesia Complications Family History: No Family History of Anesthesia Complications Exercise Tolerance Exercise Tolerance: Metabolic Equivalents>4 Pertinent Negatives Pertinent Negatives: No Symptoms of GERD Cardiac & Pulmonary Exam Cardiac Exam: Normal S1/S2 Heart Sounds Pulmonary Exam: Clear Bilateral Breath Sounds Airway Exam Known Difficult Airway: No Mallampati Class: 2 Mouth Opening: Normal (> 3cm) Thyromental Distance: Less than 3 cm Neck Range of Motion: Full ROM Neck Circumference: Normal Teeth Condition: Normal Dentition ASA Classification ASA Score: ASA 2 Emergency Case?: No NPO Status NPO Status: NPO Clears >2 hours, Solids >8 hours Anesthesia Plan Resuscitation Status: Full Code Anesthesia Technique: General Anesthesia Airway Planned: LMA Monitors Used: Standard Monitors
[2020-12-09] MEDS: Lactated Ringers 1,000 ML 80 ML IV (09:02)
--- NOTE | 2020-12-09 09:37 | PDOC.DSDIS_ITS ---
Discharge Plan Disposition Patient Disposition: HOME Condition: Good Discharge Details Reason For Visit: (L) KNEE MEDIAL MENISCUS TEAR Attending Provider: Mina Lawrence Primary Care Provider: Cristela Cantu Home Meds and New Rx's Prescriptions: New acetaminophen 500 mg capsule 1,000 mg PO Q8H PRN PRNQty: 90 RF: 0 hydrocodone-acetaminophen 5-325 mg tablet 1 tab PO Q6H PRN (Reason: pain) Qty: 6 RF: 0 ibuprofen 600 mg tablet 600 mg PO TID PRN (Reason: pain) Qty: 30 RF: 0 Continued fluticasone propionate 50 mcg/actuation spray,suspension 1 spray NS BID PRN (Reason: nasal congestion) RF: 0 (DME) blood-glucose meter [ClearGist Ultra2 Meter] Kit See Rx Instructions ea Miscellaneous DAILY Qty: 1 RF: 0 (DME) blood sugar diagnostic Strip 1 ea Miscellaneous TID Qty: 200 RF: 6 (DME) Fritz Aerosol Dickenson Enhancer spacer See Dose Instructions .ROUTE .MEDSUPPLY Qty: 1 RF: 0 ipratropium bromide 42 mcg (0.06 %) spray,non-aerosol 2 spray ELVER TID PRNRF: 0 diclofenac sodium 1 % gel 2 gm TP QID PRN (Reason: pain) Qty: 100 RF: 3 albuterol sulfate [ProAir HFA] 90 mcg/actuation HFA aerosol inhaler 2 puff Inhalation Q4H PRN Qty: 8.5 RF: 5 Jardiance 25 mg tablet 25 mg PO DAILY Qty: 90 RF: 4 (DME) lancets [OneTouch Delica Lancets] 33 gauge misc 1 ea Miscellaneous TID Qty: 200 RF: 4 triamcinolone acetonide 0.5 % cream 1 applic Topical BID Qty: 15 RF: 2 Tresiba FlexTouch U-100 100 unit/mL (3 mL) insulin pen 70 unit SC DAILY Qty: 63 RF: 3 potassium chloride 20 mEq tablet extended release 20 meq PO BID Qty: 60 RF: 11 magnesium oxide 250 mg magnesium tablet 250 mg PO DAILY Qty: 30 RF: 11 doxycycline hyclate 100 mg capsule 200 mg PO ONCE Qty: 2 RF: 0 multivitamin [Multi-Day] 1 EACH tablet 1 ea PO DAILY RF: 0 ascorbic acid (vitamin C) [Vitamin C] 500 MG tablet 500 mg PO BID RF: 0 cyanocobalamin (vitamin B-12) [Vitamin B-12] 1,000 MCG tablet 5,000 mcg PO DAILY RF: 0 primrose 1 cap PO DAILY RF: 0 cholecalciferol (vitamin D3) 1,000 UNIT tablet 1,000 unit PO DAILY RF: 0 mupirocin calcium 2 % cream 1 applic TP TID Qty: 15 RF: 1 insulin lispro [Humalog KwikPen Insulin] 100 unit/mL insulin pen 10 unit SC QAC Qty: 15 RF: 12 (DME) pen needle, diabetic [Unifine Pentips] 31 gauge x 3/16 needle 1 ea Sub-Q AC & HS Qty: 450 RF: 3 furosemide 20 mg tablet 20 mg PO DAILY Qty: 90 RF: 2 loratadine [Claritin] 10 mg tablet 10 mg PO DAILY Qty: 90 RF: 3 nystatin 100,000 unit/gram powder 1 applic Topical BID PRN Qty: 60 RF: 3 zolpidem 10 mg tablet 10 mg PO QHS PRN (Reason: insomnia) Qty: 30 RF: 5 tramadol 50 mg tablet 50 mg PO Q8H MDD 150 Qty: 90 RF: 0 alprazolam 0.5 mg tablet 0.5 mg PO ONCE PRN (Reason: claustrophobia) Qty: 2 RF: 0 gabapentin 600 mg tablet 600 mg PO TID Qty: 60 RF: 2 esomeprazole magnesium [Nexium] 40 mg capsule,delayed release(DR/EC) 40 mg PO BID Qty: 180 RF: 0 pravastatin 40 mg tablet 40 mg PO DAILY Qty: 90 RF: 3 leflunomide 10 mg tablet 10 mg PO DAILY RF: 0 (DME) Knee Support Brace Misc See Rx Instructions .ROUTE .MEDSUPPLY Qty: 1 RF: 0 (DME) cane Device See Rx Instructions .ROUTE .MEDSUPPLY Qty: 1 RF: 0 Remicade 100 mg recon soln 100 mg IV PRN PRNRF: 0 black cohosh 50 mg Capsule 50 mg PO DAILY RF: 0 Discontinued acetaminophen [Tylenol Extra Strength] 500 MG tablet 2 tab PO Q6H PRN PRNQty: 0 RF: 0 Discharge Instructions Stand Alone Forms: [facility] Referrals: Mina Lawrence MD [ [facility] STAFF PHYSICIAN] - Equipment/Supplies: Partial Weight Bearing Crutches Activity:: Activity as Tolerated Remove Dressings/Wound Care:: 72 hours Shower/Bathe:: 72 hours Diet:: As Tolerated Discharge Orders Discharge Orders: Discharge Order (Routine); Ordered 12/09/20 Ordered By: Nhan Díaz DS: Diagnosis Discharge Diagnosis (1) Tear of medial meniscus of left knee: Status: Acute
[2020-12-09] MEDS: ceFAZolin 2 GM/50 ML BAG IVPB (10:22)
[2020-12-09] MEDS: Bupivacaine 0.5% Pres-Free 30 ML VIAL (10:48)
--- NOTE | 2020-12-09 12:00 | ROE_ITS ---
Date of service: 12/09/20 Time of Service: 11:25 Operative Note Operative Note DATE OF PROCEDURE: 12/09/20 PRE-OP DIAGNOSIS: Left Knee Medial Meniscus Tear POST-OP DIAGNOSIS: same PROCEDURE: Left Knee Arthroscopic Partial Medial Menisectomy SURGEON: Mina Lawrence ANESTHESIA TYPE: General LMA/ETT Refer to Anesthesia Record ESTIMATED BLOOD LOSS: 0 PATHOLOGY: none sent TOURNIQUET TIME: 0 COMPLICATIONS: None Patient was transported to: PACU Patient's condition: stable Indications: I have seen Trini in clinic for symptoms of a meniscus tear. This was confirmed based on MRI and exam findings. Nonoperative measures were exhausted but disability and pain persisted. I discussed knee arthroscopy with meniscal intervention with the patient. I reviewed the risks of the procedure to include, but not limited to, bleeding, infection, pain, stiffness, damage to nerves or vessels, recurrence, blood clot. Despite these risks, the patient elected to proceed. Findings: A diagnostic arthroscopy was performed with the following findings: Suprapatellar Pouch: No significant inflammation, No loose bodies Medial Compartment: Complex medial meniscal tear, Intact meniscal root but with some partial tearing, Grade I chondromalacia but no focal full-thickness cartilage loss, No loose bodies Notch: ACL and PCL were intact Lateral Compartment: No meniscal tear, Intact meniscal root, No significant chondromalacia or signs of arthritis, No loose bodies Patellofemoral Compartment: No significant chondromalacia, No apparent patellar maltracking Procedure Description: Trini was greeted in the preoperative holding area where the correct side was identified and marked. The consent was reviewed with the patient and signed. The history and physical was updated. All questions were answered. She was taken back to the operating room. The patient was placed into the supine position on the operating room table. A nonsterile tourniquet was placed high onto the leg but not used. All bony prominences were well padded. Prophylactic antibiotics in the form of Cefazolin were administered. The left leg was then prepped with Chloraprep and draped in a standard fashion with stockinette and extremity drape. A timeout to confirm correct identity, side and site, procedure, allergies, anesthesia, and medical concerns was performed. The leg was placed into a pneumatic leg dubon, [id number]. A standard lateral portal was made at the lateral border of the patella tendon in line with the inferior pole of the patella, soft spot. The skin and deep tissue was incised sharply and the blunt trochar was inserted atraumatically. A diagnostic arthroscopy was performed and the findings are listed above. The suprapatellar pouch had no significant inflammatory change. The patellofemoral articulation showed no articular damage as well as good tracking. The lateral gutter had no loose bodies and the medial gutter had no loose bodies. The knee was brought into some valgus stress in extension to open the medial compartment. A medial portal was made, localized by a spinal needle. The portal was created with an #11 blade through skin and capsule under direct visualization avoiding any meniscal injury. A probe was then inserted into the medial compartment. The medial compartment was fully inspected. The chondral surface of the tibia showed Grade I chondormalacia and the surface of the femur showed no significant chondromalacia but only few areas of fraying. The medial meniscus had a complex meniscal tear. The meniscus had a complex tear of the posterior horn with some extension into the root. The root was intact but there was a small fragment pedunculated off of the root. There is some meniscal degeneration in the area of the complex tear. After evaluation, the meniscus was debrided down to a stab le base using a series of biters and arthroscopic jazmin. It was probed afterwards to confirm that the tear had been removed and the meniscus was stable. The notch was then inspected which showed an intact ACL and an intact PCL. The leg was then brought into a figure of 4 position. The lateral compartment was fully inspected with the arthroscope and a probe. The chondral surface of the lateral femur showed no significant chondromalacia. The chondral surface of the lateral tibia showed no significant chondromalacia. The lateral meniscus had no meniscal tear. The arthroscope was brought back into the suprapatellar pouch and the leg was in full extension. The knee was thoroughly irrigated with the arthroscopic fluid on high flow and pressure. Inflow was stopped and excess fluid was removed. The wounds were closed with 4-0 Nylon. They were dressed with Xeroform, 4x4 gauze, ABD pad, Kerlix and an JARETT wrap. A cryo-cuff was applied. The patient tolerated the procedure well and was returned to the Same Day Surgery area in a stable condition suffering no known complication.
[2020-12-09] MEDS: HYDROcodone 5/Acetaminophen 325 TAB PO (12:01)
--- NOTE | 2020-12-09 12:47 | W.ANESPOSTOP ---
Postoperative Evaluation Date, Time and Location Date Performed: 12/09/20 Time Performed: 12:47 Patient Location: Day Surgery Unit Vital Signs Most Recent Imported Vital Signs: Most Recent Vital Signs Temp Pulse Resp BP Pulse Ox 36.1 C L 66 16 118/80 98 12/09/20 12:15 12/09/20 12:15 12/09/20 12:15 12/09/20 12:15 12/09/20 12:15 Pain Score Most Recent Pain Score: Most Recent Pain Score Pain Level 3 12/09/20 12:15 Assessment Mental Status: Awake (Alert & Oriented to Patient Baseline) Airway and Respiratory Function: Patent airway with normal (patient baseline) respiratory exam Cardiovascular Function: Hemodynamically Stable Hydration Status: Adequately Hydrated Nausea & Vomiting: No Nausea or Vomiting Pain: Pain is tolerable/mild (<5/10) Peripheral Nerve Block: Patient did not receive a nerve block
== END 2020-12-09 13:20 | disposition home or self-care (01) ==
PROVIDERS: Visit Provider Student in an Organized Health Care Education/Training Program
PROC: (CPT 29870; principal; 2020-12-09 11:45)
DX: S83.242A Other tear of medial meniscus, current injury, left knee, initial encounter (principal); E11.9 Type 2 diabetes mellitus without complications; E66.9 Obesity, unspecified; E78.5 Hyperlipidemia, unspecified; X50.1XXA Overexertion from prolonged static or awkward postures, initial encounter
CPT/HCPCS: 29881; J0690; J1100; J1885; J2250; J2405; J2704

== ENCOUNTER → 2020-12-24 11:46 | Outpatient (BNVA) | payer OTHER, MEDICAID, SELFPAY | PROVIDERS: Referring Provider Family Medicine; Visit Provider Student in an Organized Health Care Education/Training Program | DX: Z47.89 Encounter for other orthopedic aftercare (principal); M23.91 Unspecified internal derangement of right knee ==

== ENCOUNTER 2021-01-01 10:00 | Outpatient (RCR) | payer OTHER, MEDICAID, SELFPAY ==
[2020-11-24 00:21] VITALS: BP 105/70; PULSE 78; RESP 16; TEMP 36.5
[2021-01-01] MEDS: Normal Saline Flush 10 ML SYR IVP (10:20)
[2021-01-01] MEDS: methylPREDNISolone SUCC 125 MG VIAL 100 MG IVP (10:20)
[2021-01-01] MEDS: diphenhydrAMINE 25 MG CAP PO (10:20)
[2021-01-01] MEDS: Acetaminophen 325 MG TAB 650 MG PO (10:20)
[2021-01-01 10:27] LABS: Abs Immature Grans 0.02 10^3/uL (0.0-0.06); Absolute Basophil Count 0.04 10^3/uL (0.0-0.2); Absolute Eosinophil Count 0.12 10^3/uL (0.0-0.7); Absolute Lymphocyte Count 1.77 10^3/uL (1.2-3.4); Absolute Monocyte Count 0.51 10^3/uL (0.1-0.8); Absolute Neutrophil Count 2.43 10^3/uL (1.2-6.7); Basophils % 0.8; Eosinophils % 2.5; HCT 46.7 % (36.0-46.0); Immature Grans % 0.4; Lymphocytes % 36.2; MCH 29.6 pg (27.0-33.0); MCHC 34.3 % (32.0-36.0); MCV 86.5 fL (80-95); MPV 10.8 fL (8.0-11.0); Monocytes % 10.4; Neutrophils % 49.7; Nucleated RBC 0 %; Platelet Count 194 10^3/uL (130-400); RDW 12.8 % (11.7-14.6); RDW-SD 40.2 fL; WBC 4.89 10^3/uL (4.4-10.8)
[2021-01-01 10:28] LABS: ESR 23 mm/hr (0-30)
[2021-01-01 10:44] LABS: ALT 64 U/L (14-59); AST 39 U/L (15-37); C-Reactive Protein 0.09 mg/dL (0.0-0.3); Estimated GFR 57.56 (mL/min/1.73m2)
[2021-01-01 11:30] VITALS: BP 108/74; PULSE 88; RESP 16; TEMP 36.1; O2SAT 94
[2021-01-01 11:45] VITALS: BP 127/84; PULSE 101; RESP 18; TEMP 36.6; O2SAT 96
[2021-01-01 12:20] VITALS: BP 116/77; PULSE 96; RESP 19; TEMP 36.6; O2SAT 94
[2021-01-01 12:51] VITALS: BP 106/72; PULSE 95; RESP 16; TEMP 36.8; O2SAT 94
== END 2021-01-23 23:59 | disposition home or self-care (01) ==
LOC: INF 10:00
PROVIDERS: Internal Medicine Rheumatology; Visit Provider Internal Medicine
DX: Z79.899 Other long term (current) drug therapy (principal); M05.7A Rheumatoid arthritis with rheumatoid factor of other specified site without organ or systems involvement
CPT/HCPCS: 36415; 85652; 96365; 96366; 96374; 96375; 96413; 96415; 82565; 84450; 84460; 85025; 86140; J1745; J2930

== ENCOUNTER 2021-01-20 02:33 | Outpatient (CLI) | payer OTHER, MEDICAID, SELFPAY ==
--- NOTE | 2021-01-20 06:30 | DI.MRI_ITS ---
Exam(s) MR LOWER JOINT RT WO EXAM: MR LOWER JOINT RT WO CLINICAL HISTORY: rt knee pain, internal derangement, m23.91 TECHNIQUE: Multiplanar multisequence MRI of the knee was performed. COMPARISON: MR MR LOWER JOINT LT WO from 11/06/2020 FINDINGS: EFFUSION: There is a mild amount of increased joint fluid. There is no Bryan cyst in the popliteal f misha. MARROW:There is no evidence of fracture, bone contusion, nor osteochondral defects.. There are no si gnificant osseous lesions. PATELLOFEMORAL COMPARTMENT: The quadriceps tendon is intact. The patellar ligament is intact. There is some thinning of the retropatellar cartilage. In addition, there is a small defect in super ficial aspect of the retropatellar cartilage over the mid level facet. In addition, there is a small degenerative subarticular cyst in the posterior patella over the lateral facet which measures 1 mill imeter and with mild surrounding intraosseous edema at this level in the posterior patella. There is no unstable osteochondral defect.There is no intraosseous signal to suggest recent patellar dislocat ion. There are no patellar retinacular tears. CRUCIATE LIGAMENTS: There is some increased signal in the anterior cruciate ligament which probably a n element of degenerative change. There is no high-grade tear of this structure.The posterior crucia te ligament is intact. Some fluid is noted posterior to the lower PCL which measures 20 millimeters wide by 12 millimeter craniocaudal by 9 millimeters AP. The PCL medially anterior to this appears un remarkable. An this is interposed between the posterior aspect of the PCL and the posterior capsule (which appears intact). MEDIAL COMPARTMENT/MEDIAL MENISCUS: There is tear in the posterior horn of the medial meniscus which violates the inferior articular surface. There is no bucket-handle configuration. The meniscal root appears intact there is some mild meniscal extrusion to the lateral gutter but without caudal descen t in the gutter. There is no meniscocapsular separation at this level.There is no tear of the anteri or horn evident.. There are no prominent chondral defects nor osteochondral defects and no subarticular marrow edema in the medial femoral condyle. Also no osteophytes. MEDIAL COLLATERAL LIGAMENT: Intrasubstance sprain signal but no high-grade tear. LATERAL COMPARTMENT/LATERAL MENISCUS: There is no evidence of lateral meniscal tear.There are no anna dral defects, osteochondral defects, subarticular marrow edema, nor osteophytes evident.There is no a bnormal signal in the tibial plateau. ILIOTIBIAL BAND: Intact LATERAL COLLATERAL LIGAMENT COMPLEX: The fibular collateral ligament is intact. The biceps femoris t endon is intact.Popliteus muscle and tendon are intact. IMPRESSION: 1. Main finding here is a complex tear of the posterior horn of medial meniscus mild extrusion. No b ucket-handle configuration. The anterior horn appears intact. There are no tears of the lateral men iscus. 2. No cruciate ligament tears but there does appear to be an intra-articular ganglion cyst immediatel y posterior to the lower half of the PCL which measures 2.0 x 1.2 x 0.9 cm. 3. Some thinning of the retropatellar cartilage is noted as well as a small superficial fissure withi n the retropatellar cartilage medial aspect and some subarticular degenerative changes in the lateral facet of the patella. There are no patellar retinacular tears. No osteochondral defects at this le jillian. DATA REPOSITORY:
== END 2021-01-20 02:53 ==
PROVIDERS: Visit Provider Student in an Organized Health Care Education/Training Program
DX: S83.231A Complex tear of medial meniscus, current injury, right knee, initial encounter (principal); M23.91 Unspecified internal derangement of right knee; M67.461 Ganglion, right knee; M17.11 Unilateral primary osteoarthritis, right knee; X58.XXXA Exposure to other specified factors, initial encounter
CPT/HCPCS: 73721

== ENCOUNTER 2021-01-20 02:34 | Outpatient (CLI) | payer OTHER, MEDICAID, SELFPAY ==
--- NOTE | 2021-01-20 06:30 | DI.CT_ITS ---
Exam(s) CT CERVICAL SPINE WO EXAM: CT CERVICAL SPINE WO CLINICAL HISTORY: non responding to conservative measures,NECK PAIN, M54.2. TECHNIQUE: Imaging Protocol: Axial computed tomography images with coronal and sagittal reformatted images were created and reviewed COMPARISON: CT CT HEAD CERVICAL SPINE WO from 05/02/2020 FINDINGS: CERVICAL SPINE: There is no evidence of fracture nor listhesis. No significant prevertebral soft tissue swelling. N o facet malalignment evident. No significant osseous lesions evident. There is straightening of the cervical curvature again noted. There is chronic disc space narrowing a t C5-6 level with unilateral Luschka joint osteophytes at this level which are evident on the right s walter. There is also moderate disc space narrowing at C4-5 level, without prominent Luschka joint oste ophytes. Mild disc space narrowing at C6-7 level, also at level Luschka without Luschka joint osteoph ytes. There is no evidence of fracture or significant listhesis. Facet joint degenerative changes are noted at multiple levels. No osseous lesions.. No prominent spinal canal stenosis. IMPRESSION: No fracture nor listhesis. Disc space findings similar to the CT scan of April 2020 as well as si milar straightening of the cervical curvature. Recommend follow-up MRI to determine if there disc he rniations. There is multilevel facet arthropathy. No facet malalignment. No osseous lesions eviden t. RADIATION DOSE DELIVERED: 474.85mGy.cm Total DLP DATA REPOSITORY: All CT scans at this facility are submitted to the National Radiology Data Registry (NRDR) Dose Index Registry (DIR) with the [employer] (ACR). RADIATION OPTIMIZATION: All CT scans at this facility use at least one of these dose optimization te chniques: automated exposure control; mA and/or kV adjustment per patient size (includes targeted exa ms where dose is matched to clinical indication); or iterative reconstruction.
== END 2021-01-20 02:54 ==
DX: M47.812 Spondylosis without myelopathy or radiculopathy, cervical region (principal)
CPT/HCPCS: 72125

== ENCOUNTER 2021-02-09 02:51 | Outpatient (RCR) | payer OTHER, MEDICAID, SELFPAY ==
[2021-01-24 00:17] VITALS: BP 106/72; PULSE 95; RESP 16; TEMP 36.8
[2021-02-09] MEDS: Acetaminophen 325 MG TAB 650 MG PO (11:14)
[2021-02-09] MEDS: methylPREDNISolone SUCC 125 MG VIAL 100 MG IVP (11:14)
[2021-02-09] MEDS: diphenhydrAMINE 25 MG CAP PO (11:14)
[2021-02-09] MEDS: Normal Saline Flush 10 ML SYR IVP (11:34)
[2021-02-09 11:40] VITALS: BP 119/81; PULSE 92; RESP 16; TEMP 36; O2SAT 95
[2021-02-09 11:55] VITALS: BP 99/70; PULSE 83; RESP 17; TEMP 36.7; O2SAT 96
[2021-02-09 12:12] VITALS: BP 113/78; PULSE 81; RESP 16; TEMP 36.1; O2SAT 97
[2021-02-09 12:28] VITALS: BP 114/78; PULSE 87; RESP 16; TEMP 36.7; O2SAT 97
[2021-02-09 12:44] VITALS: BP 111/80; PULSE 84; RESP 16; TEMP 36.8; O2SAT 97
[2021-02-09 13:15] VITALS: BP 97/65; PULSE 94; RESP 17; TEMP 36.7; O2SAT 96
== END 2021-02-23 23:59 | disposition home or self-care (01) ==
LOC: INF 02:51
PROVIDERS: Visit Provider Internal Medicine
DX: M06.0A Rheumatoid arthritis without rheumatoid factor, other specified site (principal); K21.9 Gastro-esophageal reflux disease without esophagitis
CPT/HCPCS: 96365; 96366; 96374; 96375; 96413; 96415; J1745; J2930

== ENCOUNTER → 2021-02-18 10:51 | Outpatient (BNVA) | payer OTHER, MEDICAID, SELFPAY | PROVIDERS: Visit Provider Student in an Organized Health Care Education/Training Program | DX: S83.231D Complex tear of medial meniscus, current injury, right knee, subsequent encounter (principal); X58.XXXD Exposure to other specified factors, subsequent encounter ==

== ENCOUNTER 2021-02-26 04:39 | Outpatient (CLI) | payer OTHER, MEDICAID, SELFPAY ==
--- NOTE | 2021-02-26 07:15 | DI.MRI_ITS ---
Exam(s) MR CERVICAL SPINE WO EXAM: MR CERVICAL SPINE WO CLINICAL HISTORY: Evaluate for cervical disc herniation, f/u CT,neck pain, m54.2. TECHNIQUE: Multiplanar multisequence MRI was performed. COMPARISON: MR MRI - CERVICAL SPINE WO CONT from 11/27/2012 FINDINGS: MR examination of the cervical spine was performed according to the usual protocol. No significant b pilar signal abnormality seen. Images obtained through the posterior fossa are unremarkable. There is a mid cervical kyphosis. There is prominence of the disc osteophyte complex at multiple lev els posteriorly, most marked at C 4 5 and C5-6. There is neural foraminal narrowing noted at all lev els throughout the cervical region excluding the C2-3 level, secondary to facet and endplate hypertro phic changes.. There is no focal disc herniation noted in the region surveyed. There is mild narrowing of the AP diameter of the central spinal canal at C4-5, C5-6, and C6-7. Ther e is visible CSF anterior and posterior to the cord throughout this region, no definite central canal spinal stenosis. Spinal cord is of normal diameter and shows normal signal throughout. IMPRESSION: Multilevel neural foraminal narrowing involving the entire cervical region sparing C2-3. Prominence of disc osteophyte complex, particularly at C4-5, C5-6, and C6-7. No focal disc herniatio n or central canal spinal stenosis. DATA REPOSITORY:
== END 2021-02-26 04:59 ==
DX: M54.2 Cervicalgia (principal); M99.71 Connective tissue and disc stenosis of intervertebral foramina of cervical region; M25.78 Osteophyte, vertebrae
CPT/HCPCS: 72141

== ENCOUNTER 2021-03-23 11:00 | Outpatient (RCR) | payer OTHER, MEDICAID, SELFPAY ==
[2021-02-24 00:08] VITALS: BP 97/65; PULSE 94; RESP 17; TEMP 36.7
[2021-03-23] MEDS: methylPREDNISolone SUCC 125 MG VIAL 100 MG IVP (11:16)
[2021-03-23] MEDS: diphenhydrAMINE 25 MG CAP PO (11:16)
[2021-03-23] MEDS: Acetaminophen 325 MG TAB 650 MG PO (11:16)
[2021-03-23] MEDS: Normal Saline Flush 10 ML SYR IVP (11:17)
[2021-03-23 11:30] LABS: Abs Immature Grans 0.01 10^3/uL (0.0-0.06); Absolute Basophil Count 0.05 10^3/uL (0.0-0.2); Absolute Eosinophil Count 0.15 10^3/uL (0.0-0.7); Absolute Lymphocyte Count 1.63 10^3/uL (1.2-3.4); Absolute Monocyte Count 0.51 10^3/uL (0.1-0.8); Absolute Neutrophil Count 2.33 10^3/uL (1.2-6.7); Basophils % 1.1; Eosinophils % 3.2; HCT 47.6 % (36.0-46.0); HGB 16.1 g/dL (11.2-15.7); Immature Grans % 0.2; Lymphocytes % 34.8; MCH 29.5 pg (27.0-33.0); MCHC 33.8 % (32.0-36.0); MCV 87.2 fL (80-95); MPV 10.6 fL (8.0-11.0); Monocytes % 10.9; Neutrophils % 49.8; Nucleated RBC 0 %; Platelet Count 193 10^3/uL (130-400); RBC 5.46 10^6/uL (3.93-5.22); RDW 13.2 % (11.7-14.6); RDW-SD 41.5 fL; WBC 4.68 10^3/uL (4.4-10.8)
[2021-03-23 11:32] LABS: ESR 25 mm/hr (0-30)
[2021-03-23 11:35] VITALS: BP 109/75; PULSE 95; RESP 18; TEMP 36.8; O2SAT 94
[2021-03-23 11:39] LABS: ALT 93 U/L (14-59); AST 72 U/L (15-37); Estimated GFR 57.56 (mL/min/1.73m2)
[2021-03-23 11:43] LABS: C-Reactive Protein < 0.05 mg/dL (0.0-0.3)
[2021-03-23 12:04] VITALS: BP 134/75; PULSE 84; RESP 18; TEMP 36.5; O2SAT 95
[2021-03-23 12:20] VITALS: BP 140/79; PULSE 96; RESP 18; TEMP 36.3; O2SAT 94
[2021-03-23 13:50] VITALS: BP 96/69; PULSE 92; RESP 18; TEMP 36.4; O2SAT 94
== END 2021-03-25 23:59 | disposition home or self-care (01) ==
LOC: INF 11:00
PROVIDERS: Internal Medicine Rheumatology; Visit Provider Internal Medicine
DX: Z79.899 Other long term (current) drug therapy (principal); M06.00 Rheumatoid arthritis without rheumatoid factor, unspecified site
CPT/HCPCS: 36415; 85652; 96365; 96366; 96374; 96375; 96413; 96415; 82565; 84450; 84460; 85025; 86140; J1745; J2930

== ENCOUNTER → 2021-03-25 12:58 | Outpatient (BNVA) | payer MEDICARE, MEDICAID, SELFPAY | DX: Z01.818 Encounter for other preprocedural examination (principal); S83.231D Complex tear of medial meniscus, current injury, right knee, subsequent encounter; X58.XXXD Exposure to other specified factors, subsequent encounter; E11.9 Type 2 diabetes mellitus without complications ==

== ENCOUNTER 2021-03-29 03:05 | Outpatient (CLI) | payer MEDICARE, MEDICAID, SELFPAY ==
[2021-03-29 11:02] LABS: Source Nasal/Nares
[2021-03-29 18:57] LABS: COVID-19 PCR Negative (Negative)
== END 2021-03-29 03:06 | disposition home or self-care (01) ==
LOC: LBO 03:06
PROVIDERS: Visit Provider Student in an Organized Health Care Education/Training Program
DX: Z20.822 Contact with and (suspected) exposure to COVID-19 (principal); Z01.818 Encounter for other preprocedural examination
CPT/HCPCS: 87635

== ENCOUNTER 2021-03-30 07:46 | Day surgery (SDC) | payer MEDICARE, MEDICAID, SELFPAY ==
[2021-03-30] VITALS (10 sets, daily range): BP systolic 90–122; BP diastolic 64–86; PULSE 68–96; RESP 12–21; TEMP 36–36.3; O2SAT 95–100; BMI 38.2
[2021-03-30] MEDS: Celecoxib 200 MG CAP 400 MG PO (08:12)
[2021-03-30] MEDS: Acetaminophen 500 MG TAB 1000 MG PO (08:12)
[2021-03-30] MEDS: Gabapentin 300 MG CAP PO (08:12)
[2021-03-30] MEDS: Lactated Ringers 1,000 ML 80 ML IV (08:33)
--- NOTE | 2021-03-30 08:44 | W.ANESPRE ---
General Info Date of Service Date Performed: 03/30/21 Height: 5 ft Weight: 88.9 kg Body Mass Index (BMI): 38.2 Surgical Procedure: Operation Date: 03/30/21 09:55 Proposed Procedures Side Surgeon p Knee Arthroscopy (R) Partial Medial Meniscectomy Right Mina Lawrence MD Meds Allergies and Home Medications Allergies Allergy/AdvReac Type Severity Reaction Status Date / Time divalproex sodium AdvReac Intermediate MENTAL, Verified 03/30/21 08:50 [From Depakote] PHYSICAL REACTIONS lithium AdvReac Intermediate MENTAL, Verified 03/30/21 08:50 PHYSICAL REACTIONS methotrexate AdvReac Intermediate Rash Verified 03/30/21 08:50 simvastatin AdvReac Mild MYALGIAS Verified 03/30/21 08:50 thioridazine AdvReac Mild PSYCHOTIC Verified 03/30/21 08:50 adhesive tape AdvReac Verified 03/30/21 08:50 Home Medication Medication Instructions Recorded multivitamin [Multi-Day] 1 ea PO DAILY 09/29/12 [place] 1 cap PO DAILY 05/29/14 cyanocobalamin (vitamin B-12) 5,000 mcg PO DAILY 05/29/14 [Vitamin B-12] cholecalciferol (vitamin D3) 1,000 unit PO DAILY 10/09/15 inhalational spacing device #1 each 05/01/18 mupirocin calcium 2 % topical cream 1 applic TP TID #15 gm 02/27/19 ipratropium bromide 42 mcg (0.06 2 spray ELVER TID PRN ml 03/04/19 %) nasal spray diclofenac sodium 1 % topical gel 2 gm TP QID PRN #100 gm 08/26/19 lancets 33 gauge #200 ea 09/30/19 leflunomide 10 mg PO DAILY 11/21/19 black cohosh 50 mg PO DAILY 05/02/20 infliximab 100 mg intravenous 100 mg IV PRN PRN 05/05/20 solution insulin lispro 100 unit/mL 10 unit SC QAC #15 ml 05/13/20 subcutaneous pen pen needle, diabetic 31 gauge x #450 each 05/23/2009/08 loratadine 10 mg tablet 10 mg PO DAILY #90 tab-cap 06/15/20 nystatin 100,000 unit/gram topical 1 applic TOPICAL BID PRN #60 gm 06/15/20 powder insulin degludec 100 unit/mL (3 70 unit SC DAILY #63 ml 07/22/20 mL) subcutaneous pen fluticasone propionate 50 1 spray NS BID PRN ml 10/16/20 mcg/actuation nasal spray,suspension blood sugar diagnostic #200 strip 10/23/20 blood-glucose meter #1 kit 10/23/20 pravastatin 40 mg tablet 40 mg PO DAILY #90 tab-cap 10/28/20 acetaminophen 1,000 mg PO Q8H PRN PRN #90 cap 12/09/20 empagliflozin 25 mg tablet 25 mg PO DAILY #90 cap 12/23/20 gabapentin 600 mg tablet 600 mg PO TID #90 tab 01/12/21 zolpidem 10 mg tablet 10 mg PO QHS PRN #30 tab 01/18/21 magnesium oxide 250 mg PO DAILY #30 tab 02/04/21 potassium chloride 20 mEq 20 meq PO BID #60 tab 02/04/21 tablet,extended release triamcinolone acetonide 0.5 % 1 applic TOPICAL BID #15 gm 02/04/21 topical cream Nexium 40 mg capsule,delayed 40 mg PO BID #180 tab-cap NS 02/08/21 release albuterol sulfate 90 mcg/actuation 2 puff INHALATION Q4H PRN #8.5 gm 02/15/21 aerosol inhaler lorazepam 0.5 mg tablet 0.5 mg PO DAILY PRN #2 tab 02/15/21 furosemide 20 mg tablet 20 mg PO DAILY #90 tab-cap 03/29/21 tramadol 50 mg tablet 50 mg PO Q8H #90 tab MDD 150 03/29/21 Current Visit Medications: Current Medications Generic Name Dose Route Start Last Admin Trade Name Freq PRN Reason Stop Dose Admin Acetaminophen 1,000 mg 03/30/21 06:00 03/30/21 08:12 Acetaminophen 500 Mg Tab PO 03/30/21 16:00 1,000 mg PREOP KILEY Administration Celecoxib 400 mg 03/30/21 06:00 03/30/21 08:12 Celecoxib 200 Mg Cap PO 03/30/21 16:00 400 mg PREOP KILEY Administration Gabapentin 300 mg 03/30/21 06:00 03/30/21 08:12 Gabapentin 300 Mg Cap PO 03/30/21 16:00 300 mg PREOP KILEY Administration Ringer's Solution 1,000 mls @ 80 mls/hr 03/30/21 06:00 03/30/21 08:33 IV 04/28/21 23:59 80 mls/hr INFUSION KILEY Administration Cefazolin Sodium/Dextrose 2 gm in 50 mls @ 100 mls/hr 03/30/21 06:00 Ancef Duplex IVPB 04/28/21 23:59 PREOP KILEY IV Miscellaneous Supplies 1 each 03/30/21 06:00 Iv Access IV 04/28/21 23:59 DIRECTED KILEY Sodium Chloride 0 ml 03/30/21 06:00 Normal Saline Flush 10 Ml Syr IV 04/28/21 23:59 PRN PRN Sodium Chloride 0 ml 03/30/21 06:00 Normal Saline 10 Ml Vial IJ 04/28/21 23:59 DIRECTED PRN Sterile Water 0 ml 03/30/21 06:00 Water,Injection,Sterile 10 Ml Vial IJ 04/28/21 23:59 DIRECTED PRN PFSH Active Problems Active Problems: Problem Status Onset Code Complex tear of medial meniscus of right knee as current injury S83.231A Cervical pain (neck) M54.2 Internal derangement of right knee M23.91 Tear of medial meniscus of left knee S83.242A Patellofemoral syndrome of both knees M22.2X1, M22.2X2 Chronic pain syndrome G89.4 Amygdalolith J35.8 Dysphonia R49.0 Exertional dyspnea R06.00 Sore throat J02.9 Hoarseness R49.0 Dysphagia R13.10 Contact dermatitis L25.9 Monilial intertrigo B37.2 Strep throat J02.0 Vaginitis N76.0 Acute tonsillitis J03.90 Abdominal pain R10.9 Carpal tunnel syndrome G56.00 Depressed bipolar I disorder F31.9 Status post laparoscopic hysterectomy Z90.710 History of tachycardia Z87.898 Internal derangement of left knee M23.92 Undifferentiated inflammatory arthritis M06.4 Calcific tendinitis of right shoulder M75.31 Retinopathy 12/01/16 H35.00 Primary fibromyalgia syndrome M79.7 Posterior vitreous detachment of left eye 08/16/16 H43.812 Obesity E66.9 Neck pain 08/12/14 M54.2 Migraine G43.909 Insomnia G47.00 Hyperlipidemia 10/02/12 E78.5 Gastroesophageal reflux disease K21.9 Diabetes mellitus 10/02/12 E11.9 Depression 03/16/17 F32.9 Chronic pain syndrome G89.4 Diabetes type 2, controlled E11.9 Hypokalemia E87.6 Retinitis H30.90 Bipolar disorder F31.9 Medical History Medical History Acute tonsillitis Amygdalolith Bipolar disorder Doing well off risperadone. Will leave her off and continue Prozac. Calcific tendinitis of right shoulder Cervical pain (neck) Chronic pain syndrome Chronic pain syndrome Depression (03/16/17) Diabetes mellitus (10/02/12) Diabetes type 2, controlled Dysphonia Exertional dyspnea Gastroesophageal reflux disease + EGD for inflammation (11/27) Hyperlipidemia (10/02/12) Due for recheck of Lipids and A1C along with CBC/CMP... Insomnia Internal derangement of left knee Follow up with Dr. Lawrence Migraine Neck pain (08/12/14) muscle spasm 2014 functional [place] [facility] [place] Posterior vitreous detachment of left eye (08/16/16) [facility]- VITREOUS CELLS AND CHOROIDAL LESIONS IN BOTH EYES. 08/16/16 Primary fibromyalgia syndrome fibromyalgia Retinopathy (12/01/16) 11/18/16 [facility] 10/15/18 [facility] Sleep apnea Undifferentiated inflammatory arthritis Vitamin B12 deficiency (05/29/14) resolved on po B12 Surgical History Surgical History [place]ste[place], [place]roscopic (~01/2011[place] [facility] [place] Open Carpal Tunnel release (~2000) right Status post excisional biopsy (04/16/18) dr hdz (in office) - granuloma around foreign object (glass) Tear of medial meniscus of left knee S/P Arthroscopy: 12/09/2020 Tobacco Smoking/Tobacco Use Status: Former Tobacco Use Alcohol Alcohol Intake: former Substance Use Substance use: Never Substance use type: does not use Vital Signs and Lab Results Vital Signs Most Recent Vital Signs in EMR: Most Recent Vital Signs Temp Pulse Resp BP Pulse Ox 36.1 C L 89 18 122/86 96 03/30/21 07:58 03/30/21 07:58 03/30/21 07:58 03/30/21 07:58 03/30/21 07:58 Lab Results Blood Type / Crossmatch: No Data to Display Complete Blood Count: White Blood Count 4.68 10^3/uL (4.4-10.8) 03/23/21 11:10 03/23/21 Red Blood Count 5.46 10^6/uL (3.93-5.22) H 03/23/21 11:10 03/23/21 Hemoglobin 16.1 g/dL (11.2-15.7) H 03/23/21 11:10 03/23/21 Hematocrit 47.6 % (36.0-46.0) H 03/23/21 11:10 03/23/21 Platelet Count 193 10^3/uL (130-400) 03/23/21 11:10 03/23/21 Complete Metabolic Panel: Creatinine 1.0 mg/dL (0.55-1.02) 03/23/21 11:10 03/23/21 Estimated GFR/1.73 m2 57.56 (mL/min/1.73m2) 03/23/21 11:10 03/23/21 C-Reactive Protein < 0.05 mg/dL (0.0-0.3) 03/23/21 11:10 03/23/21 Liver Function Panel: Alanine Aminotransferase (ALT/SGPT) 93 U/L (14-59) H 03/23/21 11:10 03/23/21 Aspartate Amino Transf (AST/SGOT) 72 U/L (15-37) H 03/23/21 11:10 03/23/21 Coagulation Panel: No Data to Display Cardiac Panel: No Data to Display Arterial Blood Gas: No Data to Display Venous Blood Gas: No Data to Display Pancreas Panel: No Data to Display Thyroid Panel: No Data to Display Infectious Disease: Coronavirus (COVID-19)(PCR) Negative (Negative) 03/29/21 10:36 03/29/21 Coronavirus 2019 Source Nasal/Nares 03/29/21 10:36 03/29/21 Blood Cultures: No Data to Display Toxicology Panel: No Data to Display Imaging and Studies Imaging and Studies EKG Summary: 05/15: sinus tach. Stress Test Summary: 04/11: significantly reduced exercise capacity, no objective evidence of ischemia. Echocardiogram Summary: 04/11: LVEF 55-60%, no WMA, rv fxn wnl. Pulmonary Function Summary: 01/12: no evidence of obstructive airway disease, no bronchodilator response. Anesthesia Assessment and Plan Anesthesia History Personal History: No History of Anesthesia Complications Family History: No Family History of Anesthesia Complications Exercise Tolerance Exercise Tolerance: Metabolic Equivalents>4 Cardiac & Pulmonary Exam Cardiac Exam: Normal S1/S2 Heart Sounds Pulmonary Exam: Clear Bilateral Breath Sounds Airway Exam Known Difficult Airway: No Mallampati Class: 2 Mouth Opening: Normal (> 3cm) Thyromental Distance: Less than 3 cm Neck Range of Motion: Full ROM Neck Circumference: Normal Teeth Condition: Normal Dentition and Loose or Chipped (Left front) ASA Classification ASA Score: ASA 3 Emergency Case?: No NPO Status NPO Status: NPO Clears >2 hours, Solids >8 hours Anesthesia Plan Resuscitation Status: Full Code Anesthesia Technique: General Anesthesia Airway Planned: LMA Monitors Used: Standard Monitors
--- NOTE | 2021-03-30 09:12 | HPE_ITS ---
Date of service: 03/30/21 Time of Service: 09:12 Assessment and Plan Assessment and plan (1) Complex tear of medial meniscus of right knee as current injury: Status: Acute Assessment and plan: Trini is a 55-year-old who has a known medial meniscal tear of her right knee. She has failed nonoperative treatment options proceed with knee arthroscopy partial medial meniscectomy. I reviewed the risk of the procedure to include bleeding, infection, pain, stiffness, retear, worsening arthritis, osteonecrosis, blood clot, need for repeat procedures. Despite these risks, she elects to proceed. Qualifiers: Encounter type: subsequent encounter Qualified Code(s): S83.231D - Com plex tear of medial meniscus, current injury, right knee, subsequent encounter History of Present Illness History of Present Illness Chief Complaint: Right medial meniscus tear Narrative: 55-year-old who has had right knee pain. MRI confirmed the diagnosis of a medial meniscal tear of the right knee. She has failed conservative options and desires to be treated with surgery. She has had no sick contacts. No chest pain or shortness of breath. She had a successful similar procedure on the left. Review of Systems All systems reviewed & are unremarkable except as noted in HPI and below PFSH Medical History Acute tonsillitis Amygdalolith Bipolar disorder Doing well off risperadone. Will leave her off and continue Prozac. Calcific tendinitis of right shoulder Cervical pain (neck) Chronic pain syndrome Chronic pain syndrome Depression (03/16/17) Diabetes mellitus (10/02/12) Diabetes type 2, controlled Dysphonia Exertional dyspnea Gastroesophageal reflux disease + EGD for inflammation (11/27) Hyperlipidemia (10/02/12) Due for recheck of Lipids and A1C along with CBC/CMP... Insomnia Internal derangement of left knee Follow up with Dr. Lawrence Migraine Neck pain (08/12/14) muscle spasm 2014 functional [place] [facility] [place]esity Posterior vitreous detachment of left eye (08/16/16) [facility]- VITREOUS CELLS AND CHOROIDAL LESIONS IN BOTH EYES. 08/16/16 Primary fibromyalgia syndrome fibromyalgia Retinopathy (12/01/16) 11/18/16 [facility] 10/15/18 [facility]kb Sleep apnea Undifferentiated inflammatory arthritis Vitamin B12 deficiency (05/29/14) resolved on po B12 Surgical History Hysterectomy, Laproscopic (~01/2011) [place] [facility] [place] Open Carpal Tunnel release (~2000) right Status post excisional biopsy (04/16/18) dr hdz (in office) - granuloma around foreign object (glass) Tear of medial meniscus of left knee S/P Arthroscopy: 12/09/2020 Family History Mother Diabetes Hyperlipidemia Sister No problems noted. Brother Asthma Brother No problems noted. Brother No problems noted. Grandfather Heart disease Grandfather No problems noted. Grandmother Heart disease Grandmother No problems noted. Son Asthma Son Asthma Son No problems noted. 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: [employer] Current gender identity: female Duration: 15-30 minutes/day Frequency: 1-2 times per week Theodora/Anglican: Pentecostalism Do you feel safe at home: Yes Meds Allergies and Home Medications Allergies Allergy/AdvReac Type Severity Reaction Status Date / Time divalproex sodium AdvReac Intermediate MENTAL, Verified 03/30/21 08:50 [From Depakote] PHYSICAL REACTIONS lithium AdvReac Intermediate MENTAL, Verified 03/30/21 08:50 PHYSICAL REACTIONS methotrexate AdvReac Intermediate Rash Verified 03/30/21 08:50 simvastatin AdvReac Mild MYALGIAS Verified 03/30/21 08:50 thioridazine AdvReac Mild PSYCHOTIC Verified 03/30/21 08:50 adhesive tape AdvReac Verified 03/30/21 08:50 Home Medications Medication Instructions Recorded Confirmed Type multivitamin [Multi-Day] 1 ea PO DAILY 09/29/12 03/30/21 History [place] 1 cap PO DAILY 05/29/14 03/30/21 History cyanocobalamin (vitamin B-12) 5,000 mcg PO DAILY 05/29/14 03/30/21 History [Vitamin B-12] cholecalciferol (vitamin D3) 1,000 unit PO DAILY 10/09/15 03/30/21 History inhalational spacing device #1 each 05/01/18 03/29/21 Rx mupirocin calcium 2 % topical cream 1 applic TP TID #15 gm 02/27/19 03/30/21 Rx ipratropium bromide 42 mcg (0.06 2 spray ELVER TID PRN ml 03/04/19 03/30/21 History %) nasal spray diclofenac sodium 1 % topical gel 2 gm TP QID PRN #100 gm 08/26/19 03/30/21 Rx lancets 33 gauge #200 ea 09/30/19 03/30/21 Rx leflunomide 10 mg PO DAILY 11/21/19 03/30/21 History black cohosh 50 mg PO DAILY 05/02/20 03/30/21 History infliximab 100 mg intravenous 100 mg IV PRN PRN 05/05/20 03/30/21 History solution insulin lispro 100 unit/mL 10 unit SC QAC #15 ml 05/13/20 03/30/21 Rx subcutaneous pen pen needle, diabetic 31 gauge x #450 each 05/23/20 03/30/21 Rx 3/16 loratadine 10 mg tablet 10 mg PO DAILY #90 tab-cap 06/15/20 03/30/21 Rx nystatin 100,000 unit/gram topical 1 applic TOPICAL BID PRN #60 gm 06/15/20 03/30/21 Rx powder insulin degludec 100 unit/mL (3 70 unit SC DAILY #63 ml 07/22/20 03/30/21 Rx mL) subcutaneous pen fluticasone propionate 50 1 spray NS BID PRN ml 10/16/20 03/30/21 History mcg/actuation nasal spray,suspension blood sugar diagnostic #200 strip 10/23/20 03/29/21 Rx blood-glucose meter #1 kit 10/23/20 03/29/21 Rx pravastatin 40 mg tablet 40 mg PO DAILY #90 tab-cap 10/28/20 03/30/21 Rx acetaminophen 1,000 mg PO Q8H PRN PRN #90 cap 12/09/20 03/30/21 Rx empagliflozin 25 mg tablet 25 mg PO DAILY #90 cap 12/23/20 03/30/21 Rx gabapentin 600 mg tablet 600 mg PO TID #90 tab 01/12/21 03/30/21 Rx zolpidem 10 mg tablet 10 mg PO QHS PRN #30 tab 01/18/21 03/30/21 Rx magnesium oxide 250 mg PO DAILY #30 tab 02/04/21 03/30/21 Rx potassium chloride 20 mEq 20 meq PO BID #60 tab 02/04/21 03/30/21 Rx tablet,extended release triamcinolone acetonide 0.5 % 1 applic TOPICAL BID #15 gm 02/04/21 03/30/21 Rx topical cream Nexium 40 mg capsule,delayed 40 mg PO BID #180 tab-cap NS 02/08/21 03/30/21 Rx release albuterol sulfate 90 mcg/actuation 2 puff INHALATION Q4H PRN #8.5 gm 02/15/21 03/30/21 Rx aerosol inhaler lorazepam 0.5 mg tablet 0.5 mg PO DAILY PRN #2 tab 02/15/21 03/30/21 Rx furosemide 20 mg tablet 20 mg PO DAILY #90 tab-cap 03/29/21 03/30/21 Rx tramadol 50 mg tablet 50 mg PO Q8H #90 tab MDD 150 03/29/21 03/30/21 Rx Exam Resp Effort & Inspection: normal respiratory effort Auscultation: clear to auscultation bilaterally Cardio Rate: regular rate Rhythm: regular rhythm Results Last Vital Signs Temp 36.1 C L 03/30/21 07:58 Pulse 89 03/30/21 07:58 Resp 18 03/30/21 07:58 BP 122/86 03/30/21 07:58 Pulse Ox 96 03/30/21 07:58
[2021-03-30] MEDS: ceFAZolin 2 GM/50 ML BAG IVPB (09:13)
--- NOTE | 2021-03-30 09:33 | W.PM.DSUDISC ---
Discharge Plan Disposition Patient Disposition: HOME Condition: Good Discharge Details Reason For Visit: Right knee internal derangement Attending Provider: Mina Lawrence Primary Care Provider: Cristela Cantu Home Meds and New Rx's Prescriptions: New acetaminophen 500 mg tablet 500 mg PO Q8H PRN (Reason: pain) Qty: 60 RF: 2 hydrocodone-acetaminophen 5-325 mg tablet 1 tab PO Q6H PRN (Reason: Severe Pain (Scale Score 7-10)) Qty: 6 RF: 0 ibuprofen 600 mg tablet 600 mg PO TID PRN (Reason: pain) Qty: 60 RF: 0 Continued fluticasone propionate 50 mcg/actuation spray,suspension 1 spray NS BID PRN (Reason: nasal congestion) RF: 0 (DME) blood-glucose meter [Medocity Ultra2 Meter] Kit See Rx Instructions ea Miscellaneous DAILY Qty: 1 RF: 0 (DME) blood sugar diagnostic Strip 1 ea Miscellaneous TID Qty: 200 RF: 6 zolpidem 10 mg tablet 10 mg PO QHS PRN (Reason: insomnia) Qty: 30 RF: 5 (DME) Fritz Aerosol [place] Enhancer spacer See Dose Instructions .ROUTE .MEDSUPPLY Qty: 1 RF: 0 ipratropium bromide 42 mcg (0.06 %) spray,non-aerosol 2 spray ELVER TID PRNRF: 0 diclofenac sodium 1 % gel 2 gm TP QID PRN (Reason: pain) Qty: 100 RF: 3 (DME) lancets [OneTouch Delica Lancets] 33 gauge misc 1 ea Miscellaneous TID Qty: 200 RF: 4 Tresiba FlexTouch U-100 100 unit/mL (3 mL) insulin pen 70 unit SC DAILY Qty: 63 RF: 3 multivitamin [Multi-Day] 1 EACH tablet 1 ea PO DAILY RF: 0 cyanocobalamin (vitamin B-12) [Vitamin B-12] 1,000 MCG tablet 5,000 mcg PO DAILY RF: 0 [place] 1 cap PO DAILY RF: 0 cholecalciferol (vitamin D3) 1,000 UNIT tablet 1,000 unit PO DAILY RF: 0 mupirocin calcium 2 % cream 1 applic TP TID Qty: 15 RF: 1 insulin lispro [Humalog KwikPen Insulin] 100 unit/mL insulin pen 10 unit SC QAC Qty: 15 RF: 12 (DME) pen needle, diabetic [Unifine Pentips] 31 gauge x 3/16 needle 1 ea Sub-Q AC & HS Qty: 450 RF: 3 loratadine [Claritin] 10 mg tablet 10 mg PO DAILY Qty: 90 RF: 3 nystatin 100,000 unit/gram powder 1 applic Topical BID PRN Qty: 60 RF: 3 pravastatin 40 mg tablet 40 mg PO DAILY Qty: 90 RF: 3 Jardiance 25 mg tablet 25 mg PO DAILY Qty: 90 RF: 4 gabapentin 600 mg tablet 600 mg PO TID Qty: 90 RF: 2 magnesium oxide 250 mg magnesium tablet 250 mg PO DAILY Qty: 30 RF: 11 triamcinolone acetonide 0.5 % cream 1 applic Topical BID Qty: 15 RF: 2 potassium chloride 20 mEq tablet extended release 20 meq PO BID Qty: 60 RF: 11 esomeprazole magnesium [Nexium] 40 mg capsule,delayed release(DR/EC) 40 mg PO BID Qty: 180 RF: 0 albuterol sulfate [ProAir HFA] 90 mcg/actuation HFA aerosol inhaler 2 puff Inhalation Q4H PRN Qty: 8.5 RF: 5 lorazepam 0.5 mg tablet 0.5 mg PO DAILY PRN (Reason: anxiety) Qty: 2 RF: 0 furosemide 20 mg tablet 20 mg PO DAILY Qty: 90 RF: 3 tramadol 50 mg tablet 50 mg PO Q8H MDD 150 Qty: 90 RF: 0 leflunomide 10 mg tablet 10 mg PO DAILY RF: 0 Remicade 100 mg recon soln 100 mg IV PRN PRNRF: 0 black cohosh 50 mg Capsule 50 mg PO DAILY RF: 0 Discontinued acetaminophen 500 mg capsule 1,000 mg PO Q8H PRN PRNQty: 90 RF: 0 Discharge Instructions Stand Alone Forms: [facility] Knee Arthroscopy Referrals: Mina Lawrence MD [ [facility] STAFF PHYSICIAN] - Equipment/Supplies: Partial Weight Bearing Crutches Activity:: Elevate Remove Dressings/Wound Care:: 72 hours Shower/Bathe:: 72 hours Diet:: As Tolerated Discharge Orders Discharge Orders: Discharge Order (Routine); Ordered 03/30/21 Ordered By: Gerda Diane DS: Diagnosis Discharge Diagnosis (1) Complex tear of medial meniscus of right knee as current injury: Status: Acute
[2021-03-30] MEDS: Bupivacaine 0.5% Pres-Free 30 ML VIAL (09:42)
[2021-03-30] MEDS: fentaNYL 100 MCG/2 ML VIAL IVP ×4 (10:25→10:45)
--- NOTE | 2021-03-30 11:02 | W.ANESNERVE ---
Nerve Block Single Injection Procedure Date and Time Date Performed: 03/30/21 Procedure Start: 10:58 Location Where Procedure Performed Procedure Location: PACU Reason Performed: Postoperative Analgesia Requesting Provider: Mina Lawrence Timeout Performed Timeout Performed: Yes Monitoring Used ECG, Blood Pressure, SpO2, ETCO2 and See EMR for corresponding vital signs Sterility Sterility: Hand Hygiene, Surgical Cap, Surgical Mask, Sterile Gloves, Eye Protection and Chlorhexidine Sedation Given During Procedure Sedation Given (Indicate Dose Given): No Sedation given Patient Mental Status Patient Mental Status: Awake Nerve Block 1st Nerve Block: Laterality: Right Block Type: Adductor Canal Needle / Catheter Used: 100mm SonoPlex II Local Anesthetic Bolus (Indicate Dose Given): Lidocaine used for local infiltration of skin, Injected in 3-5ml increments after negative blood aspiration and Bupivacaine 0.25% Dose:: 15mL Additives (Indicate Dose Given): None Ultrasound: Sterile probe cover and gel used Ultrasound Image Saved?: Yes Nerve Stimulator: Not Used Paresthesia: None Procedure Tolerated: No Complications and Patient tolerated well Procedure Outcome: Successful Performed By: Kristie Wheat
--- NOTE | 2021-03-30 11:28 | W.ANESPOSTOP ---
Postoperative Evaluation Date, Time and Location Date Performed: 03/30/21 Time Performed: 11:28 Patient Location: PACU Vital Signs Most Recent Imported Vital Signs: Most Recent Vital Signs Temp Pulse Resp BP Pulse Ox 36.1 C L 69 12 119/79 100 03/30/21 11:20 03/30/21 11:20 03/30/21 11:20 03/30/21 11:20 03/30/21 11:20 Pain Score Most Recent Pain Score: Most Recent Pain Score Pain Level 3 03/30/21 11:20 Assessment Mental Status: Awake (Alert & Oriented to Patient Baseline) Airway and Respiratory Function: Patent airway with normal (patient baseline) respiratory exam Cardiovascular Function: Hemodynamically Stable Hydration Status: Adequately Hydrated Nausea & Vomiting: No Nausea or Vomiting Pain: Pain is tolerable per patient Peripheral Nerve Block: Regional nerve block not resolved at time of post operative discharge
--- NOTE | 2021-03-30 22:18 | ROE_ITS ---
Date of service: 03/30/21 Time of Service: 10:19 Operative Note Operative Note DATE OF PROCEDURE: 03/30/21 PRE-OP DIAGNOSIS: Right Knee Medial Meniscus Tear POST-OP DIAGNOSIS: same PROCEDURE: Right Knee Arthroscopic Partial Medial Menisectomy SURGEON: Mina Lawrence ANESTHESIA TYPE: General LMA/ETT Refer to Anesthesia Record ESTIMATED BLOOD LOSS: 0 PATHOLOGY: none sent TOURNIQUET TIME: 0 COMPLICATIONS: None Patient was transported to: PACU Patient's condition: stable Indications: I have seen Trini in clinic for symptoms of a meniscus tear. This was confirmed based on MRI and exam findings. Nonoperative measures were exhausted but disability and pain persisted. I discussed knee arthroscopy with meniscal intervention with the patient. I reviewed the risks of the procedure to include, but not limited to, bleeding, infection, pain, stiffness, damage to nerves or vessels, recurrence, blood clot. Despite these risks, the patient elected to proceed. Findings: A diagnostic arthroscopy was performed with the following findings: Suprapatellar Pouch: Mild inflammatory change, No loose bodies Medial Compartment: Complex medial meniscal tear, Intact meniscal root, Mild Grade I chondromalacia, No loose bodies Notch: ACL and PCL were intact Lateral Compartment: No meniscal tear, Intact meniscal root, No significant chondromalacia or signs of arthritis, No loose bodies Patellofemoral Compartment: No significant chondromalacia, No apparent patellar maltracking Procedure Description: Trini was greeted in the preoperative holding area where the correct side was identified and marked. The consent was reviewed with the patient and signed. The history and physical was updated. All questions were answered. She was taken back to the operating room. The patient was placed into the supine position on the operating room table. A nonsterile tourniquet was placed high onto the leg but not used. All bony prominences were well padded. Prophylactic antibiotics in the form of Cefazolin were administered. The right leg was then prepped with Chloraprep and draped in a standard fashion with stockinette and extremity drape. A timeout to confirm correct identity, side and site, procedure, allergies, anesthesia, and medical concerns was performed. The leg was placed into a pneumatic leg dubon, [id number]. A standard lateral portal was made at the lateral border of the patella tendon in line with the i nferior pole of the patella, soft spot. The skin and deep tissue was incised sharply and the blunt trochar was inserted atraumatically. A diagnostic arthroscopy was performed and the findings are listed above. The suprapatellar pouch had mild inflammatory change. The patellofemoral articulation showed no articular damage as well as good tracking. The lateral gutter had no loose bodies and the medial gutter had no loose bodies. The knee was brought into some valgus stress in extension to open the medial compartment. A medial portal was made, localized by a spinal needle. The portal was created with an #11 blade through skin and capsule under direct visualization avoiding any meniscal injury. A probe was then inserted into the medial compartment. The medial compartment was fully inspected. The chondral surface of the tibia showed no significant chondromalacia and the surface of the femur showed Grade I chondromalacia. The medial meniscus had a complex tear with some partial i nvolvement of the posterior root. The root was not destabilized. After evaluation, the meniscus was debrided down to a stable base using a series of biters and arthroscopic jazmin. It was probed afterwards to confirm that the tear had been removed and the meniscus was stable. The notch was then inspected which showed an intact ACL and an intact PCL. The leg was then brought into a figure of 4 position. The lateral compartment was fully inspected with the arthroscope and a probe. The chondral surface of the lateral femur showed no significant chondromalacia. The chondral surface of the lateral tibia showed no significant chondromalacia. The lateral meniscus had no meniscal tear. The arthroscope was brought back into the suprapatellar pouch and the leg was in full extension. The knee was thoroughly irrigated with the arthroscopic fluid on high flow and pressure. Inflow was stopped and excess fluid was removed. The wounds were closed with 4-0 Nylon. They were dressed with Xeroform, 4x4 gauze, ABD pad, Kerlix and an JARETT wrap. A cryo-cuff was applied. The patient tolerated the procedure well and was returned to the Same Day Surgery area in a stable condition suffering no known complication.
== END 2021-03-30 12:53 | disposition home or self-care (01) ==
PROVIDERS: Visit Provider Student in an Organized Health Care Education/Training Program
PROC: (CPT 29870; principal; 2021-03-30 09:45)
DX: M23.231 Derangement of other medial meniscus due to old tear or injury, right knee (principal); M94.261 Chondromalacia, right knee; E11.9 Type 2 diabetes mellitus without complications
CPT/HCPCS: 29881; J0690; J1100; J2001; J2250; J2405; J3010

== ENCOUNTER → 2021-04-12 10:57 | Outpatient (BNVA) | payer MEDICARE, MEDICAID, SELFPAY | PROVIDERS: Visit Provider Student in an Organized Health Care Education/Training Program | DX: Z47.89 Encounter for other orthopedic aftercare (principal) ==

== ENCOUNTER 2021-05-04 01:18 | Outpatient (RCR) | payer MEDICARE, MEDICAID, SELFPAY ==
[2021-03-26 00:05] VITALS: BP 96/69; PULSE 92; RESP 18; TEMP 36.4
[2021-05-04] VITALS (7 sets, daily range): BP systolic 104–142; BP diastolic 58–81; PULSE 68–89; RESP 16–17; TEMP 36.2–36.4; O2SAT 95–99
[2021-05-04] MEDS: Acetaminophen 325 MG TAB 650 MG PO (10:47)
[2021-05-04] MEDS: methylPREDNISolone SUCC 125 MG VIAL 100 MG IVP (10:47)
[2021-05-04] MEDS: diphenhydrAMINE 25 MG CAP PO (10:47)
[2021-05-04] MEDS: Normal Saline Flush 10 ML SYR IVP (10:51)
== END 2021-05-25 23:59 | disposition home or self-care (01) ==
LOC: INF 01:18
PROVIDERS: Visit Provider Internal Medicine
DX: M06.00 Rheumatoid arthritis without rheumatoid factor, unspecified site (principal); Z79.899 Other long term (current) drug therapy
CPT/HCPCS: 96365; 96366; 96374; 96375; 96413; 96415; J1745; J2930

== ENCOUNTER 2021-06-15 11:00 | Outpatient (RCR) | payer MEDICARE, MEDICAID, SELFPAY ==
[2021-05-26 00:12] VITALS: BP 104/58; PULSE 85; RESP 17; TEMP 36.4
[2021-06-15] MEDS: diphenhydrAMINE 25 MG CAP PO (11:16)
[2021-06-15] MEDS: Acetaminophen 325 MG TAB 650 MG PO (11:16)
[2021-06-15] MEDS: methylPREDNISolone SUCC 125 MG VIAL 100 MG IVP (11:18)
[2021-06-15 11:23] VITALS: BP 136/99; PULSE 87; RESP 19; TEMP 36.9; O2SAT 94
[2021-06-15 11:30] LABS: Abs Immature Grans 0.02 10^3/uL (0.0-0.06); Absolute Basophil Count 0.03 10^3/uL (0.0-0.2); Absolute Eosinophil Count 0.09 10^3/uL (0.0-0.7); Absolute Lymphocyte Count 1.63 10^3/uL (1.2-3.4); Absolute Monocyte Count 0.49 10^3/uL (0.1-0.8); Absolute Neutrophil Count 3.76 10^3/uL (1.2-6.7); Basophils % 0.5; Eosinophils % 1.5; HCT 44.1 % (36.0-46.0); HGB 14.6 g/dL (11.2-15.7); Immature Grans % 0.3; Lymphocytes % 27.1; MCH 29.7 pg (27.0-33.0); MCHC 33.1 % (32.0-36.0); MCV 89.8 fL (80-95); MPV 9.8 fL (8.0-11.0); Monocytes % 8.1; Neutrophils % 62.5; Nucleated RBC 0 %; Platelet Count 189 10^3/uL (130-400); RBC 4.91 10^6/uL (3.93-5.22); RDW 13.9 % (11.7-14.6); RDW-SD 45.9 fL; WBC 6.02 10^3/uL (4.4-10.8)
[2021-06-15 11:33] LABS: ESR 24 mm/hr (0-30)
[2021-06-15 11:44] LABS: ALT 47 U/L (14-59); AST 30 U/L (15-37); Albumin 3.2 g/dL (3.4-5.0); Alkaline Phosphatase 89 U/L (46-116); BUN 16 mg/dL (7-18); Bilirubin, Total 0.4 mg/dL (0.2-1.0); CREATININE 0.8 mg/dL (0.55-1.02); Calcium 8.9 mg/dL (8.5-10.1); Chloride 106 mmol/L (98-107); Glucose 128 mg/dL (74-106); Potassium 3.9 mmol/L (3.5-5.1); Sodium 140 mmol/L (136-145); Total Protein 7.3 g/dL (6.4-8.2)
[2021-06-15 11:45] LABS: C-Reactive Protein < 0.05 mg/dL (0.0-0.3)
[2021-06-15] MEDS: Normal Saline Flush 10 ML SYR IVP (12:29)
[2021-06-15 12:40] VITALS: BP 132/87; PULSE 81; RESP 18; TEMP 36.8; O2SAT 94
[2021-06-15 13:00] VITALS: BP 141/88; PULSE 91; RESP 18; TEMP 36.8; O2SAT 98
[2021-06-15 13:20] VITALS: BP 120/79; PULSE 92; RESP 18; TEMP 36.5; O2SAT 92
--- NOTE | 2021-06-15 13:25 | W.DIABETESNO ---
Date of service: 06/15/21 Time of Service: 13:25 Diabetes Note NOTE: Met with Trini in Infusion [facility] today per her request. She reports that her Shira 2 Continuous Glucose Monitor keeps beeping and saying I am low- however, she does not have hypoglycemia symptoms. She reports hunger starting after lunch and having difficulty getting full- eating most of day. BMI indicates class 2 obesity. DM Meds: 70 units Tresiba, Novolog at meals (does not use) and Jardiance 25 mg qd. A1C: 7.1% (10/20/20) Dates: 06/02/21 to 06/15/21 Actual Goal Average Blood Sugar: 123 mg/dl 80-120 mg/dl Glucose Management Indicato: 6.3% < 7% Glucose Variability: 30.4% < 36% Time In Range (70-180 mg/dl) 90% >70% Below 70 mg/dl: 2% < 4% Below 54 mg/dl : 0% < 1% Above 180 mg/dl: 8% < 25% Above 250 mg/dl: 0% < 5% Very tight glycemic control- may be contributing to lack of satiety. Reset low alarm to 60 mg/dl (was set at 80 mg/dl) and this will reduce her alarms going off. Suspect increased hunger may be due to high amount of long acting insulin (.78 units/kg), recommend decreasing to no more than 0.5units/kg= 45 units per day for weight management and appetite control. May also benefit from a GLP1ra such as Rybellus, victoza or ozempic with reduction in Tresiba. 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 Time Spent in Nutritional Counseling and Treatment: 20 min
[2021-06-15 13:35] VITALS: BP 119/79; PULSE 91; RESP 18; TEMP 36.6; O2SAT 96
[2021-06-15 14:10] VITALS: BP 124/81; PULSE 92; RESP 18; TEMP 36; O2SAT 97
== END 2021-06-25 23:59 | disposition home or self-care (01) ==
LOC: INF 11:00
PROVIDERS: Physician Assistant; Visit Provider Internal Medicine
DX: M06.00 Rheumatoid arthritis without rheumatoid factor, unspecified site (principal); Z51.81 Encounter for therapeutic drug level monitoring; E11.9 Type 2 diabetes mellitus without complications; R79.89 Other specified abnormal findings of blood chemistry; K21.9 Gastro-esophageal reflux disease without esophagitis
CPT/HCPCS: 36415; 80053; 85652; 96365; 96366; 96413; 96415; 85025; 86140; J1745; J2930

== ENCOUNTER 2021-08-03 13:21 | Outpatient (REF) | payer MEDICARE, MEDICAID, SELFPAY ==
[2021-08-03 20:31] LABS: *AMPHETAMINES SCREEN URINE Negative (Negative); *BARBITURATES SCREEN URINE Negative (Negative); *BENZODIAZEPINES SCREEN URINE Negative (Negative); Cannabinoids THC Negative (Negative); Cocaine Screen,Urine Negative (Negative); METHADONE URINE SCREEN Negative (Negative); OPIATES URINE SCREEN Negative (Negative)
[2021-08-03 20:35] LABS: Tricyclic Antidepressants Negative (Negative)
== END 2021-08-03 13:22 | disposition home or self-care (01) ==
LOC: LBN 13:21
PROVIDERS: Visit Provider Nurse Practitioner
DX: G89.4 Chronic pain syndrome (principal); Z79.899 Other long term (current) drug therapy
CPT/HCPCS: 80307

== ENCOUNTER → 2021-08-09 08:12 | Outpatient (BNVA) | payer MEDICARE, MEDICAID, SELFPAY | PROVIDERS: Visit Provider Student in an Organized Health Care Education/Training Program | DX: S83.231D Complex tear of medial meniscus, current injury, right knee, subsequent encounter (principal); S83.242D Other tear of medial meniscus, current injury, left knee, subsequent encounter; X58.XXXD Exposure to other specified factors, subsequent encounter | CPT/HCPCS: 99212 ==

== ENCOUNTER 2021-10-12 06:46 | Outpatient (CLI) | payer MEDICARE, MEDICAID, SELFPAY ==
--- NOTE | 2021-10-12 06:45 | RT.EKG_ITS ---
APPROVED REPORT Exam: Resting ECG Reason for Exam: pre op evualation Patient Location: O HR:96 bpm ECG Measurements Heart Rate 96 AXIS [place] 166 P 49 QRSd 73 QRS 28 QT 355 T 46 QTc 448 Conclusion Sinus rhythm...normal P axis, V-rate 60- 99
== END 2021-10-12 06:47 | disposition home or self-care (01) ==
LOC: DI.CM 06:48
DX: M06.0A Rheumatoid arthritis without rheumatoid factor, other specified site; Z79.899 Other long term (current) drug therapy; Z01.818 Encounter for other preprocedural examination; M54.2 Cervicalgia
CPT/HCPCS: 93010

== ENCOUNTER 2021-10-14 10:49 | Outpatient (CLI) | payer MEDICARE, MEDICAID, SELFPAY ==
--- NOTE | 2021-10-14 10:30 | DI.RAD_ITS ---
Exam(s) XR KNEE LT 4V AP,LAT,PK,PAT EXAM: XR KNEE LT 4V AP,LAT,PK,PAT CLINICAL HISTORY: left knee pain. TECHNIQUE: 2D digital imaging was performed. COMPARISON: CR XR KNEE LT 3V AP,LAT,PK from 09/07/2020 FINDINGS: Four views No evidence of fracture but there does appear to be a small joint effusion. This may signify an inte rnal derangement. There is moderate narrowing of the medial compartment evident, more so than previo us. Lateral compartment unremarkable. Patellofemoral compartment unremarkable IMPRESSION: There is now some narrowing of the medial compartment consistent with some degenerative change. Ther e also appears to be a small joint effusion. DATA REPOSITORY: RADIATION DOSE DELIVERED:
== END 2021-10-14 10:50 | disposition home or self-care (01) ==
LOC: DIORS 10:49
PROVIDERS: Visit Provider Student in an Organized Health Care Education/Training Program
DX: M22.2X1 Patellofemoral disorders, right knee (principal); M22.2X2 Patellofemoral disorders, left knee; M23.92 Unspecified internal derangement of left knee; M17.12 Unilateral primary osteoarthritis, left knee; S83.242A Other tear of medial meniscus, current injury, left knee, initial encounter; X58.XXXA Exposure to other specified factors, initial encounter
CPT/HCPCS: 20610; 99214; 73564; J1040

== ENCOUNTER 2021-10-15 01:51 | Outpatient (CLI) | payer MEDICARE, MEDICAID, SELFPAY | END 2021-10-15 01:52 | disposition home or self-care (01) | LOC: LBO 01:52 ==

== ENCOUNTER → 2022-02-07 10:14 | Outpatient (BNVA) | payer MEDICARE, MEDICAID, SELFPAY | PROVIDERS: Visit Provider Student in an Organized Health Care Education/Training Program | DX: M23.91 Unspecified internal derangement of right knee (principal); M23.92 Unspecified internal derangement of left knee | CPT/HCPCS: 20610; J1040 ==

== ENCOUNTER → 2022-04-06 01:46 | Outpatient (CLI) | payer MEDICARE, MEDICAID, SELFPAY ==
--- NOTE | 2022-04-06 06:30 | DI.US_ITS ---
Exam(s) US ABDOMEN EXAM: US ABDOMEN INDICATION: abnl LFTs,R79.89 COMPARISON: No exams were available for comparison TECHNIQUE: Ultrasound abdomen performed using standard protocol FINDINGS: Abdominal ultrasound was performed according to the usual protocol. The liver is normal in size and shape. No focal hepatic lesion seen. There is no evidence of cholelithiasis or biliary dilatation. No gallbladder wall thickening or peric holecystic fluid collection. Portal venous flow is hepatopetal. Pancreas appears intact as visualized. Spleen is unremarkable in appearance with no focal lesion. Kidneys are normal in size and shape. No renal mass, hydronephrosis, or nephrolithiasis. Abdominal aorta and IVC are of normal diameter. IMPRESSION: Negative abdominal ultrasound .
== END ==
PROVIDERS: Visit Provider Family Medicine
DX: R79.89 Other specified abnormal findings of blood chemistry (principal)
CPT/HCPCS: 76700

== ENCOUNTER 2022-05-02 19:26 | Outpatient (REF) | payer MEDICARE, MEDICAID, SELFPAY | END 2022-05-02 19:27 | disposition home or self-care (01) | LOC: LBN 19:26 | PROVIDERS: Visit Provider Physician Assistant | DX: J02.9 Acute pharyngitis, unspecified (principal) | CPT/HCPCS: 87070 ==